=== PATIENT | female | born 1950 | race Caucasian/White ===

== ENCOUNTER 2020-03-06 07:26 | Day surgery (SDC) | payer MEDICARE, SELFPAY ==
[2020-02-29 19:52] VITALS: BMI 36.6
--- NOTE | 2020-03-05 10:35 | P.CONAN_ITS ---
HPI - Anesthesia Eval Consult details Narrative: 69yo F for Colonoscopy [facility] Past Medical History Medical History Arthritis Back pain Depression Diabetes mellitus type 2, diet-controlled Diverticulitis Elevated cholesterol History of benign schwannoma Hypertension Obesity Surgical History Surgical History History of bowel resection History of colonoscopy Social History Social History Smoking Status: Former smoker Meds Allergies Allergy/AdvReac Type Severity Reaction Status Date / Time latex AdvReac Mild Rash Verified 02/29/20 19:51 Codeine Sulfate Allergy Severe Hives Uncoded 02/29/20 19:50 Home Medications Medication Instructions Recorded Confirmed Type Ocuvite 03/06/20 03/06/20 History Vitamin D3 2,000 PO DAILY 03/06/20 History amlodipine 1 tab PO DAILY 03/06/20 03/06/20 History atenolol 1 tab PO DAILY 03/06/20 03/06/20 History citalopram tab PO 03/06/20 History flaxseed oil 03/06/20 History hydrochlorothiazide 1 tab PO DAILY 03/06/20 03/06/20 History rosuvastatin 1 tab PO BEDTIME 03/06/20 03/06/20 History Exam Exam Date and Time: March 05, 2020 1035 Height,Weight and Vital Signs: Height 5 ft 5 in Weight 99.79 kg
[2020-03-06 08:04] VITALS: BP 127/62; PULSE 55; RESP 16; TEMP 36.9; O2SAT 96
--- NOTE | 2020-03-06 08:12 | P.CONAN_ITS ---
[facility] Past Medical History Medical History Arthritis Back pain Depression Diabetes mellitus type 2, diet-controlled Diverticulitis Elevated cholesterol History of benign schwannoma Hypertension Obesity Surgical History Surgical History History of bowel resection History of colonoscopy Social History Social History Smoking Status: Former smoker Smoked in Last 30 Days: No Smoking Quit Date: 2004 Use of substances other than those prescribed or required for medical reasons: No Advance Directives: No Advance Directives Information Provided: No Advance Directives on File: No Recently lost weight without trying: No Meds Allergies Allergy/AdvReac Type Severity Reaction Status Date / Time latex AdvReac Mild Rash Verified 02/29/20 19:51 Codeine Sulfate Allergy Severe Hives Uncoded 02/29/20 19:50 Home Medications Medication Instructions Recorded Confirmed Type Ocuvite 03/06/20 03/06/20 History Vitamin D3 2,000 PO DAILY 03/06/20 History amlodipine 1 tab PO DAILY 03/06/20 03/06/20 History atenolol 1 tab PO DAILY 03/06/20 03/06/20 History citalopram tab PO 03/06/20 History flaxseed oil 03/06/20 History hydrochlorothiazide 1 tab PO DAILY 03/06/20 03/06/20 History rosuvastatin 1 tab PO BEDTIME 03/06/20 03/06/20 History Exam Exam Date and Time: March 06, 2020 0812 Height,Weight and Vital Signs: Height 5 ft 5 in Weight 99.79 kg Last Vital Signs Temp 98.4 F 03/06/20 08:04 Pulse 55 03/06/20 08:04 Resp 16 03/06/20 08:04 BP 127/62 03/06/20 08:04 Pulse Ox 96 03/06/20 08:04 Airway Mallampati Class: II TM Dist: >3cm Neck ROM: Full Loose/Missing/Broken Teeth: No Heart: RRR Lungs: CTA Assessment and Plan Assessment Anesthesia Assessment: Anesthesia Plan Discussed and Chart Reviewed Final Anesthetic Review NPO: Yes ASA Class: II Final Preanesthetic Review: No Changes in Pt Med Stat, Meds/Allgs Chart Reviewed, Consent Obtained/Reviewed and Anes Risks/Benef Reviewed Patient Risk: Intermediate Procedure Risk: Low Anesthetic Plan Anesthetic Plan: MAC: Disposition: Standard PACU
[2020-03-06] MEDS: Lactated Ringers 1,000 ML 100 ML IVCONT (08:15)
--- NOTE | 2020-03-06 08:40 | MHC.SHP ---
Pre-Procedural Eval Section B Chief Complaint: SCREENING Relevant Family History (Specify if Yes): No Relevant Social History: None Present Medications: see Short Stay Collaborative assessment Medical History: Significant History (HTN) History of Previous Operations: Relevant previous surgery/procedure and date(s) (colon resection,perf tic) Allergies: Allergies Allergy/AdvReac Type Severity Reaction Status Date / Time latex AdvReac Mild Rash Verified 02/29/20 19:51 Codeine Sulfate Allergy Severe Hives Uncoded 02/29/20 19:50 Review of Systems Sugical H&P ROS: Negative: Constitution, Cardiovascular, Respiratory, Neurological, Psychiatric, Hem-Onc, Allergic/Immunologic, Gastrointestinal, Genitourinary, Musculoskeletal, Integumentary, Endocrine and Eyes/Ears/Nose/Throat Exam Surgical H&P Exam: Normal: HEENT, Normal: Heart, Normal: Lungs, Normal: Extremities, Normal: Abdomen, Normal: Skin and Normal: Neurological Plan Diagnosis/Plan: Unchanged Patient has been examined and remains a candidate for the planned procedure
--- NOTE | 2020-03-06 08:41 | PM.OP ---
Brief Operative Note Date of Service: 03/06/20 Pre-op diagnosis: colon screen Post-op diagnosis: same Procedure: Operative Information Procedure Description: Colonoscopy COLONOSCOPY Instrument: Olympus variable stiffness pediatric scope 190L Colonoscopy Monitoring: Vital signs and clinical assessment, continuous EKG monitoring, Pulse oximetry, Carbon Dioxide monitoring and blood pressure monitoring were done throughout the procedure. Colon withdrawal time was 16 minutes. Procedure: The patient was placed in the left lateral decubitis position and pre-procedure medications were administered. After a digital rectal examination of the ano-rectum, the video colonoscope was inserted into the rectum and advanced through the colon to the cecum/TI. The colonoscope was slowly withdrawn in a retrograde panoramic fashion and the colon mucosa was carefully examined including a retroflexed view of the rectum. Findings and interventions are described below. Procedure Difficulty: Findings: Terminal Ileum-normal Cecum:normal Ascending Colon: x 2 sessile polyps removed with cold snare, measured about 8-10 mm each, one site was oozing -x 2 clips applied with cessation Transverse Colon -normal Descending Colon:diverticulosis noted Sigmoid Colon: end to end anastomosis noted from prior surgery Rectum: Retroflexion with small internal hemorrhoids, grade I, sessile polyp 8-9 mm removed with cold snare Anorectum - normal Colon preparation: Fenton Bowel Preparation Scale Right colon; 3 Transverse colon: 2 Left colon; 2 (0 = Unprepared colon segment with mucosa not seen due to solid stool that cannot be cleared. 1 = Portion of mucosa of the colon segment seen, but other areas of the colon segment not well seen due to staining, residual stool and/or opaque liquid. 2 = Minor amount of residual staining, small fragments of stool and/or opaque liquid, but mucosa of colon segment seen well. 3 = Entire mucosa of colon segment seen well with no residual staining, small fragments of stool or opaque liquid) Impression and Post Procedure Diagnosis: internal hemorrhoids polyps diverticulosis Plan: High fiber diet leaflet Avoid straining at stool, epsom salts and sitz bath, anusol supps or cream prn Repeat Colonoscopy in 3-5 years pending path or earlier if clinically indicated Above findings were reviewed with the patient and relevant handouts were provided if indicated. Surgeon: Vivian Mcwilliams MD Anesthesia: MAC Estimated blood loss (mL): 0 Condition: stable Disposition: PACU
[2020-03-06 09:20] VITALS: BP 104/49; PULSE 52; RESP 18; TEMP 36.1; O2SAT 98
[2020-03-06 09:35] VITALS: BP 123/60; PULSE 55; RESP 18; O2SAT 99
[2020-03-06 09:49] VITALS: BP 132/65; PULSE 50; RESP 18; TEMP 36.1; O2SAT 98
--- NOTE | 2020-03-06 10:02 | HO.POSTANES ---
Post Anesthesia Evaluation Post Anesthesia Evaluation Vital Signs: Vital Signs Temp Pulse Resp BP Pulse Ox 03/06/20 09:49 97 F 50 18 132/65 98 03/06/20 09:35 55 18 123/60 99 03/06/20 09:20 97.0 F 52 18 104/49 L 98 03/06/20 08:04 98.4 F 55 16 127/62 96 Anesthesia: Monitored Mental Status: Awake Pain Control: Satisfactory Nausea/Vomiting: None Hydration: Adequate Anesthesia-Related Issues: No Anes. Related Issues
== END 2020-03-06 10:28 | disposition home or self-care (01) ==
PROVIDERS: PCP Hospitalist; Visit Provider Internal Medicine Gastroenterology
PROC: 0DJD8ZZ Inspection of Lower Intestinal Tract, Via Natural or Artificial Opening Endoscopic (ICD-10-PCS; CPT 45378; principal; 2020-03-06 08:30)
DX: Z12.11 Encounter for screening for malignant neoplasm of colon (principal); D12.2 Benign neoplasm of ascending colon; K62.1 Rectal polyp; K57.30 Diverticulosis of large intestine without perforation or abscess without bleeding; K64.0 First degree hemorrhoids; Z98.0 Intestinal bypass and anastomosis status
CPT/HCPCS: 45385; 45380; 88305

== ENCOUNTER → 2020-03-13 08:49 | Outpatient (BNVA) | payer MEDICARE, SELFPAY | PROVIDERS: Visit Provider Physician Assistant | DX: Z13.89 Encounter for screening for other disorder (principal) | CPT/HCPCS: Q3014 ==

== ENCOUNTER 2021-05-18 08:55 | Outpatient (REF) | payer MEDICARE, SELFPAY ==
[2021-05-18 11:20] LABS: Hematocrit 42.7 % (37.0-47.0); Hemoglobin 13.7 g/dl (12.0-16.0); Mean Corpuscular HGB Conc 32.1 g/dl (31.0-35.0); Mean Corpuscular Hemoglobin 28.7 pg (27.0-33.0); Mean Corpuscular Volume 89.3 fL (80.0-98.0); Mean Platelet Volume 10.3 fL (9.4-12.3); Platelet Count 314 X10*3/uL (160-400); Red Blood Count 4.78 X10*6/uL (4.20-5.50); Red Cell Distribution Width 12.6 % (11.0-16.0); White Blood Count 5.9 X10*3/uL (4.8-10.8)
[2021-05-18 11:45] LABS: Alanine Aminotransferase 27 U/L (0-31); Albumin Level 4.5 g/dL (3.5-5.0); Alkaline Phosphatase 54 U/L (39-117); Anion Gap 14 (12-20); Aspartate Amino Transferase 36 U/L (5-31); Bilirubin Total 0.6 mg/dL (0.0-1.0); Blood Urea Nitrogen 18 mg/dL (9-16); Calcium 9.8 mg/dL (8.4-10.2); Carbon Dioxide 28 mmol/L (22-29); Chloride 101 mmol/L (96-108); Cholesterol 151 mg/dL; Estimated Glomerular Filt Rate > 60; Glucose Fasting 114 mg/dL (60-99); HDL Cholesterol 43 mg/dL; LDL Cholesterol Calculated 83 mg/dl; Sodium 139 mmol/L (135-145); Total Protein 7.1 g/dL (6.5-8.0); Triglycerides 126 mg/dL
== END 2021-05-18 08:56 | disposition home or self-care (01) ==
LOC: HO.WFDLDS 08:55
PROVIDERS: Visit Provider Hospitalist
DX: Z00.00 Encounter for general adult medical examination without abnormal findings (principal)
CPT/HCPCS: 36415; 80053; 80061; 84443; 85027

== ENCOUNTER 2022-02-02 09:55 | Outpatient (REF) | payer MEDICARE, SELFPAY ==
--- NOTE | ~2022-02-02 | MM_ITS ---
EXAMINATION: MM SCREENING DIGITAL BREAST TOMOSYNTHESIS, BILATERAL CLINICAL INFORMATION: Screening. Asymptomatic. Prior [id number] mammography currently unavailable. No known family history breast cancer. COMPARISON: None. TECHNIQUE: Digital breast tomosynthesis is performed in both the craniocaudal and mediolateral oblique views along with computer-aided detection (CAD). Synthesized 2D images are generated from the tomosynthesis. Additional bilateral exaggerated CC views are provided. FINDINGS: There are scattered areas of fibroglandular density (ACR BI-RADS breast composition Category b). There are no significant masses, abnormal calcifications, or other abnormalities. No architectural abnormality. The axilla and skin contours are unremarkable. Radiology department staff will attempt to retrieve prior [id number] mammography to allow for comparison in an addendum report. MM/MM tomosynthesis screening BI IMPRESSION: No mammographic evidence of malignancy. ASSESSMENT: BI-RADS 1: Negative RECOMMENDATION: -Routine annual mammography screening. -Radiology department staff will attempt to retrieve prior [id number] mammography to allow for comparison in an addendum report. This patient's information was entered into a reminder system with a target due date for their next mammogram.
== END 2022-02-02 09:56 | disposition home or self-care (01) ==
LOC: HO.MAMMO 09:55
PROVIDERS: Visit Provider Hospitalist
DX: Z12.31 Encounter for screening mammogram for malignant neoplasm of breast (principal)
CPT/HCPCS: 77063; 77067

== ENCOUNTER 2022-07-09 07:47 | Outpatient (REF) | payer MEDICARE, SELFPAY ==
[2022-07-09 08:09] LABS: Hematocrit 42.3 % (37.0-47.0); Mean Corpuscular HGB Conc 33.1 g/dl (31.0-35.0); Mean Corpuscular Hemoglobin 29.3 pg (27.0-33.0); Mean Corpuscular Volume 88.5 fL (80.0-98.0); Mean Platelet Volume 9.7 fL (9.4-12.3); Platelet Count 297 X10*3/uL (160-400); Red Blood Count 4.78 X10*6/uL (4.20-5.50); Red Cell Distribution Width 13.3 % (11.0-16.0); White Blood Count 7.4 X10*3/uL (4.8-10.8)
[2022-07-09 08:36] LABS: Alanine Aminotransferase 19 U/L (0-31); Albumin Level 4.3 g/dL (3.5-5.0); Alkaline Phosphatase 63 U/L (39-117); Anion Gap 11 (12-20); Aspartate Amino Transferase 21 U/L (5-31); Bilirubin Total 0.6 mg/dL (0.0-1.0); Blood Urea Nitrogen 11 mg/dL (9-16); Calcium 9.5 mg/dL (8.4-10.2); Carbon Dioxide 30 mmol/L (22-29); Chloride 105 mmol/L (96-108); Cholesterol 163 mg/dL; Estimated Glomerular Filt Rate > 60; Glucose Fasting 121 mg/dL (60-99); HDL Cholesterol 46 mg/dL; LDL Cholesterol Calculated 92 mg/dl; Potassium 4.5 mmol/L (3.3-5.1); Sodium 141 mmol/L (135-145); Total Protein 6.6 g/dL (6.5-8.0); Triglycerides 127 mg/dL
[2022-07-09 08:51] LABS: TSH reflex Free T4 1.19 uIU/mL (0.32-4.0)
== END 2022-07-09 07:48 | disposition home or self-care (01) ==
LOC: HO.LAB 07:47
PROVIDERS: PCP Hospitalist; Visit Provider Hospitalist
DX: Z00.00 Encounter for general adult medical examination without abnormal findings (principal); R53.83 Other fatigue; E11.9 Type 2 diabetes mellitus without complications; I10 Essential (primary) hypertension
CPT/HCPCS: 36415; 80053; 80061; 84443; 85027

== ENCOUNTER 2022-07-31 07:32 | Outpatient (REF) | payer MEDICARE, SELFPAY ==
[2022-07-31 08:34] LABS: Estimated Average Glucose 120 mg/dL; Hemoglobin A1C 148.4108 umol/L; Hemoglobin A1c % 5.8 %
== END 2022-07-31 07:33 | disposition home or self-care (01) ==
LOC: HO.LAB 07:32
PROVIDERS: Visit Provider Hospitalist
DX: R73.9 Hyperglycemia, unspecified (principal)
CPT/HCPCS: 36415; 83036

== ENCOUNTER 2023-03-29 11:21 | Outpatient (AMB) | payer MEDICARE, SELFPAY ==
--- NOTE | 2023-03-29 11:22 | A.OFFPC_ITS ---
Vital Signs 03/29/23 11:23 Height 5 ft 4.25 in Weight 223 lb 6 oz BMI 38.0 BP 136/82 Blood Pressure Location Rt brachial Position Sitting Respiration 13 Pulse 99 Pulse Source Pulse Oximeter Temp 97.5 F Temp Source Temporal Artery Scan Pulse Oximetry (%) 99 Oxygen Delivery Method Room Air Intake Visit Reasons: Citalopram and atenolol refills Intake Note: Patient would like to also see if her rosuvastatin is suppose to be at current dosing. Briquette Operator Required: No Accompanied by: Self / Same As Patient Allergies codeine Allergy (Severe, Verified 03/29/23 11:37) Codeine Sulfate- HIVES latex Adverse Reaction (Mild, Verified 03/29/23 11:37) Rash Medication List - Last Reconciled 03/29/23 by Francisco Schrader CNP amlodipine 5 mg PO DAILY atenolol 50 mg PO DAILY cetirizine (Zyrtec) 10 mg PO DAILY citalopram 40 mg PO DAILY 3 months [flaxseed oil ] fluticasone propionate 50 mcg/actuation (Allergy Relief (fluticasone)) 2 sprays intranasal DAILY PRN hydrochlorothiazide 25 mg PO DAILY [Ocuvite ] rosuvastatin 20 mg PO BEDTIME [Vitamin D3 2,000 PO DAILY] Tobacco use date assessed: 03/29/23 Fall risk assessment: 2 + Falls in past year Last assessed Fall Risk: 03/29/23 Dental Screening Dental Screen Date: 03/29/23 Did you have a dental visit in the last 12 months?: No Did you have a dental problem in the last 6 months where you did not have access to dental care?: No Was dental information given to patient?: Patient has dentist HPI HPI Comments History of Present Illness Details 72-year-old female presents for medicati on refills Her former PCP is LUIS FERNANDO who is no longer with the practice. Her last office visit and blood work was in June 2022 She has history of hypertension, HTN, obesity, pre-diabetes, anxiety, and depression She offers no complaints and denies acute symtoms at this time She requests refills of her Citalopram and Atenolol. She notes that she ran out of Atenolol 3 weeks ago and has not been taking the medication [facility] Medical History (Updated 03/29/23 @ 12:21 by Francisco Schrader CNP) Obesity History of benign schwannoma Arthritis Back pain Diverticulitis Diabetes mellitus type 2, diet-controlled Depression Elevated cholesterol Hypertension Surgical History History of surgery History of colonoscopy History of bowel resection Family History Family/Other Chronic mental illness Son In good health Son In good health Daughter In good health Mother Alzheimer disease Social History Housing: House Patient Tobacco Use Status: Former Tobacco user e-Cigarette/Vaping Use: Never Used Second Hand Smoke Exposure: No service: No Current occupational status: retired Current occupational exposures/hazards: No Cognitive needs: No Hearing needs: Yes Vision needs: Yes Questionnaire AASHISH-7 AMB Questionnaire AASHISH-7 Date AASHISH - 7 assessed: 07/08/22 Source: Developed by Drs. William Haji, Kristy Baker, Jeffrey Duran and colleagues, with an educational aranza from [employer]. Review of Systems Const Details: Const Denies chills, Denies fatigue, Denies fever(s), Denies headache(s) and Denies weakness ENT Denies dizziness and Denies headache(s) Card Denies chest pain, Denies lightheadedness, Denies dyspnea and Denies other (Palpitations) Resp Denies cough, Denies dyspnea, Denies wheezing and Denies other ( shortness of breath) GI Denies abdominal pain, Denies melena, Denies hematochezia, Denies change in bowel habits, Denies dyspepsia and Denies nausea Denies hematuria and Denies dysuria Musc Denies abnormal gait, Denies myalgias, Denies arthralgias, Denies numbness and Denies tingling Skin/Breast Denies rash, Denies unusual bruising and Denies wounds Neuro Denies abnormal gait, Denies dizziness, Denies headache(s), Denies memory loss, Denies numbness, Denies Sensory deficit (Neuro), Denies tingling and Denies weakness Psych Denies anxiety, Denies depression, Denies memory loss Endo Denies cold intolerance, Denies fatigue, Denies heat intolerance, Denies polydipsia and Denies polyuria Aller/Immun Denies wheezing Physical exam (Primary Care) Vital Signs: Last Vital Signs Temp 97.5 F 03/29/23 11:23 Pulse 99 03/29/23 11:23 Resp 13 03/29/23 11:23 BP 136/82 03/29/23 11:23 Pulse Ox 99 03/29/23 11:23 Oxygen Delivery Method Room Air 03/29/23 11:23 BMI result Body Mass Index 38.0 Tobacco/Smoking Status: Tobacco use Status Tobacco use date assessed 03/29/23 03/29/23 11:36 Patient Tobacco Use Status Former Tobacco user 03/29/23 11:36 e-Cigarette/Vaping Use Never Used 03/29/23 11:36 Const Other: General: no acute distress and well developed Nutritional Appearance: well nourished Orientation/consciousness: patient oriented x3 HENMT Head: Yes normocephalic and Yes atraumatic Eyes General: appearance normal, both eyes and all related structures Pupils: Equal, round and reactive pupils present EOM: EOMs intact bilaterally Resp Effort & Inspection: normal respiratory effort Auscultation: clear to auscultation bilaterally Cardio Rate: regular rate Rhythm: regular rhythm Heart sounds: S1 normal heart sound present, S2 normal heart sound present, no gallops, no murmurs and no rubs GI Palpation (GI): No Abdominal aortic bruit present, Soft to palpation, nontender, No hepatosplenomegaly present and No Rebound tenderness present Auscultation: normal bowel sounds General: Yes no CVA tenderness Back/Spine/Pelvis Back: no CVA tenderness Cervical Spine: cervical ROM normal and No Cervical spine tenderness Thoracic/Lumbar Spine: thoraco-lumbar ROM normal, No pain with thoraco-lumbar ROM, No thoracic spinal tenderness and No lumbar spinal tenderness Extrem General: Yes normal to inspection, No edema and No calf tenderness Skin General: warm and dry. Normal skin color. Normal skin turgor Lesions: no lesions Rashes: no rashes Trauma: no lacerations or abrasions Wounds: no wounds Nails: normal Neuro General: patient oriented x3, gait normal and no focal neuro deficit Cranial nerves: Yes Equal, round and reactive pupils present Cognition (Neuro): normal cognition Gait exam (Neuro): Normal gait present Sensory Exam: No Sensory deficit (Neuro) Psych Appearance: grossly normal Affect: normal affect Attitude: cooperative Thought process: Normal thought process present Assessment and Plan Assessment & Plan (1) Hypertension: Code(s): I10 - Essential (primary) hypertension Plan: BP is 136/82, withing goal of less than 149/90 Atenolol ordered Continue current treatment regimen Follow-up as planned for transfer of care Return with symptoms or concerns Verbalized understanding and agreed with treatment plan (2) Elevated cholesterol: Code(s): E78.00 - Pure hypercholesterolemia, unspecified Plan: Lipid panel ordered. Will make changes as needed Continue current treatment regimen Follow-up as planned Verbalized understanding and agreed with treatment plan (3) Anxiety and depression: Code(s): F41.9 - Anxiety disorder, unspecified; F32.A - Depression, unspecified Plan: Citalopram refilled. Advised to take as prescribed Follow-up as planned for transfer of care Verbalized understanding and agreed with plan Orders: Orders Lipid Panel Today E78.00 - Pure hypercholesterolemia, unspecified Medications: Changed From fluticasone propionate 50 mcg/actuation (Allergy Relief (fluticasone)) administer into each nostril 2 sprays intranasal DAILY 1 month 16 grams 6RF J30.2 - Other seasonal allergic rhinitis To fluticasone propionate 50 mcg/actuation (Allergy Relief (fluticasone)) administer into each nostril 2 sprays intranasal DAILY PRN J30.2 - Other seasonal allergic rhinitis From citalopram 40 mg PO DAILY 3 months 90 tabs 1RF F32.9 - Major depressive disorder, single episode, unspecified To citalopram 40 mg PO DAILY 90 days 90 tabs 1RF F32.9 - Major depressive disorder, single episode, unspecified Refilled atenolol 50 mg PO DAILY 90 tabs 1RF Coding Level of Care Code Est Pt Level 3 (33988) Diagnoses Hypertension I10 Elevated cholesterol E78.00 Anxiety and depression F41.9; F32.A
[2023-03-29 11:23] VITALS: BP 136/82; PULSE 99; RESP 13; TEMP 36.4; O2SAT 99; BMI 38.0
== END 2023-03-29 12:01 | disposition home or self-care (01) ==
PROVIDERS: PCP Hospitalist; Visit Provider Nurse Practitioner Family
DX: I10 Essential (primary) hypertension (principal); E78.00 Pure hypercholesterolemia, unspecified; F41.9 Anxiety disorder, unspecified; F32.A Depression, unspecified
CPT/HCPCS: 99213

== ENCOUNTER 2023-04-02 07:11 | Outpatient (REF) | payer MEDICARE, SELFPAY | END 2023-04-02 07:12 | disposition home or self-care (01) | LOC: HO.LAB 07:11 | PROVIDERS: PCP Nurse Practitioner Family; Visit Provider Nurse Practitioner Family | DX: E78.00 Pure hypercholesterolemia, unspecified (principal) | CPT/HCPCS: 36415; 80061 ==

== ENCOUNTER 2023-04-26 11:03 | Outpatient (AMB) | payer MEDICARE, SELFPAY ==
--- NOTE | 2023-04-26 11:05 | MHC.PC.OV ---
Vital Signs 04/26/23 11:06 Height 5 ft 4.25 in Weight 225 lb BMI 38.3 BP 132/68 Blood Pressure Location Rt brachial Position Sitting Respiration 14 Pulse 92 Pulse Source Pulse Oximeter Temp 97.4 F Temp Source Temporal Artery Scan Pulse Oximetry (%) 98 Oxygen Delivery Method Room Air Intake Visit Reasons: Transfer of care - see comment Microchip Specialist Required: No Accompanied by: Self / Same As Patient Allergies codeine Allergy (Severe, Verified 04/26/23 11:21) Codeine Sulfate- HIVES latex Adverse Reaction (Mild, Verified 04/26/23 11:21) Rash Medication List - Last Reconciled 04/26/23 by Francisco Schrader CNP amlodipine 5 mg PO DAILY atenolol 50 mg PO DAILY cetirizine (Zyrtec) 10 mg PO DAILY citalopram 40 mg PO DAILY 90 days [flaxseed oil ] fluticasone propionate 50 mcg/actuation (Allergy Relief (fluticasone)) 2 sprays intranasal DAILY PRN hydrochlorothiazide 25 mg PO DAILY [Ocuvite ] rosuvastatin 20 mg PO BEDTIME [Vitamin D3 2,000 PO DAILY] Tobacco use date assessed: 04/26/23 Fall risk assessment: 2 + Falls in past year Last assessed Fall Risk: 04/26/23 Dental Screening Dental Screen Date: 04/26/23 Did you have a dental visit in the last 12 months?: No Did you have a dental problem in the last 6 months where you did not have access to dental care?: No Was dental information given to patient?: Patient has dentist HPI HPI Comments History of Present Illness Details 72-year-old female presents for transfer of care Her former PCP is LUIS FERNANDO who is no longer with the practice. Her last physical was in 05/2021. Her last office visit and blood work was in June 2022 She has history of hypertension, HTN, obesity, pre-diabetes, anxiety, depression, and tubular adenoma of colon She admits to taking her medications as prescribed without adverse reactions She notes that she is tired and sad. She also reports lack of energy and pleasure in doing things she enjoys. She states that the world and news is toxic. She attributes most of her symptoms related missing her children who live in [facility] and her best friend who form brain infection a few months ago. She lives with her whom she has been to for 26 years. Her is very supportive. Celexa is no longer effective in managing her symptoms. She has not been doing physical exercise. Last colonoscopy almost 2 years ago: tubular adenoma. She is required to have colonoscopy every 2 years She no longer performs pap smears tests Last bone density scan about 10 years ago: osteopenia PNA/Shingrix/Flu vaccines: up-to-date [facility] Medical History (Updated 04/26/23 @ 12:13 by Francisco Schrader CNP) Obesity History of benign schwannoma Arthritis Back pain Diverticulitis Diabetes mellitus type 2, diet-controlled Depression Elevated cholesterol Hypertension Surgical History History of surgery History of colonoscopy History of bowel resection Family History (Updated 04/26/23 @ 11:20 by Loretta Clarke MA) Family/Other Chronic mental illness Son In good health Son In good health Daughter In good health Lupus Mother Alzheimer disease Other Mental health disorder Social History Housing: House Patient Tobacco Use Status: Former Tobacco user e-Cigarette/Vaping Use: Never Used Second Hand Smoke Exposure: No service: No Current occupational status: retired Current occupational exposures/hazards: No Cognitive needs: No Hearing needs: Yes Vision needs: Yes Questionnaire PHQ-9 Over the last 2 weeks, how often have you been bothered by any of the following problems? 1. Little interest or pleasure in doing things: nearly every day 2. Feeling down, depressed, or hopeless: more than half the days 3. Trouble falling or staying asleep, or sleeping too much: nearly every day 4. Feeling tired or having little energy: nearly every day 5. Poor appetite or overeating: nearly every day 6. Feeling bad about yourself - or that you are a failure or have let yourself or your family down: more than half the days 7. Trouble concentrating on things, such as reading the newspaper or watching television: nearly every day 8. Moving or speaking so slowly that other people could have noticed. Or the opposite - being so fidgety or restless that you have been moving around a lot more than usual: several days 9. Thoughts that you would be better off or of hurting yourself in some way: not at all Total score: 20 Depression Screening Interpretation: Positive Depression Screening Follow-up: Existing condition, In treatment, New Medication prescribed and Community Mental Health Worker F/U Depression Screening Done: Yes 66350 - PHQ-9 Billing: Yes Source: Developed by Drs. William Haji, Kristy Baker, Jeffrey Duran and colleagues, with an educational aranza from [employer]. Thrive Questionnaire Date Thrive assessed: 04/26/23 I am a: Patient What is your living situation today?: I have a steady place to live Within the past 12 months, did the food you bought not last and you didn't have the money to get more?: Never true Within the past 12 months, did you worry whether your food would run out before you got money to buy more?: Never true Do you have trouble paying for medicines?: No Do you have trouble getting transportation to medical appointments?: No Do you have trouble paying your heating and electricity bill?: No Do you have trouble taking care of your child, family member or friend?: No Do you have trouble with day-to-day activities such as bathing, preparing meals, shopping, managing finances, etc.?: No Are you currently unemployed and looking for a job?: No Are you interested in more education?: No Please select the resources that you would like help with: None Currently or been in a relationship where the following occur: no concerns reported THRIVE Score: 0 AUDIT C Alcohol Use Questionnaire (AUDIT-C) 1. How often do you have a drink containing alcohol?: Never 3. How often do you have six or more drinks on one occasion?: Never Total Score: 0 AASHISH-7 AMB Questionnaire AASHISH-7 Date AASHISH - 7 assessed: 04/26/23 Feeling nervous, anxious, or on edge: 1 = Several days Not being able to stop or control worryin = Several days Worrying too much about different things: 0 = Not at all Trouble relaxin = Not at all Being so restless that it is hard to sit still: 0 = Not at all Becoming easily annoyed or irritable: 1 = Several days Feeling afraid as if something awful might happen: 0 = Not at all Total AASHISH-7 score (0-4 normal; 5-9 mild; 10-14 moderate; 15-21 severe): 3 Source: Developed by Drs. William Haji, Kristy Baker, Jeffrey Duran and colleagues, with an educational aranza from [employer]. AASHISH-7 Assessment Billing AASHISH-7 Assessment Tool: AASHISH-7 Assessment 36726 Review of Systems Const Details: Const Denies chills, Denies fatigue, Denies fever(s), Denies headache(s) and Denies weakness ENT Denies dizziness and Denies headache(s) Card Denies chest pain, Denies lightheadedness, Denies dyspnea and Denies other (Palpitations) Resp Denies cough, Denies dyspnea, Denies wheezing and Denies other ( shortness of breath) GI Denies abdominal pain, Denies melena, Denies hematochezia, Denies change in bowel habits, Denies dyspepsia and Denies nausea Denies hematuria and Denies dysuria Musc Denies abnormal gait, Denies myalgias, Denies arthralgias, Denies numbness and Denies tingling Skin/Breast Denies rash, Denies unusual bruising and Denies wounds Neuro Denies abnormal gait, Denies dizziness, Denies headache(s), Denies memory loss, Denies numbness, Denies Sensory deficit (Neuro), Denies tingling and Denies weakness Psych Denies anxiety, Reports depression, Denies memory loss Endo Denies cold intolerance, Denies fatigue, Denies heat intolerance, Denies polydipsia and Denies polyuria Aller/Immun Denies wheezing Physical exam (Primary Care) Tobacco/Smoking Status: Tobacco use Status Tobacco use date assessed 03/29/23 03/29/23 11:36 Patient Tobacco Use Status Former Tobacco user 03/29/23 11:36 e-Cigarette/Vaping Use Never Used 03/29/23 11:36 Depression Screening Interpretation: Positive Depression Screening Follow-up: Existing condition, In treatment, New Medication prescribed and Community Mental Health Worker F/U Currently or been in a relationship where the following occur: no concerns reported Const Other: General: no acute distress and well developed Nutritional Appearance: well nourished Orientation/consciousness: patient oriented x3 HENMT Head: Yes normocephalic and Yes atraumatic Eyes General: appearance normal, both eyes and all related structures Pupils: Equal, round and reactive pupils present EOM: EOMs intact bilaterally Resp Effort & Inspection: normal respiratory effort Auscultation: clear to auscultation bilaterally Cardio Rate: regular rate Rhythm: regular rhythm Heart sounds: S1 normal heart sound present, S2 normal heart sound present, no gallops, no murmurs and no rubs GI Palpation (GI): No Abdominal aortic bruit present, Soft to palpation, nontender, No hepatosplenomegaly present and No Rebound tenderness present Auscultation: normal bowel sounds General: Yes no CVA tenderness Back/Spine/Pelvis Back: no CVA tenderness Cervical Spine: cervical ROM normal and No Cervical spine tenderness Thoracic/Lumbar Spine: thoraco-lumbar ROM normal, No pain with thoraco-lumbar ROM, No thoracic spinal tenderness and No lumbar spinal tenderness Extrem General: Yes normal to inspection, No edema and No calf tenderness Skin General: warm and dry. Normal skin color. Normal skin turgor Neuro General: patient oriented x3, gait normal and no focal neuro deficit Cranial nerves: Yes Equal, round and reactive pupils present Cognition (Neuro): normal cognition Gait exam (Neuro): Normal gait present Sensory Exam: No Sensory deficit (Neuro) Psych Appearance: grossly normal Affect: normal affect Attitude: cooperative Thought process: Normal thought process present Assessment and Plan Assessment & Plan (1) Major depressive disorder: Code(s): F32.9 - Major depressive disorder, single episode, unspecified Plan: Reports significant depression symptoms not relieved with citalopram PHQ-9 score revealed severe anxiety. AASHISH-7 score is normal Citalopram discontinued Venlafaxine ordered. Take as prescribed Routine exercise encouraged She met with the community navigator who will refer her to a therapist Follow-up in 2 weeks or return sooner with worsening or new symptoms Verbalized understanding and agreed with treatment plan (2) HTN, goal below 140/80: Code(s): I10 - Essential (primary) hypertension Plan: Blood pressure is 132/68, within goal of less than 140/80 Continue current treatment regimen Low-sodium diet encouraged Will continue to monitor Verbalized understanding and agreed with the plan (3) Elevated cholesterol: Code(s): E78.00 - Pure hypercholesterolemia, unspecified Plan: Recent lab results reviewed with the patient Unremarkable findings except for slightly elevated triglycerides, 159 Continue current treatment regimen Advised to limit foods high in saturated fat and avoid foods high in trans fat Routine exercise encouraged Will continue to monitor Verbalized understanding and agreed with treatment plan Medications: New venlafaxine ER (Effexor XR) 75 mg PO QAM 30 days 30 caps 3RF Discontinued citalopram Discontinued Reason: Doctor's Order 40 mg PO DAILY 90 days 90 tabs 1RF F32.9 - Major depressive disorder, single episode, unspecified Coding Level of Care Code Est Pt Level 4 (57053) Diagnoses Major depressive disorder F32.9 HTN, goal below 140/80 I10 Elevated cholesterol E78.00 Additional Codes AASHISH-7 Assessment Billing - AASHISH-7 Assessment Tool: AASHISH-7 Assessment 84395 ([id number])
[2023-04-26 11:06] VITALS: BP 132/68; PULSE 92; RESP 14; TEMP 36.3; O2SAT 98; BMI 38.3
== END 2023-04-26 12:16 | disposition home or self-care (01) ==
PROVIDERS: PCP Hospitalist; Visit Provider Nurse Practitioner Family
DX: I10 Essential (primary) hypertension (principal); F32.9 Major depressive disorder, single episode, unspecified; E78.00 Pure hypercholesterolemia, unspecified
CPT/HCPCS: 96127; 99214

== ENCOUNTER 2023-05-10 15:32 | Outpatient (AMB) | payer MEDICARE, SELFPAY ==
[2023-05-10 15:41] VITALS: BP 134/70; PULSE 70; RESP 13; TEMP 36.4; O2SAT 99; BMI 38.2
--- NOTE | 2023-05-10 15:41 | A.OFFPC_ITS ---
Vital Signs 05/10/23 15:41 Height 5 ft 4.25 in Weight 224 lb 6 oz BMI 38.2 BP 134/70 Blood Pressure Location Rt brachial Position Sitting Respiration 13 Pulse 70 Pulse Source Pulse Oximeter Temp 97.6 F Temp Source Temporal Artery Scan Pulse Oximetry (%) 99 Oxygen Delivery Method Room Air Intake Visit Reasons: 2 wks depression Project Inspector Required: No Accompanied by: Self / Same As Patient Allergies codeine Allergy (Severe, Verified 05/10/23 16:10) Codeine Sulfate- HIVES latex Adverse Reaction (Mild, Verified 05/10/23 16:10) Rash Medication List - Last Reconciled 05/10/23 by Francisco Schrader CNP amlodipine 5 mg PO DAILY atenolol 50 mg PO DAILY cetirizine (Zyrtec) 10 mg PO DAILY [flaxseed oil ] fluticasone propionate 50 mcg/actuation (Allergy Relief (fluticasone)) 2 sprays intranasal DAILY PRN hydrochlorothiazide 25 mg PO DAILY [Ocuvite ] rosuvastatin 20 mg PO BEDTIME venlafaxine ER (Effexor XR) 75 mg PO QAM 30 days [Vitamin D3 2,000 PO DAILY] Tobacco use date assessed: 04/26/23 Fall risk assessment: 2 + Falls in past year Last assessed Fall Risk: 05/10/23 Dental Screening Dental Screen Date: 05/10/23 Did you have a dental visit in the last 12 months?: Yes Did you have a dental problem in the last 6 months where you did not have access to dental care?: No Was dental information given to patient?: Patient has dentist HPI HPI Comments History of Present Illness Details 72-year-old female presents for anxiety and depression follow-up She was started on Effexor 2 weeks ago. She admits to taking the medications as prescribed without adverse reactions She notes that I have a little more energy. She notes that her night sleep is still poor. She wakes up frequently. She currently sleeps an average of 5 hours. She reports improved anxiety and depression symptoms. She has been walking the dog more. No current structured physical exercise. [facility] Medical History Obesity History of benign schwannoma Arthritis Back pain Diverticulitis Diabetes mellitus type 2, diet-controlled Depression Elevated cholesterol Hypertension Surgical History History of surgery History of colonoscopy History of bowel resection Family History Family/Other Chronic mental illness Son In good health Son In good health Daughter In good health Lupus Mother Alzheimer disease Other Mental health disorder Social History Housing: House Patient Tobacco Use Status: Former Tobacco user e-Cigarette/Vaping Use: Never Used Second Hand Smoke Exposure: No service: No Current occupational status: retired Current occupational exposures/hazards: No Cognitive needs: No Hearing needs: Yes Vision needs: Yes Questionnaire PHQ-9 Over the last 2 weeks, how often have you been bothered by any of the following problems? 1. Little interest or pleasure in doing things: more than half the days 2. Feeling down, depressed, or hopeless: several days 3. Trouble falling or staying asleep, or sleeping too much: nearly every day 4. Feeling tired or having little energy: nearly every day 5. Poor appetite or overeating: nearly every day 6. Feeling bad about yourself - or that you are a failure or have let yourself or your family down: several days 7. Trouble concentrating on things, such as reading the newspaper or watching television: several days 8. Moving or speaking so slowly that other people could have noticed. Or the opposite - being so fidgety or restless that you have been moving around a lot more than usual: not at all 9. Thoughts that you would be better off or of hurting yourself in some way: not at all Total score: 14 Depression Screening Interpretation: Positive Depression Screening Follow-up: Existing condition and In treatment Depression Screening Done: Yes 62457 - PHQ-9 Billing: Yes Source: Developed by Drs. William Haji, Kristy Baker, Jeffrey Duran and colleagues, with an educational aranza from [employer]. Thrive Questionnaire Date Thrive assessed: 04/26/23 AASHISH-7 AMB Questionnaire AASHISH-7 Date AASHISH - 7 assessed: 05/10/23 Feeling nervous, anxious, or on edge: 1 = Several days Not being able to stop or control worryin = Several days Worrying too much about different things: 2 = More than half the days Trouble relaxin = Several days Being so restless that it is hard to sit still: 0 = Not at all Becoming easily annoyed or irritable: 2 = More than half the days Feeling afraid as if something awful might happen: 0 = Not at all Total AASHISH-7 score (0-4 normal; 5-9 mild; 10-14 moderate; 15-21 severe): 7 Source: Developed by Drs. William Haji, Kristy Baker, Jeffrey Duran and colleagues, with an educational aranza from [employer]. AASHISH-7 Assessment Billing AASHISH-7 Assessment Tool: AASHISH-7 Assessment 81311 Review of Systems Const Details: Const Denies chills, Denies fatigue, Denies fever(s), Denies headache(s) and Denies weakness ENT Denies dizziness and Denies headache(s) Card Denies chest pain, Denies lightheadedness, Denies dyspnea and Denies other (Palpitations) Resp Denies cough, Denies dyspnea, Denies wheezing and Denies other ( shortness of breath) GI Denies abdominal pain, Denies melena, Denies hematochezia, Denies change in katelynn wel habits, Denies dyspepsia and Denies nausea Denies hematuria and Denies dysuria Musc Denies abnormal gait, Denies myalgias, Denies arthralgias, Denies numbness and Denies tingling Skin/Breast Denies rash, Denies unusual bruising and Denies wounds Neuro Denies abnormal gait, Denies dizziness, Denies headache(s), Denies memory loss, Denies numbness, Denies Sensory deficit (Neuro), Denies tingling and Denies weakness Psych Denies anxiety, Denies depression, Denies memory loss Endo Denies cold intolerance, Denies fatigue, Denies heat intolerance, Denies polydipsia and Denies polyuria Aller/Immun Denies wheezing Physical exam (Primary Care) Vital Signs: Last Vital Signs Temp 97.6 F 05/10/23 15:41 Pulse 70 05/10/23 15:41 Resp 13 05/10/23 15:41 BP 134/70 05/10/23 15:41 Pulse Ox 99 05/10/23 15:41 Oxygen Delivery Method Room Air 05/10/23 15:41 BMI result Body Mass Index 38.2 Tobacco/Smoking Status: Tobacco use Status Tobacco use date assessed 04/26/23 05/10/23 16:00 Patient Tobacco Use Status Former Tobacco user 05/10/23 16:00 e-Cigarette/Vaping Use Never Used 05/10/23 16:00 PHQ-9: PHQ-9 Score PHQ-9: Total score 14 05/10/23 16:00 Depression Screening Interpretation: Positive Depression Screening Follow-up: Existing condition and In treatment Thrive Assessment: Date of Thrive Assessment Date Thrive assessed 04/26/23 05/10/23 16:00 Const Other: General: no acute distress and well developed Nutritional Appearance: well nourished Orientation/consciousness: patient oriented x3 HENMT Head: Yes normocephalic and Yes atraumatic Eyes General: appearance normal, both eyes and all related structures Pupils: Equal, round and reactive pupils present EOM: EOMs intact bilaterally Resp Effort & Inspection: normal respiratory effort Auscultation: clear to auscultation bilaterally Cardio Rate: regular rate Rhythm: regular rhythm Heart sounds: S1 normal heart sound present, S2 normal heart sound present, no gallops, no murmurs and no rubs GI Palpation (GI): No Abdominal aortic bruit present, Soft to palpation, nontender, No hepatosplenomegaly present and No Rebound tenderness present Auscultation: normal bowel sounds General: Yes no CVA tenderness Back/Spine/Pelvis Back: no CVA tenderness Cervical Spine: cervical ROM normal and No Cervical spine tenderness Thoracic/Lumbar Spine: thoraco-lumbar ROM normal, No pain with thoraco-lumbar ROM, No thoracic spinal tenderness and No lumbar spinal tenderness Extrem General: Yes normal to inspection, No edema and No calf tenderness Skin General: warm and dry. Normal skin color. Normal skin turgor Neuro General: patient oriented x3, gait normal and no focal neuro deficit Cranial nerves: Yes Equal, round and reactive pupils present Cognition (Neuro): normal cognition Gait exam (Neuro): Normal gait present Sensory Exam: No Sensory deficit (Neuro) Psych Appearance: grossly normal Affect: normal affect Attitude: cooperative Thought process: Normal thought process present Assessment and Plan Assessment & Plan (1) Anxiety and depression: Code(s): F41.9 - Anxiety disorder, unspecified; F32.A - Depression, unspecified Plan: Reports increased energy and controlled anxiety and depression symptoms PHQ-9 and AASHISH-7 scores revealed moderate depression and mild anxiety respectively Continue to take Effexor as prescribed Routine exercise encouraged Follow-up in 4 weeks or return sooner with worsening or new symptoms Verbalized understanding and agreed with treatment plan (2) Poor sleep: Code(s): Z72.820 - Sleep deprivation Plan: Reports poor night sleep and frequent awakenings Trazodone ordered. Take as prescribed Follow-up in 1 month or return sooner with worsening or new symptoms Verbalized understanding and agreed with treatment plan Medications: New trazodone 50 mg PO BEDTIME 30 days PRN 30 tabs 1RF sleep Coding Level of Care Code Est Pt Level 3 (23723) Diagnoses Anxiety and depression F41.9; F32.A Poor sleep Z72.820 Additional Codes AASHISH-7 Assessment Billing - AASHISH-7 Assessment Tool: AASHISH-7 Assessment 87501 ([id number])
== END 2023-05-10 16:24 | disposition home or self-care (01) ==
PROVIDERS: PCP Nurse Practitioner Family; Visit Provider Nurse Practitioner Family
DX: F41.9 Anxiety disorder, unspecified (principal); F32.A Depression, unspecified; Z72.820 Sleep deprivation
CPT/HCPCS: 99213

== ENCOUNTER 2023-06-07 13:07 | Outpatient (AMB) | payer MEDICARE, SELFPAY ==
--- NOTE | 2023-06-07 13:12 | A.OFFPC_ITS ---
Vital Signs 06/07/23 13:13 Height 5 ft 4.25 in Weight 224 lb 6 oz BMI 38.2 BP 144/76 H Blood Pressure Location Rt brachial Position Sitting Respiration 13 Pulse 114 H Pulse Source Pulse Oximeter Temp 97.6 F Temp Source Temporal Artery Scan Pulse Oximetry (%) 99 Oxygen Delivery Method Room Air Intake Visit Reasons: anxiety, depression [employer] Administrator Required: No Accompanied by: Self / Same As Patient Allergies codeine Allergy (Severe, Verified 06/07/23 13:31) Codeine Sulfate- HIVES latex Adverse Reaction (Mild, Verified 06/07/23 13:31) Rash Medication List - Last Reconciled 06/07/23 by Francisco Schrader CNP amlodipine 5 mg PO DAILY atenolol 50 mg PO DAILY cetirizine (Zyrtec) 10 mg PO DAILY [flaxseed oil ] fluticasone propionate 50 mcg/actuation (Allergy Relief (fluticasone)) 2 sprays intranasal DAILY PRN hydrochlorothiazide 25 mg PO DAILY [Ocuvite ] rosuvastatin 20 mg PO BEDTIME trazodone 50 mg PO BEDTIME PRN 30 days venlafaxine ER (Effexor XR) 75 mg PO QAM 30 days [Vitamin D3 2,000 PO DAILY] Tobacco use date assessed: 04/26/23 Fall risk assessment: 2 + Falls in past year Last assessed Fall Risk: 06/07/23 Dental Screening Dental Screen Date: 06/07/23 Did you have a dental visit in the last 12 months?: No Did you have a dental problem in the last 6 months where you did not have access to dental care?: No Was dental information given to patient?: Patient has dentist HPI HPI Comments History of Present Illness Details 72-year-old female presents for anxiety, depression, and poor sleep follow-up She admits to taking her medications as prescribed without significant adverse reactions. She sometimes wakes up drowsy since starting trazodone She notes that I feel much better and have a lot more energy. She started reading and enjoys it like before. She states that her sleep is improving, less interrupted No acute symptoms at this time [facility] Medical History Obesity History of benign schwannoma Arthritis Back pain Diverticulitis Diabetes mellitus type 2, diet-controlled Depression Elevated cholesterol Hypertension Surgical History History of surgery History of colonoscopy History of bowel resection Family History Family/Other Chronic mental illness Son In good health Son In good health Daughter In good health Lupus Mother Alzheimer disease Other Mental health disorder Social History Housing: House Patient Tobacco Use Status: Former Tobacco user e-Cigarette/Vaping Use: Never Used Second Hand Smoke Exposure: No service: No Current occupational status: retired Current occupational exposures/hazards: No Cognitive needs: No Hearing needs: Yes Vision needs: Yes Questionnaire PHQ-9 Over the last 2 weeks, how often have you been bothered by any of the following problems? 1. Little interest or pleasure in doing things: not at all 2. Feeling down, depressed, or hopeless: not at all 3. Trouble falling or staying asleep, or sleeping too much: several days 4. Feeling tired or having little energy: several days 5. Poor appetite or overeating: several days 6. Feeling bad about yourself - or that you are a failure or have let yourself or your family down: not at all 7. Trouble concentrating on things, such as reading the newspaper or watching television: not at all 8. Moving or speaking so slowly that other people could have noticed. Or the opposite - being so fidgety or restless that you have been moving around a lot more than usual: not at all 9. Thoughts that you would be better off or of hurting yourself in some way: not at all Total score: 3 Depression Screening Interpretation: Negative Depression Screening Done: Yes 06818 - PHQ-9 Billing: Yes Source: Developed by Drs. William Haji, Kristy Baker, Jeffrey Duran and colleagues, with an educational aranza from [employer]. Thrive Questionnaire Date Thrive assessed: 04/26/23 AASHISH-7 AMB Questionnaire AASHISH-7 Date AASHISH - 7 assessed: 06/07/23 Feeling nervous, anxious, or on edge: 1 = Several days Not being able to stop or control worryin = Several days Worrying too much about different things: 1 = Several days Trouble relaxin = Not at all Being so restless that it is hard to sit still: 0 = Not at all Becoming easily annoyed or irritable: 1 = Several days Feeling afraid as if something awful might happen: 0 = Not at all Total AASHISH-7 score (0-4 normal; 5-9 mild; 10-14 moderate; 15-21 severe): 4 Source: Developed by Drs. William Haji, Kristy Baker, Jeffrey Duran and colleagues, with an educational aranza from [employer]. AASHISH-7 Assessment Billing AASHISH-7 Assessment Tool: AASHISH-7 Assessment 96862 Review of Systems Const Details: Const Denies chills, Denies fatigue, Denies fever(s), Denies headache(s) and Denies weakness ENT Denies dizziness and Denies headache(s) Card Denies chest pain, Denies lightheadedness, Denies dyspnea and Denies other (Palpitations) Resp Denies cough, Denies dyspnea, Denies wheezing and Denies other ( shortness of breath) GI Denies abdominal pain, Denies melena, Denies hematochezia, Denies change in bowel habits, Denies dyspepsia and Denies nausea Denies hematuria and Denies dysuria Musc Denies abnormal gait, Denies myalgias, Denies arthralgias, Denies numbness and Denies tingling Skin/Breast Denies rash, Denies unusual bruising and Denies wounds Neuro Denies abnormal gait, Denies dizziness, Denies headache(s), Denies memory loss, Denies numbness, Denies Sensory deficit (Neuro), Denies tingling and Denies weakness Psych Denies anxiety, Denies depression, Denies memory loss Endo Denies cold intolerance, Denies fatigue, Denies heat intolerance, Denies polydipsia and Denies polyuria Aller/Immun Denies wheezing Physical exam (Primary Care) Vital Signs: Last Vital Signs Temp 97.6 F 06/07/23 13:13 Pulse 114 H 06/07/23 13:13 Resp 13 06/07/23 13:13 BP 144/76 H 06/07/23 13:13 Pulse Ox 99 06/07/23 13:13 Oxygen Delivery Method Room Air 06/07/23 13:13 BMI result Body Mass Index 38.2 Tobacco/Smoking Status: Tobacco use Status Tobacco use date assessed 04/26/23 06/07/23 13:23 Patient Tobacco Use Status Former Tobacco user 06/07/23 13:23 e-Cigarette/Vaping Use Never Used 06/07/23 13:23 PHQ-9: PHQ-9 Score PHQ-9: Total score 3 06/07/23 13:23 Depression Screening Interpretation: Negative Thrive Assessment: Date of Thrive Assessment Date Thrive assessed 04/26/23 06/07/23 13:23 Const Other: General: no acute distress and well developed Nutritional Appearance: well nourished Orientation/consciousness: patient oriented x3 HENMT Head: Yes normocephalic and Yes atraumatic Eyes General: appearance normal, both eyes and all related structures Pupils: Equal, round and reactive pupils present EOM: EOMs intact bilaterally Resp Effort & Inspection: normal respiratory effort Auscultation: clear to auscultation bilaterally Cardio Rate: regular rate Rhythm: regular rhythm Heart sounds: S1 normal heart sound present, S2 normal heart sound present, no gallops, no murmurs and no rubs GI Palpation (GI): No Abdominal aortic bruit present, Soft to palpation, nontender, No hepatosplenomegaly present and No Rebound tenderness present Auscultation: normal bowel sounds General: Yes no CVA tenderness Back/Spine/Pelvis Back: no CVA tenderness Cervical Spine: cervical ROM normal and No Cervical spine tenderness Thoracic/Lumbar Spine: thoraco-lumbar ROM normal, No pain with thoraco-lumbar ROM, No thoracic spinal tenderness and No lumbar spinal tenderness Extrem General: Yes normal to inspection, No edema and No calf tenderness Skin General: warm and dry. Normal skin color. Normal skin turgor Neuro General: patient oriented x3, gait normal and no focal neuro deficit Cranial nerves: Yes Equal, round and reactive pupils present Cognition (Neuro): normal cognition Gait exam (Neuro): Normal gait present Sensory Exam: No Sensory deficit (Neuro) Psych Appearance: grossly normal Affect: normal affect Attitude: cooperative Thought process: Normal thought process present Assessment and Plan Assessment & Plan (1) Anxiety and depression: Code(s): F41.9 - Anxiety disorder, unspecified; F32.A - Depression, unspecified Plan: Reports significant improvement of anxiety and depression symptoms and sleep PHQ-9 and AASHISH-7 scores are normal Continue to take venlafaxine and trazodone as prescribed. May break trazodone in half intake with increased sedation Routine exercise encouraged Follow-up in 1 month for an extended physical exam or return sooner with worsening or new symptoms Verbalized understanding and agreed with treatment plan (2) Poor sleep: Code(s): Z72.820 - Sleep deprivation Plan: As above Orders: Orders Complete Blood Count Auto Diff Today Z00.00 - Encounter for general adult medical examination without abnormal findings Lipid Panel Today Z00.00 - Encounter for general adult medical examination without abnormal findings Comprehensive [place]. Panel Fast Today Z00.00 - Encounter for general adult medical examination without abnormal findings TSH reflex Free T4 Today Z00.00 - Encounter for general adult medical examination without abnormal findings UA CC w/rflx Micro + Cult Today Z00.00 - Encounter for general adult medical examination without abnormal findings Coding Level of Care Code Est Pt Level 3 (62261) Diagnoses Anxiety and depression F41.9; F32.A Poor sleep Z72.820 Additional Codes AASHISH-7 Assessment Billing - AASHISH-7 Assessment Tool: AASHISH-7 Assessment 41809 ([id number])
[2023-06-07 13:13] VITALS: BP 144/76; PULSE 114; RESP 13; TEMP 36.4; O2SAT 99; BMI 38.2
== END 2023-06-07 13:43 | disposition home or self-care (01) ==
PROVIDERS: PCP Nurse Practitioner Family; Visit Provider Nurse Practitioner Family
DX: F41.9 Anxiety disorder, unspecified (principal); F32.A Depression, unspecified; Z72.820 Sleep deprivation
CPT/HCPCS: 99213

== ENCOUNTER 2023-07-09 07:32 | Outpatient (REF) | payer MEDICARE, SELFPAY ==
[2023-07-09 07:41] LABS: MANUAL DIFF FLAG NO
[2023-07-09 08:04] LABS: Basophils Percent Auto 0.6 % (0-2); Eosinophils Absolute Auto 0.3 X10*3/uL (0.0-0.4); Hematocrit 43.2 % (37.0-47.0); Hemoglobin 14.3 g/dl (12.0-16.0); Imm Gran Abs Auto 0.02 X10*3/uL (0.00-0.03); Imm Gran Pct Auto 0.3 % (0.0-0.4); Lymphocytes Absolute Auto 2.8 X10*3/uL (1.2-4.9); Lymphocytes Percent Auto 45.1 % (20-40); Mean Corpuscular HGB Conc 33.1 g/dl (31.0-35.0); Mean Corpuscular Hemoglobin 29.2 pg (27.0-33.0); Mean Corpuscular Volume 88.2 fL (80.0-98.0); Mean Platelet Volume 9.8 fL (9.4-12.3); Monocytes Absolute Auto 0.5 X10*3/uL (0.1-1.2); Monocytes Percent Auto 7.5 % (2-11); Neutrophils Absolute Auto 2.6 x10*3/uL (2.0-8.3); Neutrophils Percent Auto 42.5 % (45-73); Platelet Count 290 X10*3/uL (160-400); Red Cell Distribution Width 13.1 % (11.0-16.0); White Blood Count 6.2 X10*3/uL (4.8-10.8)
[2023-07-09 08:05] LABS: Appearance Urine Clear; Color Urine Dark Yellow; Glucose Urine UA Negative (Negative); Leukocyte Esterase Urine Trace (Negative); Nitrite Urine Negative (Negative); PH 5.5 (5.0-9.0); UMIC TRIGGER UACC YES; Urine Blood Negative (Negative); Urine Ketones Negative (Negative); Urine Protein Negative (Neg-Trace)
[2023-07-09 08:07] LABS: Bacteria Urine None Seen (None Seen); RBC Urine 0-2 /HPF (0-2); WBC Urine 0-5 /HPF (0-5)
[2023-07-09 08:47] LABS: Alanine Aminotransferase 34 U/L (0-31); Albumin Level 4.3 g/dL (3.5-5.0); Alkaline Phosphatase 59 U/L (39-117); Anion Gap 13 (12-20); Aspartate Amino Transferase 47 U/L (5-31); Bilirubin Total 0.5 mg/dL (0.0-1.0); Blood Urea Nitrogen 10 mg/dL (9-16); Calcium 9.9 mg/dL (8.4-10.2); Carbon Dioxide 28 mmol/L (22-29); Chloride 103 mmol/L (96-108); Cholesterol 127 mg/dL (<200); Estimated Glomerular Filt Rate > 60; Glucose Fasting 132 mg/dL (60-99); HDL Cholesterol 31 mg/dL (>40); LDL Cholesterol Calculated 66 mg/dL (<100); Potassium 3.7 mmol/L (3.3-5.1); Sodium 140 mmol/L (135-145); Total Protein 7.3 g/dL (6.5-8.0); Triglycerides 154 mg/dL (<150)
[2023-07-09 09:03] LABS: TSH reflex Free T4 1.25 uIU/mL (0.32-4.0)
== END 2023-07-09 07:33 | disposition home or self-care (01) ==
LOC: HO.LAB 07:32
PROVIDERS: PCP Nurse Practitioner Family; Visit Provider Nurse Practitioner Family
DX: Z00.00 Encounter for general adult medical examination without abnormal findings (principal); Z13.220 Encounter for screening for lipoid disorders; Z13.29 Encounter for screening for other suspected endocrine disorder
CPT/HCPCS: 36415; 80053; 80061; 81001; 81003; 84443; 85025

== ENCOUNTER 2023-07-26 10:27 | Outpatient (AMB) | payer MEDICARE, SELFPAY ==
[2023-07-26 10:33] VITALS: BP 126/70; PULSE 62; RESP 14; TEMP 36.4; O2SAT 99; BMI 37.4
--- NOTE | 2023-07-26 10:33 | MHC.PC.OV ---
Vital Signs 07/26/23 10:33 Height 5 ft 4.5 in Weight 221 lb 6 oz BMI 37.4 BP 126/70 Blood Pressure Location Rt brachial Position Sitting Respiration 14 Pulse 62 Pulse Source Pulse Oximeter Temp 97.5 F Temp Source Temporal Artery Scan Pulse Oximetry (%) 99 Oxygen Delivery Method Room Air Intake Visit Reasons: CPE - see comments Oven Worker Required: No Accompanied by: Self / Same As Patient Allergies codeine Allergy (Severe, Verified 07/26/23 10:58) Codeine Sulfate- HIVES Seasonal Allergies Allergy (Intermediate, Verified 07/26/23 10:58) Runny Nose latex Adverse Reaction (Mild, Verified 07/26/23 10:58) Rash Medication List - Last Reconciled 07/26/23 by Francisco Schrader CNP amlodipine 5 mg PO DAILY atenolol 50 mg PO DAILY cetirizine (Zyrtec) 10 mg PO DAILY [flaxseed oil ] fluticasone propionate 50 mcg/actuation (Allergy Relief (fluticasone)) 2 sprays intranasal DAILY PRN hydrochlorothiazide 25 mg PO DAILY [Ocuvite ] rosuvastatin 20 mg PO BEDTIME trazodone 50 mg PO BEDTIME PRN 30 days venlafaxine ER (Effexor XR) 75 mg PO QAM 30 days [Vitamin D3 2,000 PO DAILY] Tobacco use date assessed: 07/26/23 Fall risk assessment: No Falls in past year Last assessed Fall Risk: 07/26/23 Dental Screening Dental Screen Date: 07/26/23 Did you have a dental visit in the last 12 months?: No Did you have a dental problem in the last 6 months where you did not have access to dental care?: No Was dental information given to patient?: Patient has dentist HPI HPI Comments History of Present Illness Details 72-year-old female presents for an extended physical exam She has history of hypertension, hyperlipidemia, type 2 diabetes (diet controlled), obesity, anxiety, and depression She admits to taking her medications as prescribed without adverse reactions She reports controlled anxiety and depression symptoms She notes that she generally makes healthy dietary choices. She does not exercise She offers no complaints and denies acute symptoms at this time Nonsmoker, nondrinker, no recreational drug use Last mammogram was with [facility] in 02/02/22: normal Last colonoscopy was with [facility] in 03/06/2020: polyps She notes that her last DEXA scan: Several years ago: osteopenia She notes that her last Pap smear test was 5 years ago: normal. She was told she no longer require pap smear test. She does not want to be tested at this time She has not seen a dentist in over a year She is up-to-date on flu vaccine She is up-to-date on pneumonia and shingles vaccines [facility] Medical History Obesity History of benign schwannoma Arthritis Back pain Diverticulitis Diabetes mellitus type 2, diet-controlled Depression Elevated cholesterol Hypertension Surgical History History of surgery History of colonoscopy History of bowel resection Family History Family/Other Chronic mental illness Son In good health Son In good health Daughter In good health Lupus Mother Alzheimer disease Sister Colon cancer Other Mental health disorder Social History Household Members: Family Both parents involved: No Caregiver staying overnight: No Housing: House Are you a primary career development director to a significant other at home: No Do you presently have visiting nurse or other home services: No 75 years or older and lives alone: No Patient Tobacco Use Status: Former Tobacco user e-Cigarette/Vaping Use: Never Used Second Hand Smoke Exposure: No service: No Current occupational status: retired Current occupational exposures/hazards: No Cognitive needs: No Hearing needs: Yes Vision needs: Yes Questionnaire PHQ-9 Over the last 2 weeks, how often have you been bothered by any of the following problems? 1. Little interest or pleasure in doing things: not at all 2. Feeling down, depressed, or hopeless: not at all 3. Trouble falling or staying asleep, or sleeping too much: nearly every day (STAYING ASLEEP) 4. Feeling tired or having little energy: not at all 5. Poor appetite or overeating: not at all 6. Feeling bad about yourself - or that you are a failure or have let yourself or your family down: not at all 7. Trouble concentrating on things, such as reading the newspaper or watching television: not at all 8. Moving or speaking so slowly that other people could have noticed. Or the opposite - being so fidgety or restless that you have been moving around a lot more than usual: not at all 9. Thoughts that you would be better off or of hurting yourself in some way: not at all Total score: 3 Depression Screening Interpretation: Negative Depression Screening Done: Yes 62336 - PHQ-9 Billing: Yes Source: Developed by Drs. William Haji, Kristy Baker, Jeffrey Duran and colleagues, with an educational aranza from [employer]. Thrive Questionnaire Date Thrive assessed: 07/26/23 I am a: Patient What is your living situation today?: I have a steady place to live Within the past 12 months, did the food you bought not last and you didn't have the money to get more?: Never true Within the past 12 months, did you worry whether your food would run out before you got money to buy more?: Never true Do you have trouble paying for medicines?: No Do you have trouble getting transportation to medical appointments?: No Do you have trouble paying your heating and electricity bill?: No Do you have trouble taking care of your child, family member or friend?: No Do you have trouble with day-to-day activities such as bathing, preparing meals, shopping, managing finances, etc.?: No Are you currently unemployed and looking for a job?: No Are you interested in more education?: No Please select the resources that you would like help with: None Currently or been in a relationship where the following occur: no concerns reported THRIVE Score: 0 AUDIT C Alcohol Use Questionnaire (AUDIT-C) 1. How often do you have a drink containing alcohol?: Never 3. How often do you have six or more drinks on one occasion?: Never Total Score: 0 AASHISH-7 AMB Questionnaire AASHISH-7 Date AASHISH - 7 assessed: 06/07/23 Feeling nervous, anxious, or on edge: 1 = Several days Not being able to stop or control worryin = Not at all Worrying too much about different things: 1 = Several days Trouble relaxin = Several days Being so restless that it is hard to sit still: 0 = Not at all Becoming easily annoyed or irritable: 0 = Not at all Feeling afraid as if something awful might happen: 0 = Not at all Total AASHISH-7 score (0-4 normal; 5-9 mild; 10-14 moderate; 15-21 severe): 3 Source: Developed by Drs. William Haji, Kristy Baker, Jeffrey Duran and colleagues, with an educational aranza from [employer]. AASHISH-7 Assessment Billing AASHISH-7 Assessment Tool: AASHISH-7 Assessment 13086 Review of Systems Const Details: Denies chills, Denies fatigue, Denies fever(s), Denies headache(s) and Denies weakness HEENT Denies change in vision, Denies dizziness, Denies headache(s), Denies hearing loss, Denies nasal congestion, Denies sinus pain, Denies sinus pressure and Denies sore throat Card Denies chest pain, Denies lightheadedness, Denies dyspnea and Denies other (palpitations) Resp Denies cough, Denies dyspnea and Denies wheezing GI Denies abdominal pain, Denies melena, Denies hematochezia, Denies change in bowel habits, Denies dyspepsia and Denies nausea Denies hematuria and Denies dysuria Musc Denies abnormal gait, Denies myalgias, Denies arthralgias, Denies numbness and Denies tingling Skin/Breast Denies rash, Denies unusual bruising and Denies wounds Neuro Denies abnormal gait, Denies dizziness, Denies headache(s), Denies memory loss, Denies numbness, Denies Sensory deficit (Neuro), Denies tingling and Denies weakness Psych Denies anxiety, Denies depression and Denies memory loss Endo Denies cold intolerance, Denies fatigue, Denies heat intolerance, Denies polydipsia and Denies polyuria Thomas/Lymph Denies easy bleeding and Denies easy bruising Aller/Immun Denies wheezing Physical exam (Primary Care) Vital Signs: Last Vital Signs Temp 97.5 F 07/26/23 10:33 Pulse 62 07/26/23 10:33 Resp 14 07/26/23 10:33 BP 126/70 07/26/23 10:33 Pulse Ox 99 07/26/23 10:33 Oxygen Delivery Method Room Air 07/26/23 10:33 BMI result Body Mass Index 37.4 Tobacco/Smoking Status: Tobacco use Status Tobacco use date assessed 07/26/23 07/26/23 10:44 Patient Tobacco Use Status Former Tobacco user 07/26/23 10:44 e-Cigarette/Vaping Use Never Used 07/26/23 10:44 PHQ-9: PHQ-9 Score PHQ-9: Total score 3 07/26/23 10:59 Depression Screening Interpretation: Negative Thrive Assessment: Date of Thrive Assessment Date Thrive assessed 07/26/23 07/26/23 10:47 Currently or been in a relationship where the following occur: no concerns reported Const Other: General: no acute distress, well developed, alert and awake Nutritional Appearance: well nourished Orientation/consciousness: patient oriented x3 HENMT Head: Yes normocephalic and Yes atraumatic Ears: hearing grossly normal bilaterally and TM's normal bilaterally General nose exam: Normal external nose present and Normal nares present Mouth: Normal oral and palatal mucosa present and moist mucous membranes Teeth and gingiva: dentition normal Throat: Yes oropharynx normal Eyes Pupils: Equal, round and reactive pupils present and Pupil accommodation reflex normal EOM: EOMs intact bilaterally Neck Neck: Yes normal visual inspection, Yes no lymphadenopathy and Yes trachea midline Thyroid: Thyroid normal Carotids: no bruits Lymphatic: no lymphadenopathy noted Chest Chest palpation & inspection: normal inspection of the chest Resp Effort & Inspection: normal respiratory effort Auscultation: clear to auscultation bilaterally Cardio Rate: regular rate Rhythm: regular rhythm Heart sounds: S1 normal heart sound present, S2 normal heart sound present, no gallops, no murmurs and no rubs Bruits: no abdominal aortic bruits and no carotid bruits GI Palpation (GI): No Abdominal aortic bruit present, Soft to palpation, nontender, No hepatosplenomegaly present and No Rebound tenderness present Auscultation: normal bowel sounds General: Yes no CVA tenderness Back/Spine/Pelvis Back: no CVA tenderness Cervical Spine: cervical ROM normal and No Cervical spine tenderness Thoracic/Lumbar Spine: thoraco-lumbar ROM normal, No pain with thoraco-lumbar ROM, No thoracic spinal tenderness and No lumbar spinal tenderness Skin General: warm and dry. Normal skin color. Normal skin turgor Lesions: no lesions Rashes: no rashes Trauma: no lacerations or abrasions Wounds: no wounds Nails: normal Neuro General: patient oriented x3, gait normal and CN's II-XI intact bilaterally Cranial nerves: Yes Equal, round and reactive pupils present Cognition (Neuro): normal cognition Gait exam (Neuro): Normal gait present Motor exam (neuro): 5/5 motor strength present throughout Sensory Exam: No Sensory deficit (Neuro) Deep tendon reflexes (DTR's): Right patellar reflex intensity grade: 2+ and Left patellar reflex intensity grade: 2+ Extrem General: Yes normal to inspection, No edema and No calf tenderness Psych Appearance: grossly normal Affect: normal affect Attitude: cooperative Thought process: Normal thought process present Results AMB Hemoglobin A1c AMB Hemoglobin A1c 7.9 % Last Edit by JESUS ALBERTO Poe on 07/26/23 10:59 Results Reviewed Results Reviewed: Laboratory Last Values Hgb A1c (Clinic) 7.9 % (4.0-6.0) H 07/26/23 10:52 Assessment and Plan Assessment & Plan (1) Normal physical exam: Code(s): Z00.00 - Encounter for general adult medical examination without abnormal findings Plan: No significant physical restrictions limitations noted Continue current treatment regimen Healthy diet and routine exercise encouraged Encouraged to establish with a dentist for routine dental care Advised to get fasting lipid panel and lipid panel blood work done before hes next visit Follow-up in 3 months for hypertension, hyperlipidemia, diabetes, anxiety, and depression Return sooner with symptoms or concerns Verbalized understanding and agreed with treatment plan (2) Hypertension: Code(s): I10 - Essential (primary) hypertension Plan: Blood pressure is 126/70, within goal of less than 130/80 Continue current treatment regimen Low-sodium diet encouraged Follow-up in 3 months Verbalized understanding and agreed with treatment plan (3) Type 2 diabetes mellitus: Code(s): E11.9 - Type 2 diabetes mellitus without complications Plan: She has history of diabetes but has not been on medication for awhile Recent A1c is 7.9%, above goal of less than 7.0%. Previous A1c almost a year ago was 5.8% Metformin 500 mg twice daily ordered. Advised to take as prescribed. Instructed on the risks, benefits, and potential adverse reactions of the medication ADA diet and routine exercise encouraged Follow-up in 3 months Verbalized understanding and agreed with treatment plan (4) Anxiety and depression: Code(s): F41.9 - Anxiety disorder, unspecified; F32.A - Depression, unspecified Plan: Controlled anxiety and depression symptoms PHQ-9 and AASHISH-7 scores are normal Continue current treatment regimen Routine exercise encouraged Follow-up in 3 months or return sooner with symptoms or concerns Verbalized understanding and agreed with treatment plan (5) BMI 37.0-37.9, adult: Code(s): Z68.37 - Body mass index [BMI] 37.0-37.9, adult Plan: She weighs 221 lb, BMI is 37.4 Declines referral to dietitian or weight management and notes that she would start making healthy dietary changes Healthy diet and routine exercise encouraged She may inform her PCP if she changes her mind on referral to dietitian or with management Follow-up with symptoms or concerns Verbalized understanding and agreed with treatment plan (6) Transaminitis: Code(s): R74.01 - Elevation of levels of liver transaminase levels Plan: Recent AST and ALT levels elevated, 47 and 34 respectively No abdominal symptoms Likely hepatic steatosis Healthy diet and routine exercise encouraged Advised to get liver panel blood work done before her next visit Verbalized understanding and agreed with treatment plan (7) Elevated cholesterol: Code(s): E78.00 - Pure hypercholesterolemia, unspecified Plan: Recent triglycerides level is slightly elevated, 154, HDL is low, 31 Continue to take rosuvastatin as prescribed She notes that she consumes significant amount of cheese. Advised to limit foods high in saturated fat and avoid foods high in trans fat Routine exercise encouraged Advised to get lipid panel blood work done before next visit Follow-up in 3 months Verbalized understanding and agreed with treatment (8) History of osteopenia: Code(s): Z87.39 - Personal history of other diseases of the musculoskeletal system and connective tissue Plan: Last DEXA scan: Several years ago: osteopenia DEXA scan ordered Continue to take vitamin D3 2000 units daily (9) Colon cancer screening: Code(s): Z12.11 - Encounter for screening for malignant neoplasm of colon Plan: Last colonoscopy was with [facility] in 03/06/2020: polyps Referred to [facility] Gastroenterology for a colonoscopy (10) Breast cancer screening by mammogram: Code(s): Z12.31 - Encounter for screening mammogram for malignant neoplasm of breast Plan: Last mammogram was with [facility] in 02/02/22: normal Mammogram ordered Orders: Orders AMB Hemoglobin A1c Today E11.9 - Type 2 diabetes mellitus without complications XR DEXA axial skeleton Today Z87.39 - Personal history of other diseases of the musculoskeletal system and connective tissue Lipid Panel 3 Months E78.00 - Pure hypercholesterolemia, unspecified MM screening mammo BI Today Z12.31 - Encounter for screening mammogram for malignant neoplasm of breast Liver Panel 3 Months R74.01 - Elevation of levels of liver transaminase levels Microalbumin, Random (w Creat) Today E11.9 - Type 2 diabetes mellitus without complications Referrals Gastroenterology Referral Z12.11 - Encounter for screening for malignant neoplasm of colon Medications: New metformin 500 mg PO BIDWMEAL 60 tabs 3RF 30 days Coding Level of Care Code Est Pt Level 4 (52166) Est Pt Prev Care >65y(75752) Diagnoses Normal physical exam Z00.00 Hypertension I10 Type 2 diabetes mellitus E11.9 Anxiety and depression F41.9; F32.A BMI 37.0-37.9, adult Z68.37 Transaminitis R74.01 Elevated cholesterol E78.00 History of osteopenia Z87.39 Colon cancer screening Z12.11 Breast cancer screening by mammogram Z12.31 Additional Codes AASHISH-7 Assessment Billing - AASHISH-7 Assessment Tool: AASHISH-7 Assessment [id number] ([id number])
== END 2023-07-26 11:26 | disposition home or self-care (01) ==
PROVIDERS: PCP Nurse Practitioner Family; Visit Provider Nurse Practitioner Family
DX: Z00.00 Encounter for general adult medical examination without abnormal findings (principal); I10 Essential (primary) hypertension; E11.9 Type 2 diabetes mellitus without complications; F41.9 Anxiety disorder, unspecified; F32.A Depression, unspecified; Z68.37 Body mass index [BMI] 37.0-37.9, adult; R74.01 Elevation of levels of liver transaminase levels; E78.00 Pure hypercholesterolemia, unspecified; Z87.39 Personal history of other diseases of the musculoskeletal system and connective tissue; Z12.11 Encounter for screening for malignant neoplasm of colon; Z12.31 Encounter for screening mammogram for malignant neoplasm of breast
CPT/HCPCS: 83036; 99214; 99397

== ENCOUNTER 2023-08-30 10:28 | Outpatient (REF) | payer MEDICARE, SELFPAY ==
--- NOTE | ~2023-08-30 | MM_ITS ---
EXAMINATION: BONE DENSITOMETRY CLINICAL INDICATION: Personal history of other diseases of the musculoskeletal system. COMPARISON: This is the patient's baseline examination. TECHNIQUE: Using a [employer] DXA System (software version: 13.1) manufactured by [employer], dual-energy x-ray absorptiometry was performed of the lumbar spine and left hip. The images are of good technical quality. Summary results are attached. FINDINGS: LEFT FEMUR, NECK: BMD 0.885 g/cm2, Z-score 0.0, T-score -1.1, osteopenia. LEFT FEMUR, TOTAL: BMD 0.972 g/cm2, Z-score 0.5, T-score -0.3, normal. AP SPINE L1-L2 (excluding L3 and L4): The data of L1-L4 has been changed to exclude the L3 and L4 vertebral bodies, because degenerative sclerosis at these levels may cause overestimation of lumbar spine density. BMD 0.778 g/cm2, Z-score -2.5, T-score -3.2, osteoporosis. IDENTIFIED RISK FACTORS: Low calcium intake, alcohol use, menopause, thiazide, secondary osteoporosis (intestinal or bowel disease, not IBS). HISTORY OF FRACTURE: None listed. MEDICATIONS: Vitamin D. MM/XR DEXA axial skeleton IMPRESSION: 1. DIAGNOSIS: Osteoporosis based on the lowest T-score value of -3.2 in the lumbar spine applying World Health Organization criteria. 2. 10-YEAR FRACTURE RISK PREDICTION, FRAX: According to the guidelines, FRAX calculation should only be performed on patients in the osteopenia bone density category. Therefore, FRAX was not performed on this patient. 3. Treatment Recommendations: NOF guidelines recommend consideration for treatment in postmenopausal women and men age 50 and older presenting with the following: -A hip or vertebral (clinical or morphometric) fracture. -T-score less than or equal to -2.5 at the femoral neck or spine after appropriate evaluation to exclude secondary causes. -Low bone mass at the hip or spine and a 10-year fracture probability by FRAX of greater than or equal to 3% for hip fracture or greater than or equal to 20% for major osteoporotic fracture based on the [place] adapted WHO algorithm. 4. Other Recommendations: All treatment decisions require clinical judgment and consideration of individual patient factors, including patient preferences, comorbidities, previous drug use, risk factors not captured in the FRAX model (e.g. frailty, falls, vitamin D deficiency, increased bone turnover, interval significant decline in bone density) and possible under or overestimation of fracture risk by FRAX. Additional medical evaluation for secondary cause of low bone mineral density may be appropriate. FUTURE SCAN RECOMMENDATION: People with diagnosed cases of osteoporosis or at high risk for fracture should have regular bone mineral density tests. For patients eligible for Medicare, routine testing is allowed once every 2 years. The testing frequency can be increased to one year for patients who have rapidly progressing disease, those who are receiving or discontinuing medical therapy to restore bone mass, or have additional risk factors.
== END 2023-08-30 10:29 | disposition home or self-care (01) ==
LOC: HO.MAMMO 10:28
PROVIDERS: PCP Nurse Practitioner Family
DX: Z12.31 Encounter for screening mammogram for malignant neoplasm of breast (principal); Z13.820 Encounter for screening for osteoporosis; Z78.0 Asymptomatic menopausal state; Z87.39 Personal history of other diseases of the musculoskeletal system and connective tissue
CPT/HCPCS: 77063; 77067; 77080

== ENCOUNTER → 2023-08-30 11:00 | Outpatient (BNV) | payer MEDICARE, SELFPAY | PROVIDERS: PCP Nurse Practitioner Family; Visit Provider Radiology Diagnostic Radiology | DX: Z12.31 Encounter for screening mammogram for malignant neoplasm of breast (principal) | CPT/HCPCS: 77063; 77067 ==

== ENCOUNTER 2023-09-24 07:03 | Outpatient (REF) | payer MEDICARE, SELFPAY ==
[2023-09-24 09:14] LABS: Appearance Urine Clear; Color Urine Yellow; Glucose Urine UA Negative (Negative); Leukocyte Esterase Urine Negative (Negative); Nitrite Urine Negative (Negative); Urine Blood Negative (Negative); Urine Ketones Negative (Negative); Urine Protein Negative (Neg-Trace)
[2023-09-24 09:55] LABS: Alanine Aminotransferase 18 U/L (0-31); Albumin Level 4.4 g/dL (3.5-5.0); Alkaline Phosphatase 59 U/L (39-117); Aspartate Amino Transferase 26 U/L (5-31); Bilirubin Direct 0.1 mg/dL (0.0-0.5); Bilirubin Total 0.3 mg/dL (0.0-1.0); Cholesterol 120 mg/dL (<200); HDL Cholesterol 31 mg/dL (>40); LDL Cholesterol Calculated 64 mg/dL (<100); Total Protein 7.3 g/dL (6.5-8.0); Triglycerides 125 mg/dL (<150)
[2023-09-24 09:56] LABS: Creatinine Urine 146.93 mg/dL; Microalbum/Creatinine Ratio Ur 5.4 ug/mg cr (<30)
== END 2023-09-24 07:04 | disposition home or self-care (01) ==
LOC: HO.LAB 07:03
PROVIDERS: PCP Nurse Practitioner Family; Visit Provider Nurse Practitioner Family
DX: Z00.00 Encounter for general adult medical examination without abnormal findings (principal); R74.01 Elevation of levels of liver transaminase levels; E11.9 Type 2 diabetes mellitus without complications; E78.00 Pure hypercholesterolemia, unspecified
CPT/HCPCS: 36415; 80061; 80076; 81003; 82043; 82570

== ENCOUNTER 2023-10-03 08:47 | Outpatient (AMB) | payer MEDICARE, SELFPAY ==
--- NOTE | 2023-10-03 08:49 | MHC.PC.OV ---
Vital Signs 10/03/23 08:52 10/03/23 09:21 Height 5 ft 4 in Weight 199 lb 4 oz BMI 34.2 BP 128/58 L 120/70 Blood Pressure Location Lt brachial Lt brachial Position Sitting Sitting Respiration 12 Pulse 77 Pulse Source Pulse Oximeter Temp 97.1 F Temp Source Temporal Artery Scan Pulse Oximetry (%) 98 Oxygen Delivery Method Room Air Intake Visit Reasons: 3 mos HTN, HLD, DM - see comments Intake Note: patient here for follow up and blood work results. Is last menstrual period known: No Post menopausal: No Patient : No Allergies codeine Allergy (Severe, Verified 10/03/23 09:15) Codeine Sulfate- HIVES Seasonal Allergies Allergy (Intermediate, Verified 10/03/23 09:15) Runny Nose latex Adverse Reaction (Mild, Verified 10/03/23 09:15) Rash Medication List - Last Reconciled 10/03/23 by Francisco Schrader CNP amlodipine 5 mg PO DAILY atenolol 50 mg PO DAILY cetirizine (Zyrtec) 10 mg PO DAILY [flaxseed oil ] fluticasone propionate 50 mcg/actuation (Allergy Relief (fluticasone)) 2 sprays intranasal DAILY PRN hydrochlorothiazide 25 mg PO DAILY metformin 500 mg PO BIDWMEAL 30 days [Ocuvite ] rosuvastatin 20 mg PO BEDTIME trazodone 50 mg PO BEDTIME PRN 30 days venlafaxine ER (Effexor XR) 75 mg PO QAM 30 days [Vitamin D3 2,000 PO DAILY] Tobacco use date assessed: 07/26/23 Fall risk assessment: No Falls in past year Last assessed Fall Risk: 10/03/23 Dental Screening Dental Screen Date: 07/26/23 HPI HPI Comments History of Present Illness Details 72-year-old female presents for hypertension, hyperlipidemia, anxiety, and depression follow-up She admits to taking her medications as prescribed without adverse reactions She reports controlled anxiety and depressive symptoms she states that she has been making healthy dietary changes, exercising, and generally sleeps well. She lost about 20 lb since her last visit She offers no complaints and denies acute symptoms at this time [facility] Medical History (Reviewed 07/26/23 @ 10:42 by Loretta Clarke [facility] Obesity History of benign schwannoma Arthritis Back pain Diverticulitis Diabetes mellitus type 2, diet-controlled Depression Elevated cholesterol Hypertension Surgical History History of surgery History of colonoscopy History of bowel resection Family History Family/Other Chronic mental illness Son In good health Son In good health Daughter In good health Lupus Mother Alzheimer disease Sister Colon cancer Other Mental health disorder Social History Household Members: Family Both parents involved: No Caregiver staying overnight: No Housing: House Are you a primary behavioral health care manager to a significant other at home: No Do you presently have visiting nurse or other home services: No 75 years or older and lives alone: No Patient Tobacco Use Status: Former Tobacco user e-Cigarette/Vaping Use: Never Used Second Hand Smoke Exposure: No service: No Current occupational status: retired Current occupational exposures/hazards: No Cognitive needs: No Hearing needs: Yes Vision needs: Yes Questionnaire PHQ-9 Over the last 2 weeks, how often have you been bothered by any of the following problems? 1. Little interest or pleasure in doing things: several days 2. Feeling down, depressed, or hopeless: not at all 3. Trouble falling or staying asleep, or sleeping too much: several days 4. Feeling tired or having little energy: several days 5. Poor appetite or overeating: not at all 6. Feeling bad about yourself - or that you are a failure or have let yourself or your family down: not at all 7. Trouble concentrating on things, such as reading the newspaper or watching television: several days 8. Moving or speaking so slowly that other people could have noticed. Or the opposite - being so fidgety or restless that you have been moving around a lot more than usual: not at all 9. Thoughts that you would be better off or of hurting yourself in some way: not at all Total score: 4 Depression Screening Interpretation: Negative Depression Screening Done: Yes 82289 - PHQ-9 Billing: Yes Source: Developed by Drs. William Haji, Kristy Baker, Jeffrey Duran and colleagues, with an educational aranza from [employer]. Thrive Questionnaire Date Thrive assessed: 07/26/23 AASHISH-7 AMB Questionnaire AASHISH-7 Date AASHISH - 7 assessed: 10/03/23 Feeling nervous, anxious, or on edge: 0 = Not at all Not being able to stop or control worryin = Not at all Worrying too much about different things: 0 = Not at all Trouble relaxin = Not at all Being so restless that it is hard to sit still: 0 = Not at all Becoming easily annoyed or irritable: 0 = Not at all Feeling afraid as if something awful might happen: 0 = Not at all Total AASHISH-7 score (0-4 normal; 5-9 mild; 10-14 moderate; 15-21 severe): 0 Source: Developed by Drs. William Haji, Kristy Baker, Jeffrey Duran and colleagues, with an educational aranza from [employer]. AASHISH-7 Assessment Billing AASHISH-7 Assessment Tool: AASHISH-7 Assessment 70198 Review of Systems Const Details: Const Denies chills, Denies fatigue, Denies fever(s), Denies headache(s) and Denies weakness ENT Denies dizziness and Denies headache(s) Card Denies chest pain, Denies lightheadedness, Denies dyspnea and Denies other (Palpitations) Resp Denies cough, Denies dyspnea, Denies wheezing and Denies other ( shortness of breath) GI Denies abdominal pain, Denies melena, Denies hematochezia, Denies change in bowel habits, Denies dyspepsia and Denies nausea Denies hematuria and Denies dysuria Musc Denies abnormal gait, Denies myalgias, Denies arthralgias, Denies numbness and Denies tingling Skin/Breast Denies rash, Denies unusual bruising and Denies wounds Neuro Denies abnormal gait, Denies dizziness, Denies headache(s), Denies memory loss, Denies numbness, Denies Sensory deficit (Neuro), Denies tingling and Denies weakness Psych Denies anxiety, Denies depression, Denies memory loss Endo Denies cold intolerance, Denies fatigue, Denies heat intolerance, Denies polydipsia and Denies polyuria Aller/Immun Denies wheezing Physical exam (Primary Care) Vital Signs: Last Vital Signs Temp 97.1 F 10/03/23 08:52 Pulse 77 10/03/23 08:52 Resp 12 10/03/23 08:52 BP 128/58 L 10/03/23 08:52 Pulse Ox 98 10/03/23 08:52 Oxygen Delivery Method Room Air 10/03/23 08:52 Tobacco/Smoking Status: Tobacco use Status Tobacco use date assessed 07/26/23 10/03/23 08:51 Patient Tobacco Use Status Former Tobacco user 10/03/23 08:51 e-Cigarette/Vaping Use Never Used 10/03/23 08:51 Depression Screening Interpretation: Negative Thrive Assessment: Date of Thrive Assessment Date Thrive assessed 07/26/23 10/03/23 08:51 Const Other: General: no acute distress and well developed Nutritional Appearance: well nourished Orientation/consciousness: patient oriented x3 HENMT Head: Yes normocephalic and Yes atraumatic Eyes General: appearance normal, both eyes and all related structures Pupils: Equal, round and reactive pupils present EOM: EOMs intact bilaterally Resp Effort & Inspection: normal respiratory effort Auscultation: clear to auscultation bilaterally Cardio Rate: regular rate Rhythm: regular rhythm Heart sounds: S1 normal heart sound present, S2 normal heart sound present, no gallops, no murmurs and no rubs GI Palpation (GI): No Abdominal aortic bruit present, Soft to palpation, nontender, No hepatosplenomegaly present and No Rebound tenderness present Auscultation: normal bowel sounds General: Yes no CVA tenderness Back/Spine/Pelvis Back: no CVA tenderness Cervical Spine: cervical ROM normal and No Cervical spine tenderness Thoracic/Lumbar Spine: thoraco-lumbar ROM normal, No pain with thoraco-lumbar ROM, No thoracic spinal tenderness and No lumbar spinal tenderness Extrem General: Yes normal to inspection, No edema and No calf tenderness Skin General: warm and dry. Normal skin color. Normal skin turgor Neuro General: patient oriented x3, gait normal and no focal neuro deficit Cranial nerves: Yes Equal, round and reactive pupils present Cognition (Neuro): normal cognition Gait exam (Neuro): Normal gait present Sensory Exam: No Sensory deficit (Neuro) Psych Appearance: grossly normal Affect: normal affect Attitude: cooperative Thought process: Normal thought process present Assessment and Plan Assessment & Plan (1) Hypertension: Code(s): I10 - Essential (primary) hypertension Qualifiers: Hypertension type: primary hypertension Qualified Code(s): I10 - Essential (primary) hypertension Plan: Resting blood pressure is 120/70, within goal of less than 130/80 Continue current treatment regimen Low-sodium diet encouraged Will continue to monitor Follow-up in 1 month for diabetes or sooner with symptoms or concerns Verbalized understanding and agreed with treatment plan (2) Elevated cholesterol: Code(s): E78.00 - Pure hypercholesterolemia, unspecified Plan: Recent labs reviewed with the patient Lipid panel is normal except for low HDL, 31 Continue current treatment regimen Encouraged to limit foods high in saturated fat and avoid foods high in trans fat Routine exercise encouraged Will continue to monitor Verbalized understanding and agreed with the plan (3) Anxiety and depression: Code(s): F41.9 - Anxiety disorder, unspecified; F32.A - Depression, unspecified Plan: Reports controlled anxiety and depressive symptoms PHQ-9 and AASHISH-7 scores are normal Continue current treatment regimen Routine exercise encouraged Follow-up with symptoms or concerns Verbalized understanding and agreed with the plan (4) Transaminitis: Code(s): R74.01 - Elevation of levels of liver transaminase levels Plan: Recent liver panel is normal (5) Osteoporosis: Code(s): M81.0 - Age-related osteoporosis without current pathological fracture Plan: Recent imaging reviewed with the patient DEXA scan revealed Osteoporosis based on the lowest T-score value of -3.2 in the lumbar spine Continue to take vitamin D3 2000 units daily Referred to endocrinology Verbalized understanding and agreed with the plan Orders: Referrals Endocrinology Referral M81.0 - Age-related osteoporosis without current pathological fracture Coding Level of Care Code Est Pt Level 4 (77119) Complex EM visit Add On G2211 Diagnoses Primary hypertension I10 Hypertension type: primary hypertension Elevated cholesterol E78.00 Anxiety and depression F41.9; F32.A Transaminitis R74.01 Osteoporosis M81.0 Additional Codes AASHISH-7 Assessment Billing - AASHISH-7 Assessment Tool: AASHISH-7 Assessment [id number] ([id number])
[2023-10-03 08:52] VITALS: BP 128/58; PULSE 77; RESP 12; TEMP 36.2; O2SAT 98; BMI 34.2
[2023-10-03 09:21] VITALS: BP 120/70
== END 2023-10-03 09:33 | disposition home or self-care (01) ==
PROVIDERS: PCP Nurse Practitioner Family; Visit Provider Nurse Practitioner Family
DX: I10 Essential (primary) hypertension (principal); E78.00 Pure hypercholesterolemia, unspecified; F41.9 Anxiety disorder, unspecified; F32.A Depression, unspecified; R74.01 Elevation of levels of liver transaminase levels; M81.0 Age-related osteoporosis without current pathological fracture
CPT/HCPCS: 99214; G2211

== ENCOUNTER 2023-10-06 09:47 | Outpatient (AMB) | payer MEDICARE, SELFPAY ==
--- NOTE | 2023-10-06 09:55 | MHC.OFFVIS ---
Vital Signs 10/06/23 09:56 Height 5 ft 4 in Weight 199 lb 4.766 oz BMI 34.2 BP 126/76 Blood Pressure Location Lt brachial Position Sitting Pulse 63 Pulse Source Pulse Oximeter Intake Visit Reasons: Osteoporosis-confirmed Intake Note: Patient present today for Osteoporosis follow up visit. Reinforcement Maker Required: No Accompanied by: Self / Same As Patient Allergies codeine Allergy (Severe, Verified 10/06/23 09:59) Codeine Sulfate- HIVES Seasonal Allergies Allergy (Intermediate, Verified 10/06/23 09:59) Runny Nose latex Adverse Reaction (Mild, Verified 10/06/23 09:59) Rash Medication List - Last Reconciled 10/06/23 by William La MD amlodipine 5 mg PO DAILY atenolol 50 mg PO DAILY cetirizine (Zyrtec) 10 mg PO DAILY [flaxseed oil ] fluticasone propionate 50 mcg/actuation (Allergy Relief (fluticasone)) 2 sprays intranasal DAILY PRN hydrochlorothiazide 25 mg PO DAILY metformin 500 mg PO BIDWMEAL 30 days [Ocuvite ] rosuvastatin 20 mg PO BEDTIME trazodone 50 mg PO BEDTIME PRN 30 days venlafaxine ER (Effexor XR) 75 mg PO QAM 30 days [Vitamin D3 2,000 PO DAILY] HPI Comments Details: 72 YO Female is seen in consultation at the request of PCP for Osteoporosis. First diagnosed in recently . Not Received treatment in the past No history of pathologic fracture or ONJ. Has several servings of dietary calcium per day in the form of cottage cheese, salmon , yogurt . Not Takes Calcium supplement . Takes 1000 IU of Vitamin D daily. Denies ever using PPI, anticoagulant, antiepileptic or glucocorticoid medication. 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 Not UTD on dental cleanings and sees dentist every 6 months. No planned upcoming dental work or extractions. DXA dated 08/30/2023 : FINDINGS: LEFT FEMUR, NECK: BMD 0.885 g/cm2, Z-score 0.0, T-score -1.1, osteopenia. LEFT FEMUR, TOTAL: BMD 0.972 g/cm2, Z-score 0.5, T-score -0.3, normal. AP SPINE L1-L2 (excluding L3 and L4): The data of L1-L4 has been changed to exclude the L3 and L4 vertebral bodies, because degenerative sclerosis at these levels may cause overestimation of lumbar spine density. BMD 0.778 g/cm2, Z-score -2.5, T-score -3.2, osteoporosis. IDENTIFIED RISK FACTORS: Low calcium intake, alcohol use, menopause, thiazide, secondary osteoporosis (intestinal or bowel disease, not IBS). HISTORY OF FRACTURE: None listed. MEDICATIONS: Vitamin D. MM/XR DEXA axial skeleton IMPRESSION: 1. DIAGNOSIS: Osteoporosis based on the lowest T-score value of -3.2 in Labs: [facility] Medical History Obesity History of benign schwannoma Arthritis Back pain Diverticulitis Diabetes mellitus type 2, diet-controlled Depression Elevated cholesterol Hypertension Surgical History History of surgery History of colonoscopy History of bowel resection Family History Family/Other Chronic mental illness Son In good health Son In good health Daughter In good health Lupus Mother Alzheimer disease Sister Colon cancer Other Mental health disorder Social History Household Members: Family Both parents involved: No Caregiver staying overnight: No Housing: House Are you a primary managed care specialist to a significant other at home: No Do you presently have visiting nurse or other home services: No 75 years or older and lives alone: No Patient Tobacco Use Status: Former Tobacco user e-Cigarette/Vaping Use: Never Used Second Hand Smoke Exposure: No service: No Current occupational status: retired Current occupational exposures/hazards: No Cognitive needs: No Hearing needs: Yes Vision needs: Yes Physical Exam Vital Signs: Last Vital Signs Pulse 63 10/06/23 09:56 BP 126/76 10/06/23 09:56 BMI result Body Mass Index 34.2 There are no Cushingoid features. Absence of blue sclera. Absence of kyphosis. Thyroid gland is of nl size and weighs 15 gms. There are no thyroid nodules palpated. Lungs CTA. Heart S1 S2 Reg R/R Abdominal exam benign. Muscle strength 5/5 . Examination of spine reveals absence of tenderness on palpation Assessment & Plan Assessment & Plan (1) Osteoporosis: Code(s): M81.0 - Age-related osteoporosis without current pathological fracture Category: Medical Plan: This is a 72-year-old white female with a history of osteoporosis with partial secondary workup negative. Complete secondary workup Will check 24 hour urine for calcium and creatinine, SPEP, urine immunofixation, phosphorus and 25 hydroxy vitamin-D. Will ensure adequate calcium intake and vitamin-D supplementation. Assuming workup is negative could consider therapy initially, with anabolic therapy proceeded by anti resorptive considering very low bone density and high risk for fracture . Orders: Orders Phosphorus Today M81.0 - Age-related osteoporosis without current pathological fracture Immunofixation, Random Urine Today M81.0 - Age-related osteoporosis without current pathological fracture Vitamin D 25-OH Total Today M81.0 - Age-related osteoporosis without current pathological fracture Calcium, 24 Hr Ur Today M81.0 - Age-related osteoporosis without current pathological fracture Creatinine, 24 Hr Group Today M81.0 - Age-related osteoporosis without current pathological fracture Protein Electrophoresis, Serum Today M81.0 - Age-related osteoporosis without current pathological fracture Coding Level of Care Code New Pt Level 4 (33331) Diagnoses Osteoporosis M81.0
[2023-10-06 09:56] VITALS: BP 126/76; PULSE 63; BMI 34.2
== END 2023-10-06 11:02 | disposition home or self-care (01) ==
PROVIDERS: PCP Nurse Practitioner Family; Visit Provider Internal Medicine Endocrinology, Diabetes & Metabolism
DX: M81.0 Age-related osteoporosis without current pathological fracture (principal)
CPT/HCPCS: 99204

== ENCOUNTER → 2023-10-06 09:47 | Outpatient (BNVA) | payer MEDICARE, SELFPAY | PROVIDERS: PCP Nurse Practitioner Family; Visit Provider Internal Medicine Endocrinology, Diabetes & Metabolism | DX: M81.0 Age-related osteoporosis without current pathological fracture (principal) | CPT/HCPCS: 99202 ==

== ENCOUNTER 2023-11-07 11:20 | Outpatient (AMB) | payer MEDICARE, SELFPAY ==
--- NOTE | 2023-11-07 11:27 | A.OFFPC_ITS ---
Vital Signs 11/07/23 11:36 Height 5 ft 4 in Weight 193 lb 4 oz BMI 33.2 BP 122/70 Blood Pressure Location Lt brachial Position Sitting Respiration 16 Pulse 62 Pulse Source Pulse Oximeter Temp 97.9 F Temp Source Oral Pulse Oximetry (%) 96 Oxygen Delivery Method Room Air Intake Visit Reasons: 1 mos DM Intake Note: patient here for 1 month follow up on DM. 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 Is last menstrual period known: No Post menopausal: No Patient : No Allergies codeine Allergy (Severe, Verified 11/07/23 12:00) Codeine Sulfate- HIVES Seasonal Allergies Allergy (Intermediate, Verified 11/07/23 12:00) Runny Nose latex Adverse Reaction (Mild, Verified 11/07/23 12:00) Rash Medication List - Last Reconciled 11/07/23 by Francisco Schrader CNP amlodipine 5 mg PO DAILY atenolol 50 mg PO DAILY cetirizine (Zyrtec) 10 mg PO DAILY [flaxseed oil ] fluticasone propionate 50 mcg/actuation (Allergy Relief (fluticasone)) 2 sprays intranasal DAILY PRN hydrochlorothiazide 25 mg PO DAILY metformin 500 mg PO BIDWMEAL 30 days [Ocuvite ] rosuvastatin 20 mg PO BEDTIME trazodone 50 mg PO BEDTIME PRN 30 days venlafaxine ER (Effexor XR) 75 mg PO QAM 30 days [Vitamin D3 2,000 PO DAILY] Tobacco use date assessed: 11/07/23 Fall risk assessment: 1 Fall in past year Last assessed Fall Risk: 11/07/23 Dental Screening Dental Screen Date: 11/07/23 Did you have a dental visit in the last 12 months?: No Did you have a dental problem in the last 6 months where you did not have access to dental care?: No Was dental information given to patient?: Patient declined HPI HPI Comments History of Present Illness Details 72-year-old female presents for diabetes follow-up She admits to taking her medications as prescribed without adverse reactions She notes sleep disturbances which she attributes to right knee pain which started 15 years ago. She describes the pain as dull ache. The pain is only at rest now when standing or walking. No gait abnormality. Ibuprofen and Tylenol sometimes help. She does not want opiate due to history of substance abuse. She saw ortho at the onset of her right knee pain, xray was negative. She denies h/o traumatic injury to the knee She reports controlled anxiety and depressive symptoms. However, she notes that she has been going through a lot. She states that her has significant health issues. She received bad news today that her son's best friend has esophageal cancer. He sister has colon cancer. Also, her best friend recently fell off a ladder and broke her leg. She describes these life events as normal grieving [facility] Medical History Obesity History of benign schwannoma Arthritis Back pain Diverticulitis Diabetes mellitus type 2, diet-controlled Depression Elevated cholesterol Hypertension Surgical History History of surgery History of colonoscopy History of bowel resection Family History Family/Other Chronic mental illness Son In good health Son In good health Daughter In good health Lupus Mother Alzheimer disease Sister Colon cancer Other Mental health disorder Social History Household Members: Family Both parents involved: No Caregiver staying overnight: No Housing: House Are you a primary care manager to a significant other at home: No Do you presently have visiting nurse or other home services: No 75 years or older and lives alone: No Patient Tobacco Use Status: Former Tobacco user e-Cigarette/Vaping Use: Never Used Second Hand Smoke Exposure: No service: No Current occupational status: retired Current occupational exposures/hazards: No Cognitive needs: No Hearing needs: Yes Vision needs: Yes Questionnaire PHQ-9 Over the last 2 weeks, how often have you been bothered by any of the following problems? 1. Little interest or pleasure in doing things: several days 2. Feeling down, depressed, or hopeless: not at all 3. Trouble falling or staying asleep, or sleeping too much: nearly every day 4. Feeling tired or having little energy: several days 5. Poor appetite or overeating: not at all 6. Feeling bad about yourself - or that you are a failure or have let yourself or your family down: not at all 7. Trouble concentrating on things, such as reading the newspaper or watching television: several days 8. Moving or speaking so slowly that other people could have noticed. Or the opposite - being so fidgety or restless that you have been moving around a lot more than usual: not at all 9. Thoughts that you would be better off or of hurting yourself in some way: not at all Total score: 6 Depression Screening Interpretation: Negative Depression Screening Done: Yes 17028 - PHQ-9 Billing: Yes Source: Developed by Drs. William Haji, Kristy Baker, Jeffrey Duran and colleagues, with an educational aranza from [employer]. Thrive Questionnaire Date Thrive assessed: 07/26/23 AASHISH-7 AMB Questionnaire AASHISH-7 Date AASHISH - 7 assessed: 11/07/23 Feeling nervous, anxious, or on edge: 1 = Several days Not being able to stop or control worryin = Several days Worrying too much about different things: 1 = Several days Trouble relaxin = Several days Being so restless that it is hard to sit still: 0 = Not at all Becoming easily annoyed or irritable: 1 = Several days Feeling afraid as if something awful might happen: 0 = Not at all Total AASHISH-7 score (0-4 normal; 5-9 mild; 10-14 moderate; 15-21 severe): 5 Source: Developed by Drs. William Haji, Kristy Baker, Jeffrey Duran and colleagues, with an educational aranza from [employer]. AASHISH-7 Assessment Billing AASHISH-7 Assessment Tool: AASHISH-7 Assessment 89102 Review of Systems Const Details: Const Denies chills, Denies fatigue, Denies fever(s), Denies headache(s) and Denies weakness ENT Denies dizziness and Denies headache(s) Card Denies chest pain, Denies lightheadedness, Denies dyspnea and Denies other (Palpitations) Resp Denies cough, Denies dyspnea, Denies wheezing and Denies other ( shortness of breath) GI Denies abdominal pain, Denies melena, Denies hematochezia, Denies change in bowel habits, Denies dyspepsia and Denies nausea Denies hematuria and Denies dysuria Musc Denies abnormal gait, Denies numbness and Denies tingling Skin/Breast Denies rash, Denies unusual bruising and Denies wounds Neuro Denies abnormal gait, Denies dizziness, Denies headache(s), Denies memory loss, Denies numbness, Denies Sensory deficit (Neuro), Denies tingling and Denies weakness Psych Denies anxiety, Denies depression, Denies memory loss Endo Denies cold intolerance, Denies fatigue, Denies heat intolerance, Denies polydipsia and Denies polyuria Aller/Immun Denies wheezing Physical exam (Primary Care) Vital Signs: Last Vital Signs Temp 97.9 F 11/07/23 11:36 Pulse 62 11/07/23 11:36 Resp 16 11/07/23 11:36 BP 122/70 11/07/23 11:36 Pulse Ox 96 11/07/23 11:36 Oxygen Delivery Method Room Air 11/07/23 11:36 BMI result Body Mass Index 33.2 Tobacco/Smoking Status: Tobacco use Status Tobacco use date assessed 11/07/23 11/07/23 11:35 Patient Tobacco Use Status Former Tobacco user 11/07/23 11:28 e-Cigarette/Vaping Use Never Used 11/07/23 11:28 Depression Screening Interpretation: Negative Thrive Assessment: Date of Thrive Assessment Date Thrive assessed 07/26/23 11/07/23 11:28 Const Other: General: no acute distress and well developed Nutritional Appearance: well nourished Orientation/consciousness: patient oriented x3 HENMT Head: Yes normocephalic and Yes atraumatic Eyes General: appearance normal, both eyes and all related structures Pupils: Equal, round and reactive pupils present EOM: EOMs intact bilaterally Resp Effort & Inspection: normal respiratory effort Auscultation: clear to auscultation bilaterally Cardio Rate: regular rate Rhythm: regular rhythm Heart sounds: S1 normal heart sound present, S2 normal heart sound present, no gallops, no murmurs and no rubs GI Palpation (GI): No Abdominal aortic bruit present, Soft to palpation, nontender, No hepatosplenomegaly present and No Rebound tenderness present Auscultation: normal bowel sounds General: Yes no CVA tenderness Back/Spine/Pelvis Back: no CVA tenderness Cervical Spine: cervical ROM normal and No Cervical spine tenderness Thoracic/Lumbar Spine: thoraco-lumbar ROM normal, No pain with thoraco-lumbar ROM, No thoracic spinal tenderness and No lumbar spinal tenderness Extrem General: Yes normal to inspection, No edema and No calf tenderness No overt injury or trauma noted to the right knee. ROM of the right knees normal with some discomfort Skin General: warm and dry. Normal skin color. Normal skin turgor Neuro General: patient oriented x3, gait normal and no focal neuro deficit Cranial nerves: Yes Equal, round and reactive pupils present Cognition (Neuro): normal cognition Gait exam (Neuro): Normal gait present Sensory Exam: No Sensory deficit (Neuro) Psych Appearance: grossly normal Affect: normal affect Attitude: cooperative Thought process: Normal thought process present Results AMB Hemoglobin A1c AMB Hemoglobin A1c 5.6 % Last Edit by Nkechi Odell on 11/07/23 12:03 Results Reviewed Results Reviewed: Laboratory Last Values Hgb A1c (Clinic) 5.6 % (4.0-6.0) 11/07/23 11:58 Assessment and Plan Assessment & Plan (1) Type 2 diabetes mellitus: Code(s): E11.9 - Type 2 diabetes mellitus without complications Plan: A1c today is 5.6%, within goal of less than 7.0%. Previous A1c was 7.9% Continue current treatment regimen ADA diet and routine exercise encouraged Follow-up in 3 months or sooner with symptoms or concerns Verbalized understanding and agreed with the treatment plan (2) Hypertension: Code(s): I10 - Essential (primary) hypertension Qualifiers: Hypertension type: primary hypertension Qualified Code(s): I10 - Essential (primary) hypertension Plan: Blood pressure is 122/70, within goal of less than 130/80 Continue current treatment regimen Low-sodium diet encouraged Follow-up in 3 months Verbalized understanding and agreed with the treatment plan (3) Sleep disturbance: Code(s): G47.9 - Sleep disorder, unspecified Plan: She attributes sleep disturbances to chronic right knee pain No overt injury or trauma noted to the right knee. ROM of the right knees normal with some discomfort X-ray ordered Referred to physical therapy Continue to take Tylenol ibuprofen as needed Warm/cool compresses and light stretching as tolerable encouraged Follow-up with worsening or new symptoms Verbalized understanding and agreed with the treatment plan (4) Chronic pain of right knee: Code(s): M25.561 - Pain in right knee; G89.29 - Other chronic pain Plan: As above (5) Anxiety and depression: Code(s): F41.9 - Anxiety disorder, unspecified; F32.A - Depression, unspecified Plan: Reports controlled anxiety and depressive symptoms. However, she is going through significant life events which she describes as normal grieving. Her friends and family members have significant medical issues PHQ-9 and AASHISH-7 scores revealed mild depression and anxiety Advised to continue current treatment regimen Routine exercise encouraged She met with the [facility] who will refer her to a therapist Follow-up in 3 months or sooner with worsening or new symptoms Verbalized understanding and agreed with the treatment plan Orders: Orders AMB Hemoglobin A1c Today Z13.9 - Encounter for screening, unspecified XR knee RT 2V Today G89.29 - Other chronic pain, M25.561 - Pain in right knee PT Evaluation and Treatment Today G89.29 - Other chronic pain, M25.561 - Pain in right knee Coding Level of Care Code Est Pt Level 4 (30743) Complex EM visit Add On G2211 Diagnoses Type 2 diabetes mellitus E11.9 Primary hypertension I10 Hypertension type: primary hypertension Sleep disturbance G47.9 Chronic pain of right knee M25.561; G89.29 Anxiety and depression F41.9; F32.A Additional Codes AASHISH-7 Assessment Billing - AASHISH-7 Assessment Tool: AASHISH-7 Assessment 13154 ([id number])
[2023-11-07 11:36] VITALS: BP 122/70; PULSE 62; RESP 16; TEMP 36.6; O2SAT 96; BMI 33.2
== END 2023-11-07 12:36 | disposition home or self-care (01) ==
PROVIDERS: PCP Nurse Practitioner Family; Visit Provider Nurse Practitioner Family
DX: E11.9 Type 2 diabetes mellitus without complications (principal); I10 Essential (primary) hypertension; G47.9 Sleep disorder, unspecified; M25.561 Pain in right knee; G89.29 Other chronic pain; F41.9 Anxiety disorder, unspecified; F32.A Depression, unspecified
CPT/HCPCS: 83036; 99214; G2211

== ENCOUNTER 2023-11-08 08:14 | Outpatient (REF) | payer MEDICARE, SELFPAY ==
--- NOTE | ~2023-11-08 | XR_ITS ---
EXAMINATION: XR knee RT 2V CLINICAL INFORMATION: M25.561 - Pain in right knee COMPARISON: None. TECHNIQUE: AP, lateral, and oblique views of the right knee FINDINGS: * No acute fracture or dislocation. * Moderate to severe degenerative changes with tricompartmental joint space narrowing and large osteophytosis. No large effusion. * No soft tissue abnormality. XR/XR knee RT 2V IMPRESSION: Moderate to severe degenerative changes of the right knee. Electronically signed by: Felicitas Moreno MD 12/06/2023 06:28 PM EDT
== END 2023-11-08 08:15 | disposition home or self-care (01) ==
LOC: HO.XRAY 08:14
PROVIDERS: PCP Nurse Practitioner Family
DX: M25.561 Pain in right knee (principal); G89.29 Other chronic pain
CPT/HCPCS: 73560

== ENCOUNTER 2024-01-11 08:28 | Outpatient (REF) | payer MEDICARE, SELFPAY ==
[2024-01-11 11:12] LABS: Phosphorus 3.3 mg/dL (2.7-4.5)
[2024-01-11 11:30] LABS: Creatinine, 24Hr Urine 1.1 G/Day (1.0-2.0); Creatinine, mg/dL 49.37; Total Volume 24 Hour Urine 2200 mL
[2024-01-11 11:40] LABS: Vitamin D 25-OH Total 58.9 ng/mL (>30)
[2024-01-13 12:53] LABS: Prot Elec - Albumin 4.5 g/dL (3.8-4.8); Prot Elec - Alpha1 0.3 g/dL (0.2-0.3); Prot Elec - Alpha2 0.7 g/dL (0.5-0.9); Prot Elec - Beta 1 0.5 g/dL (0.4-0.6); Prot Elec - Beta 2 0.4 g/dL (0.2-0.5); Prot Elec - Gamma 0.8 g/dL (0.8-1.7); Prot Elec - Total Protein 7.2 g/dL (6.1-8.1)
[2024-01-13 17:24] LABS: Calcium, 24 Hr Urine 286 mg/24 h; Calcium/Creatinine Ratio 255 mg/g creat (30-275); Creatinine 24Hr Urine 1.12 g/24 h (0.50-2.15)
== END 2024-01-11 08:29 | disposition home or self-care (01) ==
LOC: HO.10HDL 08:28
PROVIDERS: Visit Provider Internal Medicine Endocrinology, Diabetes & Metabolism
DX: M81.0 Age-related osteoporosis without current pathological fracture (principal)
CPT/HCPCS: 82306; 82340; 82570; 84100; 84165; 86335

== ENCOUNTER 2024-02-13 09:14 | Outpatient (AMB) | payer MEDICARE, SELFPAY ==
--- NOTE | 2024-02-13 09:19 | A.OFFVIS_ITS ---
Vital Signs 02/13/24 09:22 Height 5 ft 4 in Weight 176 lb 5.917 oz BMI 30.3 BP 120/76 Blood Pressure Location Rt brachial Position Sitting Pulse 72 Pulse Source Pulse Oximeter Intake Visit Reasons: Osteoporosis-lvm Intake Note: Patient present today for Osteoporosis follow up visit. 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 Accompanied by: Self / Same As Patient Allergies codeine Allergy (Severe, Verified 11/07/23 12:00) Codeine Sulfate- HIVES Seasonal Allergies Allergy (Intermediate, Verified 11/07/23 12:00) Runny Nose latex Adverse Reaction (Mild, Verified 11/07/23 12:00) Rash Medication List - Last Reconciled 02/13/24 by William La MD amlodipine 5 mg PO DAILY atenolol 50 mg PO DAILY cetirizine (Zyrtec) 10 mg PO DAILY [flaxseed oil ] fluticasone propionate 50 mcg/actuation (Allergy Relief (fluticasone)) 2 sprays intranasal DAILY PRN hydrochlorothiazide 25 mg PO DAILY metformin 500 mg PO BIDWMEAL 30 days [Ocuvite ] rosuvastatin 20 mg PO BEDTIME trazodone 50 mg PO BEDTIME PRN 30 days venlafaxine ER (Effexor XR) 75 mg PO QAM 30 days [Vitamin D3 2,000 PO DAILY] HPI Comments Details: 73 YO Female is seen in consultation at the request of PCP for Osteoporosis. First diagnosed in recently . Not Received treatment in the past No history of pathologic fracture or ONJ. Has several servings of dietary calcium per day in the form of cottage cheese, salmon , yogurt . Not Takes Calcium supplement . Takes 1000 IU of Vitamin D daily. Denies ever using PPI, anticoagulant, antiepileptic or glucocorticoid medication. 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 Not UTD on dental cleanings and sees dentist every 6 months. No planned upcoming dental work or extractions. DXA dated 08/30/2023 : FINDINGS: LEFT FEMUR, NECK: BMD 0.885 g/cm2, Z-score 0.0, T-score -1.1, osteopenia. LEFT FEMUR, TOTAL: BMD 0.972 g/cm2, Z-score 0.5, T-score -0.3, normal. AP SPINE L1-L2 (excluding L3 and L4): The data of L1-L4 has been changed to exclude the L3 and L4 vertebral bodies, because degenerative sclerosis at these levels may cause overestimation of lumbar spine density. BMD 0.778 g/cm2, Z-score -2.5, T-score -3.2, osteoporosis. IDENTIFIED RISK FACTORS: Low calcium intake, alcohol use, menopause, thiazide, secondary osteoporosis (intestinal or bowel disease, not IBS). HISTORY OF FRACTURE: None listed. MEDICATIONS: Vitamin D. MM/XR DEXA axial skeleton IMPRESSION: 1. DIAGNOSIS: Osteoporosis based on the lowest T-score value of -3.2 in Labs: Secondary workup was negative [facility] Medical History Obesity History of benign schwannoma Arthritis Back pain Diverticulitis Diabetes mellitus type 2, diet-controlled Depression Elevated cholesterol Hypertension Surgical History History of surgery History of colonoscopy History of bowel resection Family History Family/Other Chronic mental illness Son In good health Son In good health Daughter In good health Lupus Mother Alzheimer disease Sister Colon cancer Other Mental health disorder Social History Household Members: Family Both parents involved: No Caregiver staying overnight: No Housing: House Are you a primary senior care manager to a significant other at home: No Do you presently have visiting nurse or other home services: No 75 years or older and lives alone: No Patient Tobacco Use Status: Former Tobacco user e-Cigarette/Vaping Use: Never Used Second Hand Smoke Exposure: No service: No Current occupational status: retired Current occupational exposures/hazards: No Cognitive needs: No Hearing needs: Yes Vision needs: Yes Assessment & Plan Assessment & Plan (1) Osteoporosis: Code(s): M81.0 - Age-related osteoporosis without current pathological fracture Category: Medical Plan: This is a 72-year-old white female with a history of osteoporosis with negative secondary workup negative. Will consider therapy initially, with anabolic therapy proceeded by anti resorptive considering very low bone density and high risk for fracture . We also discussed repeating the DEXA bone density with TBS at [facility] because the vertebral bone density was very discordant with the hip I am concerned that measurement was done wrong. If the repeat bone density is consistent with the previous 1, would then start anabolic therapy at that point Orders: Orders XR DEXA axial skeleton Today M81.0 - Age-related osteoporosis without current pathological fracture Coding Level of Care Code Est Pt Level 3 (96187) Diagnoses Osteoporosis M81.0
[2024-02-13 09:22] VITALS: BP 120/76; PULSE 72; BMI 30.3
== END 2024-02-13 10:00 | disposition home or self-care (01) ==
PROVIDERS: PCP Nurse Practitioner Family; Visit Provider Internal Medicine Endocrinology, Diabetes & Metabolism
DX: M81.0 Age-related osteoporosis without current pathological fracture (principal)
CPT/HCPCS: 99213

== ENCOUNTER → 2024-02-13 09:14 | Outpatient (BNVA) | payer MEDICARE, SELFPAY | PROVIDERS: PCP Nurse Practitioner Family; Visit Provider Internal Medicine Endocrinology, Diabetes & Metabolism | DX: M81.0 Age-related osteoporosis without current pathological fracture (principal) | CPT/HCPCS: 99212 ==

== ENCOUNTER 2024-02-17 08:44 | Outpatient (AMB) | payer MEDICARE, SELFPAY ==
--- NOTE | 2024-02-17 08:49 | MHC.PC.OV ---
Vital Signs 02/17/24 09:02 Height 5 ft 4 in Weight 176 lb 6 oz BMI 30.3 BP 136/68 Blood Pressure Location Lt brachial Position Sitting Respiration 16 Pulse 77 Pulse Source Pulse Oximeter Temp 98.0 F Temp Source Oral Pulse Oximetry (%) 99 Oxygen Delivery Method Room Air Intake Visit Reasons: 3 mos HTN, DM, anxiety, depression, Intake Note: patient hre to follow up on HTN, DM,anxiety and depression Back Shoe Cutter Required: No Is last menstrual period known: No Post menopausal: No Patient : No Allergies codeine Allergy (Severe, Verified 02/17/24 08:53) Codeine Sulfate- HIVES Seasonal Allergies Allergy (Intermediate, Verified 02/17/24 08:53) Runny Nose latex Adverse Reaction (Mild, Verified 02/17/24 08:53) Rash Tobacco use date assessed: 02/17/24 Fall risk assessment: 2 + Falls in past year Last assessed Fall Risk: 02/17/24 Dental Screening Dental Screen Date: 02/17/24 Did you have a dental visit in the last 12 months?: No Did you have a dental problem in the last 6 months where you did not have access to dental care?: No Was dental information given to patient?: Yes HPI HPI Comments History of Present Illness Details The patient is a 73-year-old female presenting with a request for follow-up regarding previously diagnosed conditions of hypertension, type 2 diabetes, anxiety, and depression. She reports significant weight loss, having decreased from 220 pounds to 176 pounds since starting lifestyle modifications involving the elimination of sugar and a reduction of red meat in her diet. Her last recorded weight was 193 pounds in October, indicating a loss of approximately 17 pounds since her most recent visit. Her diabetes is managed with metformin, which she takes inconsistently, often forgetting the second daily dose. The patient indicates that her anxiety and depression have improved significantly following a medication change from citalopram to venlafaxine, providing better symptom control than the previous therapy. Her blood pressure has been recorded as low during a recent consultation with Dr. La. She denies current symptoms of concern related to her anxiety, depression, or hypertension but remains vigilant about blood pressure management. Social History - Reports abstinence from alcohol for 41 years. - Avoids sugar and red meat in her diet. - Engages in walking for exercise, though travel has impacted its frequency. - Spent a significant period caring for her grandchildren, indicating an active lifestyle with family involvement. Results - Labs: Hemoglobin A1c at this visit is 5.5%. Previous A1c was 5.6%. [facility] Medical History Obesity History of benign schwannoma Arthritis Back pain Diverticulitis Diabetes mellitus type 2, diet-controlled Depression Elevated cholesterol Hypertension Surgical History History of surgery History of colonoscopy History of bowel resection Family History Family/Other Chronic mental illness Son In good health Son In good health Daughter In good health Lupus Mother Alzheimer disease Sister Colon cancer Other Mental health disorder Social History Household Members: Family Both parents involved: No Caregiver staying overnight: No Housing: House Are you a primary career development associate to a significant other at home: No Do you presently have visiting nurse or other home services: No 75 years or older and lives alone: No Patient Tobacco Use Status: Former Tobacco user e-Cigarette/Vaping Use: Never Used Second Hand Smoke Exposure: No service: No Current occupational status: retired Current occupational exposures/hazards: No Cognitive needs: No Hearing needs: Yes Vision needs: Yes Questionnaire PHQ-9 Over the last 2 weeks, how often have you been bothered by any of the following problems? 1. Little interest or pleasure in doing things: not at all 2. Feeling down, depressed, or hopeless: not at all 3. Trouble falling or staying asleep, or sleeping too much: several days 4. Feeling tired or having little energy: several days 5. Poor appetite or overeating: not at all 6. Feeling bad about yourself - or that you are a failure or have let yourself or your family down: not at all 7. Trouble concentrating on things, such as reading the newspaper or watching television: not at all 8. Moving or speaking so slowly that other people could have noticed. Or the opposite - being so fidgety or restless that you have been moving around a lot more than usual: not at all 9. Thoughts that you would be better off or of hurting yourself in some way: not at all Total score: 2 Depression Screening Interpretation: Negative Depression Screening Done: Yes 74820 - PHQ-9 Billing: Yes Source: Developed by Drs. William Haji, Jeffrey Barcenas and colleagues, with an educational aranza from [employer]. Thrive Questionnaire Date Thrive assessed: 02/17/24 I am a: Patient What is your living situation today?: I have a steady place to live Within the past 12 months, did the food you bought not last and you didn't have the money to get more?: Never true Within the past 12 months, did you worry whether your food would run out before you got money to buy more?: Never true Do you have trouble paying for medicines?: No Do you have trouble getting transportation to medical appointments?: No Do you have trouble paying your heating and electricity bill?: No Do you have trouble taking care of your child, family member or friend?: No Do you have trouble with day-to-day activities such as bathing, preparing meals, shopping, managing finances, etc.?: No Are you currently unemployed and looking for a job?: No Are you interested in more education?: No Please select the resources that you would like help with: None Currently or been in a relationship where the following occur: No concerns reported THRIVE Score: 0 AUDIT C Alcohol Use Questionnaire (AUDIT-C) 1. How often do you have a drink containing alcohol?: Never Total Score: 0 AASHISH-7 AMB Questionnaire AASHISH-7 Date AASHISH - 7 assessed: 02/17/24 Feeling nervous, anxious, or on edge: 0 = Not at all Not being able to stop or control worryin = Not at all Worrying too much about different things: 0 = Not at all Trouble relaxin = Not at all Being so restless that it is hard to sit still: 0 = Not at all Becoming easily annoyed or irritable: 0 = Not at all Feeling afraid as if something awful might happen: 0 = Not at all Total AASHISH-7 score (0-4 normal; 5-9 mild; 10-14 moderate; 15-21 severe): 0 Source: Developed by Kristy Chanel Kurt Kroenke and colleagues, with an educational aranza from [employer]. Review of Systems Const Details: Const Denies chills, Denies fatigue, Denies fever(s), Denies headache(s) and Denies weakness ENT Denies dizziness and Denies headache(s) Card Denies chest pain, Denies lightheadedness, Denies dyspnea and Denies other (Palpitations) Resp Denies cough, Denies dyspnea, Denies wheezing and Denies other ( shortness of breath) GI Denies abdominal pain, Denies melena, Denies hematochezia, Denies change in bowel habits, Denies dyspepsia and Denies nausea Denies hematuria and Denies dysuria Musc Denies abnormal gait, Denies myalgias, Denies arthralgias, Denies numbness and Denies tingling Skin/Breast Denies rash, Denies unusual bruising and Denies wounds Neuro Denies abnormal gait, Denies dizziness, Denies headache(s), Denies memory loss, Denies numbness, Denies Sensory deficit (Neuro), Denies tingling and Denies weakness Psych Denies anxiety, Denies depression, Denies memory loss Endo Denies cold intolerance, Denies fatigue, Denies heat intolerance, Denies polydipsia and Denies polyuria Aller/Immun Denies wheezing Physical exam (Primary Care) Vital Signs: Last Vital Signs Temp 98.0 F 02/17/24 09:02 Pulse 77 02/17/24 09:02 Resp 16 02/17/24 09:02 BP 136/68 02/17/24 09:02 Pulse Ox 99 02/17/24 09:02 Oxygen Delivery Method Room Air 02/17/24 09:02 BMI result Body Mass Index 30.3 Tobacco/Smoking Status: Tobacco use Status Tobacco use date assessed 02/17/24 02/17/24 09:05 Patient Tobacco Use Status Former Tobacco user 02/17/24 09:05 e-Cigarette/Vaping Use Never Used 02/17/24 09:05 PHQ-9: PHQ-9 Score PHQ-9: Total score 2 02/17/24 09:05 Depression Screening Interpretation: Negative Thrive Assessment: Date of Thrive Assessment Date Thrive assessed 02/17/24 02/17/24 09:05 Currently or been in a relationship where the following occur: No concerns reported Const Other: General: no acute distress and well developed Nutritional Appearance: well nourished Orientation/consciousness: patient oriented x3 [facility] Head: Yes normocephalic and Yes atraumatic Eyes General: appearance normal, both eyes and all related structures Pupils: Equal, round and reactive pupils present EOM: EOMs intact bilaterally Resp Effort & Inspection: normal respiratory effort Auscultation: clear to auscultation bilaterally Cardio Rate: regular rate Rhythm: regular rhythm Heart sounds: S1 normal heart sound present, S2 normal heart sound present, no gallops, no murmurs and no rubs GI Palpation (GI): No Abdominal aortic bruit present, Soft to palpation, nontender, No hepatosplenomegaly present and No Rebound tenderness present Auscultation: normal bowel sounds General: Yes no CVA tenderness Back/Spine/Pelvis Back: no CVA tenderness Extrem General: Yes normal to inspection, No edema and No calf tenderness Skin General: warm and dry. Normal skin color. Normal skin turgor Neuro General: patient oriented x3, gait normal and no focal neuro deficit Cranial nerves: Yes Equal, round and reactive pupils present Cognition (Neuro): normal cognition Gait exam (Neuro): Normal gait present Sensory Exam: No Sensory deficit (Neuro) Psych Appearance: grossly normal Affect: normal affect Attitude: cooperative Thought process: Normal thought process present Results AMB Hemoglobin A1c AMB Hemoglobin A1c 5.5 % Last Edit by Nkechi Odell on 02/17/24 09:15 Coding Level of Care Code Est Pt Level 4 (43587) Diagnoses Primary hypertension I10 Hypertension type: primary hypertension Type 2 diabetes mellitus E11.9 Anxiety and depression F41.9; F32.A Additional Codes PHQ-9 - 47915 - PHQ-9 Billing: Yes ([id number]) Assessment & Plan Assessment & Plan (1) Hypertension: Code(s): I10 - Essential (primary) hypertension Category: Medical Qualifiers: Hypertension type: primary hypertension Qualified Code(s): I10 - Essential (primary) hypertension Plan: Continue atenolol, amlodipine, and hydrochlorothiazide as prescribed. Maintain a low-sodium diet and regular blood pressure monitoring. (2) Type 2 diabetes mellitus: Code(s): E11.9 - Type 2 diabetes mellitus without complications Category: Medical Plan: Adjust metformin to a once-daily regimen to improve compliance. Emphasize the continuation of a healthy, low-carbohydrate diet and regular physical activity. (3) Anxiety and depression: Code(s): F41.9 - Anxiety disorder, unspecified; F32.A - Depression, unspecified Category: Medical Plan: Maintain venlafaxine therapy, as it has proven highly effective for symptom management. Observe for any potential side effects due to polypharmacy. Plan I discussed with the patient that her blood pressure and glucose levels are being well-managed with her current medication regimen. The lifestyle changes, particularly the substantial weight loss through diet modifications, have positively impacted her overall health and specifically her glycemic control. Venlafaxine has shown remarkable efficacy in managing her anxiety and depression compared to her previous medication. The importance of medication adherence, notably with metformin, was stressed, and a simplified regimen was recommended to improve compliance. I advised routine follow-ups to ensure ongoing success in managing her chronic conditions and to make any necessary adjustments to her care plan. Orders: Orders Lipid Panel 3 Months E11.9 - Type 2 diabetes mellitus without complications AMB Hemoglobin A1c Today Z13.9 - Encounter for screening, unspecified Medications: Changed From metformin 500 mg PO BIDWMEAL 30 days 60 tabs 3RF To metformin 500 mg PO .QDWMEAL 90 days 90 tabs 1RF Refilled atenolol 50 mg PO DAILY 90 tabs 1RF cetirizine (Zyrtec) 10 mg PO DAILY 30 tabs 6RF allergy symptoms J30.2 - Other seasonal allergic rhinitis Patient Instructions: - Continue atenolol and simvastatin as prescribed. - Maintain a low-sodium, healthy diet and regular exercise routine. - Administer metformin once daily in the morning for better adherence. - Continue venlafaxine for anxiety and depression. - Perform fasting lipid panel blood work before next visit. Fast for 10-12 hours, may drink water only. - Schedule follow-up appointment in three months for hypertension, diabetes, anxiety, and depression. - Contact the office for any concerns or if symptoms worsen. Patient was informed and verbally consented to the use of an ambient scribe for clinic note documentation during this visit.
[2024-02-17 09:02] VITALS: BP 136/68; PULSE 77; RESP 16; TEMP 36.7; O2SAT 99; BMI 30.3
== END 2024-02-17 09:23 | disposition home or self-care (01) ==
PROVIDERS: PCP Nurse Practitioner Family; Visit Provider Nurse Practitioner Family
DX: I10 Essential (primary) hypertension (principal); E11.9 Type 2 diabetes mellitus without complications; F41.9 Anxiety disorder, unspecified; F32.A Depression, unspecified; Z13.9 Encounter for screening, unspecified

== ENCOUNTER → 2024-02-17 08:44 | Outpatient (BNVA) | payer MEDICARE, SELFPAY | PROVIDERS: PCP Nurse Practitioner Family; Visit Provider Nurse Practitioner Family | DX: I10 Essential (primary) hypertension (principal); E11.9 Type 2 diabetes mellitus without complications; F41.9 Anxiety disorder, unspecified; F32.A Depression, unspecified | CPT/HCPCS: 83036; 96127; 99212 ==

== ENCOUNTER 2024-05-11 07:48 | Outpatient (REF) | payer MEDICARE, SELFPAY ==
[2024-05-11 09:02] LABS: Cholesterol 146 mg/dL (<200); HDL Cholesterol 50 mg/dL (>40); LDL Cholesterol Calculated 71 mg/dL (<100); Triglycerides 127 mg/dL (<150)
== END 2024-05-11 07:49 | disposition home or self-care (01) ==
LOC: HO.LAB 07:48
PROVIDERS: PCP Nurse Practitioner Family; Visit Provider Nurse Practitioner Family
DX: E11.9 Type 2 diabetes mellitus without complications (principal)
CPT/HCPCS: 36415; 80061

== ENCOUNTER 2024-05-21 09:01 | Outpatient (AMB) | payer MEDICARE, SELFPAY ==
[2024-05-21 09:05] VITALS: BP 118/62; PULSE 64; RESP 16; TEMP 36.8; O2SAT 100; BMI 30.6
--- NOTE | 2024-05-21 09:05 | A.OFFPC_ITS ---
Vital Signs 05/21/24 09:05 Height 5 ft 4 in Weight 178 lb BMI 30.6 BP 118/62 Blood Pressure Location Lt brachial Position Sitting Respiration 16 Pulse 64 Pulse Source Pulse Oximeter Temp 98.2 F Temp Source Oral Pulse Oximetry (%) 100 Intake Visit Reasons: HTN, DM, anxiety, depression Intake Note: patient here for follow up on HTN, DM, anxiety and depression. Chief Of Surgery Required: No Is last menstrual period known: No Post menopausal: No Patient : No Allergies codeine Allergy (Severe, Verified 05/21/24 09:31) Codeine Sulfate- HIVES Seasonal Allergies Allergy (Intermediate, Verified 05/21/24 09:31) Runny Nose latex Adverse Reaction (Mild, Verified 05/21/24 09:31) Rash Medication List - Last Reconciled 05/21/24 by Francisco Schrader CNP amlodipine 5 mg PO DAILY atenolol 50 mg PO DAILY calcium carb, citrate-vit D3 600 mg-12.5 mcg (500 unit) ER (Citracal-D3 Slow Release) tabs PO cetirizine (Zyrtec) 10 mg PO DAILY [flaxseed oil ] fluticasone propionate 50 mcg/actuation (Allergy Relief (fluticasone)) 2 sprays intranasal DAILY PRN hydrochlorothiazide 25 mg PO DAILY metformin 500 mg PO .QDWMEAL 90 days [Ocuvite ] rosuvastatin 20 mg PO BEDTIME trazodone 50 mg PO BEDTIME PRN 30 days venlafaxine ER (Effexor XR) 75 mg PO QAM 30 days [Vitamin D3 2,000 PO DAILY] Tobacco use date assessed: 05/21/24 Fall risk assessment: 1 Fall in past year Last assessed Fall Risk: 05/21/24 Dental Screening Dental Screen Date: 05/21/24 Did you have a dental visit in the last 12 months?: No Did you have a dental problem in the last 6 months where you did not have access to dental care?: No Was dental information given to patient?: Patient declined HPI HPI Comments History of Present Illness Details 73-year-old female presents for hyperten chay, diabetes, anxiety, and depression follow-up. She admits to taking her medications as prescribed without adverse reactions. She reports controlled anxiety and depressive symptoms. She generally sleeps well. She states that she has not had a colonoscopy since she was referred to [facility] in 06/2023; they canceled her appointments 5 times. She notes that her sister has history of colon cancer. She offers no complaints and denies acute symptoms at this time. [facility] Medical History Obesity History of benign schwannoma Arthritis Back pain Diverticulitis Diabetes mellitus type 2, diet-controlled Depression Elevated cholesterol Hypertension Surgical History History of surgery History of colonoscopy History of bowel resection Family History Family/Other Chronic mental illness Son In good health Son In good health Daughter In good health Lupus Mother Alzheimer disease Sister Colon cancer Other Mental health disorder Social History Household Members: Family Both parents involved: No Caregiver staying overnight: No Housing: House Are you a primary child care nurse to a significant other at home: No Do you presently have visiting nurse or other home services: No 75 years or older and lives alone: No Patient Tobacco Use Status: Former Tobacco user e-Cigarette/Vaping Use: Never Used Second Hand Smoke Exposure: No service: No Current occupational status: retired Current occupational exposures/hazards: No Cognitive needs: No Hearing needs: Yes Vision needs: Yes Questionnaire PHQ-9 Over the last 2 weeks, how often have you been bothered by any of the following problems? 1. Little interest or pleasure in doing things: not at all 2. Feeling down, depressed, or hopeless: not at all 3. Trouble falling or staying asleep, or sleeping too much: several days 4. Feeling tired or having little energy: not at all 5. Poor appetite or overeating: not at all 6. Feeling bad about yourself - or that you are a failure or have let yourself or your family down: not at all 7. Trouble concentrating on things, such as reading the newspaper or watching television: not at all 8. Moving or speaking so slowly that other people could have noticed. Or the opposite - being so fidgety or restless that you have been moving around a lot more than usual: not at all 9. Thoughts that you would be better off or of hurting yourself in some way: not at all Total score: 1 Depression Screening Interpretation: Negative Depression Screening Done: Yes 83667 - PHQ-9 Billing: Yes Source: Developed by Drs. William Haji, Kristy Baker, Jeffrey Duran and colleagues, with an educational aranza from [employer]. Thrive Questionnaire Date Thrive assessed: 05/21/24 I am a: Patient What is your living situation today?: I have a steady place to live Within the past 12 months, did the food you bought not last and you didn't have the money to get more?: Never true Within the past 12 months, did you worry whether your food would run out before you got money to buy more?: Never true Do you have trouble paying for medicines?: No Do you have trouble getting transportation to medical appointments?: No Do you have trouble paying your heating and electricity bill?: No Do you have trouble taking care of your child, family member or friend?: No Do you have trouble with day-to-day activities such as bathing, preparing meals, shopping, managing finances, etc.?: No Are you currently unemployed and looking for a job?: No Are you interested in more education?: No Please select the resources that you would like help with: None Currently or been in a relationship where the following occur: No concerns repor jose THRIVE Score: 0 AUDIT C Alcohol Use Questionnaire (AUDIT-C) 1. How often do you have a drink containing alcohol?: Never 3. How often do you have six or more drinks on one occasion?: Never Total Score: 0 AASHISH-7 AMB Questionnaire AASHISH-7 Date AASHISH - 7 assessed: 05/21/24 Feeling nervous, anxious, or on edge: 1 = Several days Not being able to stop or control worryin = Several days Worrying too much about different things: 0 = Not at all Trouble relaxin = Several days Being so restless that it is hard to sit still: 0 = Not at all Becoming easily annoyed or irritable: 0 = Not at all Feeling afraid as if something awful might happen: 1 = Several days Total AASHISH-7 score (0-4 normal; 5-9 mild; 10-14 moderate; 15-21 severe): 4 Source: Developed by Drs. William Haji, Kristy Baker, Jeffrey Duran and colleagues, with an educational aranza from [employer] AASHISH-7 Assessment Billing AASHISH-7 Assessment Tool: AASHISH-7 Assessment 85017 Review of Systems Const Details: Const Denies chills, Denies fatigue, Denies fever(s), Denies headache(s) and Denies weakness ENT Denies dizziness and Denies headache(s) Card Denies chest pain, Denies lightheadedness, Denies dyspnea and Denies other (Palpitations) Resp Denies cough, Denies dyspnea, Denies wheezing and Denies other ( shortness of breath) GI Denies abdominal pain, Denies melena, Denies hematochezia, Denies change in bowel habits, Denies dyspepsia and Denies nausea Denies hematuria and Denies dysuria Musc Denies abnormal gait, Denies myalgias, Denies arthralgias, Denies numbness and Denies tingling Skin/Breast Denies rash, Denies unusual bruising and Denies wounds Neuro Denies abnormal gait, Denies dizziness, Denies headache(s), Denies memory loss, Denies numbness, Denies Sensory deficit (Neuro), Denies tingling and Denies weakness Psych Denies anxiety, Denies depression, Denies memory loss Endo Denies cold intolerance, Denies fatigue, Denies heat intolerance, Denies polydipsia and Denies polyuria Aller/Immun Denies wheezing Physical exam (Primary Care) Vital Signs: Last Vital Signs Temp 98.2 F 05/21/24 09:05 Pulse 64 05/21/24 09:05 Resp 16 05/21/24 09:05 BP 118/62 05/21/24 09:05 Pulse Ox 100 05/21/24 09:05 BMI result Body Mass Index 30.6 Tobacco/Smoking Status: Tobacco use Status Tobacco use date assessed 05/21/24 05/21/24 09:15 Patient Tobacco Use Status Former Tobacco user 05/21/24 09:08 e-Cigarette/Vaping Use Never Used 05/21/24 09:08 PHQ-9: PHQ-9 Score PHQ-9: Total score 1 05/21/24 09:15 Depression Screening Interpretation: Negative Thrive Assessment: Date of Thrive Assessment Date Thrive assessed 05/21/24 05/21/24 09:15 Currently or been in a relationship where the following occur: No concerns reported Const Other: General: no acute distress and well developed Nutritional Appearance: well nourished Orientation/consciousness: patient oriented x3 [facility] Head: Yes normocephalic and Yes atraumatic Eyes General: appearance normal, both eyes and all related structures Pupils: Equal, round and reactive pupils present EOM: EOMs intact bilaterally Resp Effort & Inspection: normal respiratory effort Auscultation: clear to auscultation bilaterally Cardio Rate: regular rate Rhythm: regular rhythm Heart sounds: S1 normal heart sound present, S2 normal heart sound present, no gallops, no murmurs and no rubs GI Palpation (GI): No Abdominal aortic bruit present, Soft to palpation, nontender, No hepatosplenomegaly present and No Rebound tenderness present Auscultation: normal bowel sounds General: Yes no CVA tenderness Back/Spine/Pelvis Back: no CVA tenderness Cervical Spine: cervical ROM normal and No Cervical spine tenderness Thoracic/Lumbar Spine: thoraco-lumbar ROM normal, No pain with thoraco-lumbar ROM, No thoracic spinal tenderness and No lumbar spinal tenderness Extrem General: Yes normal to inspection, No edema and No calf tenderness Skin General: warm and dry. Normal skin color. Normal skin turgor Neuro General: patient oriented x3, gait normal and no focal neuro deficit Cranial nerves: Yes Equal, round and reactive pupils present Cognition (Neuro): normal cognition Gait exam (Neuro): Normal gait present Sensory Exam: No Sensory deficit (Neuro) Psych Appearance: grossly normal Affect: normal affect Attitude: cooperative Thought process: Normal thought process present Results AMB Hemoglobin A1c 2 AMB Hemoglobin A1c 5.4 % Last Edit by Nkechi Odell on 05/21/24 09:28 Results Reviewed Results Reviewed: Laboratory Last Values Hgb A1c (Clinic) 5.4 % (4.0-6.0) 05/21/24 09:20 Coding Level of Care Code Est Pt Level 3 (72968) Diagnoses Primary hypertension I10 Hypertension type: primary hypertension Type 2 diabetes mellitus E11.9 Major depressive disorder F32.9 Generalized anxiety disorder F41.1 Colon cancer screening Z12.11 Elevated cholesterol E78.00 Laboratory tests ordered as part of a complete physical exam (CPE) Z00.00 Additional Codes AASHISH-7 Assessment Billing - AASHISH-7 Assessment Tool: AASHISH-7 Assessment 02097 ([id number]) PHQ-9 - 13511 - PHQ-9 Billing: Yes ([id number]) Assessment & Plan Assessment & Plan (1) Hypertension: Code(s): I10 - Essential (primary) hypertension Category: Medical Qualifiers: Hypertension type: primary hypertension Qualified Code(s): I10 - Essential (primary) hypertension Plan: Blood pressure today is 118/62, within goal of less than 130/80. Continue current treatment regimen. Advised to perform lab work before next visit. Follow-up in 6 weeks for an extended physical exam. Return sooner with symptoms or concerns. Verbalized understanding and agreed with the plan. (2) Type 2 diabetes mellitus: Code(s): E11.9 - Type 2 diabetes mellitus without complications Category: Medical Plan: A1c today is 5.4%, within goal of less than 7.0%. Previous A1c is 5.5%. Continue current treatment regimen. Will recheck A1c in 3 months. Verbalized understanding and agreed with treatment plan. (3) Major depressive disorder: Code(s): F32.9 - Major depressive disorder, single episode, unspecified Category: Medical Plan: Controlled anxiety and depressive symptoms. She generally sleep well. Continue current treatment regimen. Routine exercise encouraged. Follow-up with symptoms or concerns. Verbalized understanding and agreed with the plan. (4) Generalized anxiety disorder: Code(s): F41.1 - Generalized anxiety disorder Category: Medical Plan: Plan as above. (5) Colon cancer screening: Code(s): Z12.11 - Encounter for screening for malignant neoplasm of colon Category: Medical Plan: She has not had a colonoscopy since she was referred to [facility] in 06/2023; they canceled her appointments 5 times. Her sister has history of colon cancer. (6) Elevated cholesterol: Code(s): E78.00 - Pure hypercholesterolemia, unspecified Category: Medical Plan: Recent lipid panel level is normal. LDL is 71, within goal of less than 100. Continue current treatment regimen. Will continue to monitor. Verbalized understanding and agreed with the plan. (7) Laboratory tests ordered as part of a complete physical exam (CPE): Code(s): Z00.00 - Encounter for general adult medical examination without abnormal findings Category: Medical Plan: Fasting labs ordered as part of a complete physical exam. Advised to fast for at least 10 hours before getting labs drawn. May drink water Verbalized understanding and agreed with treatment plan. Orders: Orders AMB Hemoglobin A1c 05/21/24 Z13.9 - Encounter for screening, unspecified TSH reflex Free T4 05/21/24 Z00.00 - Encounter for general adult medical examination without abnormal findings UA CC w/rflx Micro + Cult 05/21/24 Z00.00 - Encounter for general adult medical examination without abnormal findings Complete Blood Count Auto Diff 05/21/24 Z00.00 - Encounter for general adult medical examination without abnormal findings Comprehensive [place]. Panel Fast 05/21/24 Z00.00 - Encounter for general adult medical examination without abnormal findings Vitamin D 25-OH Total 05/21/24 Z00.00 - Encounter for general adult medical examination without abnormal findings
== END 2024-05-21 09:42 | disposition home or self-care (01) ==
PROVIDERS: PCP Nurse Practitioner Family; Visit Provider Nurse Practitioner Family
DX: Z13.9 Encounter for screening, unspecified (principal)

== ENCOUNTER → 2024-05-21 09:01 | Outpatient (BNVA) | payer MEDICARE, SELFPAY | PROVIDERS: PCP Nurse Practitioner Family; Visit Provider Nurse Practitioner Family | DX: I10 Essential (primary) hypertension (principal); E11.9 Type 2 diabetes mellitus without complications; F32.9 Major depressive disorder, single episode, unspecified; F41.1 Generalized anxiety disorder | CPT/HCPCS: 83036; 96127; 99212 ==

== ENCOUNTER 2024-06-27 13:33 | Outpatient (AMB) | payer MEDICARE, SELFPAY ==
--- NOTE | 2024-06-27 13:35 | MHC.OFFVIS ---
Vital Signs 06/27/24 13:48 Height 5 ft 4 in Weight 184 lb 4.903 oz BMI 31.6 BP 126/64 Blood Pressure Location Rt brachial Position Sitting Pulse 68 Pulse Source Pulse Oximeter Pulse Oximetry (%) 97 Oxygen Delivery Method Room Air Intake Visit Reasons: [place] Screening 3rd r/s from us please do not move Intake Note: NEW PATIENT for colo screening repeat. Screened once by [facility]. Last colo w/ 2019. Chief Complaint; C/O increased gas and bloating, generalized abd pain (however per baseline per pt). Pt has hx of diverticulitis w/ resection. Extensive FMHx of CRC. No additional concerns at this time. Qi Specialist Required: No Accompanied by: Self / Same As Patient Allergies codeine Allergy (Severe, Verified 06/27/24 13:38) Codeine Sulfate- HIVES Seasonal Allergies Allergy (Intermediate, Verified 06/27/24 13:38) Runny Nose latex Adverse Reaction (Mild, Verified 06/27/24 13:38) Rash HPI HPI [place] Screening 3rd r/s from us please do not move: Details: LAST VISIT: Findings: Terminal Ileum-normal Cecum:normal Ascending Colon: x 2 sessile polyps removed with cold snare, measured about 8-10 mm each, one site was oozing -x 2 clips applied with cessation Transverse Colon -normal Descending Colon:diverticulosis noted Sigmoid Colon: end to end anastomosis noted from prior surgery Rectum: Retroflexion with small internal hemorrhoids, grade I, sessile polyp 8-9 mm removed with cold snare Anorectum - normal Colon preparation: [place] Bowel Preparation Scale Right colon; 3 Transverse colon: 2 Left colon; 2 (0 = Unprepared colon segment with mucosa not seen due to solid stool that cannot be cleared. 1 = Portion of mucosa of the colon segment seen, but other areas of the colon segment not well seen due to staining, residual stool and/or opaque liquid. 2 = Minor amount of residual staining, small fragments of stool and/or opaque liquid, but mucosa of colon segment seen well. 3 = Entire mucosa of colon segment seen well with no residual staining, small fragments of stool or opaque liquid) Impression and Post Procedure Diagnosis: internal hemorrhoids polyps diverticulosis Plan: High fiber diet leaflet Avoid straining at stool, epsom salts and sitz bath, anusol supps or cream prn Repeat Colonoscopy in 3-5 years pending path or earlier if clinically indicated PATHOLOGY RESULTS Diagnosis A. Colon, ascending polypectomy: Fragments of tubular adenoma; no high grade dysplasia or carcinoma seen. B. Rectum, polypectomy: Hyperplastic mucosal polyp TODAY'S VISIT Patient is due to go for colonoscopy. Patient reports that her sister was diagnosed with colorectal cancer last year, undergone chemotherapy and radiation. Currently she has ileostomy and is going for reversal. Patient reports occasional her stools college GI complications interventional script again. History denies melena, hematochezia, unintentional weight loss or ribbon like stools. Denies any issues with anesthesia in the past. No history of sleep apnea. Not on any anticoagulation medication. Denies any cardiac or respiratory symptoms. Last colonoscopy in 2019 showed 1 hyperplastic polyp in 1 tubular adenoma without high-grade dysplasia or carcinoma. [facility] Medical History (Updated 06/27/24 @ 14:33 by Indira Corey, [facility]) Family history of colorectal cancer Obesity History of benign schwannoma Arthritis Back pain Diverticulitis Diabetes mellitus type 2, diet-controlled Depression Elevated cholesterol Hypertension Surgical History History of surgery History of colonoscopy History of bowel resection Family History Family/Other Chronic mental illness Son In good health Son In good health Daughter In good health Lupus Mother Alzheimer disease Sister Colon cancer Other Mental health disorder Social History Household Members: Family Both parents involved: No Caregiver staying overnight: No Housing: House Are you a primary career advisor to a significant other at home: No Do you presently have visiting nurse or other home services: No 75 years or older and lives alone: No Patient Tobacco Use Status: Former Tobacco user e-Cigarette/Vaping Use: Never Used Second Hand Smoke Exposure: No service: No Current occupational status: retired Current occupational exposures/hazards: No Cognitive needs: No Hearing needs: Yes Vision needs: Yes Review of Systems Const Denies weight gain and Denies weight loss ENT Reports no additional complaints, Denies dysphagia and Denies odynophagia Card Reports no additional complaints Resp Reports no additional complaints GI Reports abdominal pain, Denies belching, Denies melena, Denies bloating, Denies change in bowel habits, Reports constipation, Denies dysphagia, Denies excessive flatus, Denies dyspepsia, Denies heartburn, Denies diarrhea, Reports loose stools, Denies nausea, Denies odynophagia and Denies vomiting Reports no additional complaints Musc Reports no additional complaints Neuro Reports no additional complaints Psych Reports no additional complaints Endo Reports no additional complaints Physical Exam Vital Signs: Last Vital Signs Pulse 68 06/27/24 13:48 BP 126/64 06/27/24 13:48 Pulse Ox 97 06/27/24 13:48 Oxygen Delivery Method Room Air 06/27/24 13:48 BMI result Body Mass Index 31.6 Const General: healthy appearing and no acute distress Nutritional Appearance: obese Orientation/consciousness: patient oriented x3 Resp Effort & Inspection: normal respiratory effort, able to speak in complete sentences, no tracheal deviation and symmetric chest movement Auscultation: clear to auscultation bilaterally Cardio Rate: regular rate GI Inspection: Yes normal to inspection, No distended and Yes obesity Palpation (GI): Soft to palpation, not firm, nontender and No hepatosplenomegaly present Auscultation: normal bowel sounds General: Yes no CVA tenderness Back/Spine/Pelvis Back: no CVA tenderness Skin General skin exam: elasticity normal, turgor normal and dry skin Neuro General: patient oriented x3 Psych Appearance: grossly normal Mental Status: mental status grossly normal Assessment & Plan Assessment & Plan (1) Colon cancer screening: Code(s): Z12.11 - Encounter for screening for malignant neoplasm of colon Category: Medical (2) Tubular adenoma of colon: Code(s): D12.6 - Benign neoplasm of colon, unspecified Category: Medical (3) Family history of colorectal cancer: Code(s): Z80.0 - Family history of malignant neoplasm of digestive organs Category: Medical (4) Postprandial diarrhea: Code(s): K52.9 - Noninfective gastroenteritis and colitis, unspecified (5) Constipation: Code(s): K59.00 - Constipation, unspecified Qualifiers: Constipation type: slow transit constipation Qualified Code(s): K59.01 - Slow transit constipation Plan Patient denies any cardiac or respiratory symptoms.? Denies any issues with anesthesia in the past.? Denies any history of sleep apnea.? No history infectious diseases in the past or present.? Not on any anticoagulation therapy.? Patient's sister diagnosed with colorectal cancer last year. Patient reports occasional loose stools then constipation and then stools again depending on what she eats. Patient will start taking fiber to help her bulk stools and will take Dulcolax as needed. Patient denies melena, hematochezia, unintentional weight loss or ribbon like stools.? Discussed at length the pre-procedure,? prep, diet & medications as well as what to expect prior, during and after the procedure.?? Stressed the importance of good bowel prep.? Recommended the use of Vaseline or Calmoseptine OTC & baby wipes with bowel movements to promote comfort.? ?Patient verbalizes understanding and agrees to plan of care.? She was given the opportunity to ask questions and all questions answered.? We will see her after the procedure.? Medications: New polyethylene glycol 3350 (Miralax) As directed by gastroenterology department at [facility] 238 grams PO ONCE 238 grams 0RF Z12.11 - Encounter for screening for malignant neoplasm of colon bisacodyl (Dulcolax (bisacodyl)) 10 mg (2 x 5 mg) PO BEDTIME PRN 60 tabs 4RF constipation Coding Level of Care Code New Pt Level 4 (96210) Diagnoses Colon cancer screening Z12.11 Tubular adenoma of colon D12.6 Family history of colorectal cancer Z80.0 Postprandial diarrhea K52.9 Slow transit constipation K59.01 Constipation type: slow transit constipation Time Spent (min) 45 Comment 30 minutes spent with patient and additional 15 minute spent reviewing her record
[2024-06-27 13:48] VITALS: BP 126/64; PULSE 68; O2SAT 97; BMI 31.6
== END 2024-06-27 14:46 | disposition home or self-care (01) ==
LOC: HO.HGI 13:34
PROVIDERS: PCP Nurse Practitioner Family; Visit Provider Nurse Practitioner Family
DX: K52.9 Noninfective gastroenteritis and colitis, unspecified (principal); K59.01 Slow transit constipation; Z12.11 Encounter for screening for malignant neoplasm of colon; Z86.0101 Personal history of adenomatous and serrated colon polyps; Z80.0 Family history of malignant neoplasm of digestive organs
CPT/HCPCS: 99204

== ENCOUNTER → 2024-06-27 13:33 | Outpatient (BNVA) | payer MEDICARE, SELFPAY | PROVIDERS: PCP Nurse Practitioner Family; Visit Provider Nurse Practitioner Family | DX: Z12.11 Encounter for screening for malignant neoplasm of colon (principal); K52.9 Noninfective gastroenteritis and colitis, unspecified; K59.01 Slow transit constipation; D12.6 Benign neoplasm of colon, unspecified; Z80.0 Family history of malignant neoplasm of digestive organs | CPT/HCPCS: 99202 ==

== ENCOUNTER 2024-07-23 08:22 | Outpatient (REF) | payer MEDICARE, SELFPAY ==
[2024-07-23 08:42] LABS: MANUAL DIFF FLAG NO
[2024-07-23 09:10] LABS: Basophils Absolute Auto 0.1 X10*3/uL (0.0-0.2); Eosinophils Absolute Auto 0.3 X10*3/uL (0.0-0.4); Eosinophils Percent Auto 4.4 % (0-4); Hematocrit 41.5 % (37.0-47.0); Hemoglobin 13.5 g/dl (12.0-16.0); Imm Gran Abs Auto 0.01 X10*3/uL (0.00-0.03); Imm Gran Pct Auto 0.2 % (0.0-0.4); Lymphocytes Percent Auto 33.8 % (20-40); Mean Corpuscular HGB Conc 32.5 g/dl (31.0-35.0); Mean Corpuscular Volume 89.2 fL (80.0-98.0); Mean Platelet Volume 9.9 fL (9.4-12.3); Monocytes Absolute Auto 0.4 X10*3/uL (0.1-1.2); Neutrophils Absolute Auto 3.2 x10*3/uL (2.0-8.3); Neutrophils Percent Auto 53.6 % (45-73); Platelet Count 294 X10*3/uL (160-400); Red Blood Count 4.65 X10*6/uL (4.20-5.50); Red Cell Distribution Width 13.2 % (11.0-16.0); White Blood Count 5.9 X10*3/uL (4.8-10.8)
[2024-07-23 09:24] LABS: Appearance Urine Clear; Color Urine Yellow; Glucose Urine UA Negative (Negative); Leukocyte Esterase Urine Negative (Negative); Nitrite Urine Negative (Negative); Specific Gravity - Urine >= 1.030 (1.005-1.025); Urine Blood Negative (Negative); Urine Ketones Negative (Negative); Urine Protein Negative (Neg-Trace)
[2024-07-23 09:48] LABS: Alanine Aminotransferase 22 U/L (0-31); Albumin Level 4.3 g/dL (3.5-5.0); Alkaline Phosphatase 52 U/L (39-117); Anion Gap 13 (12-20); Aspartate Amino Transferase 22 U/L (5-31); Bilirubin Total 0.5 mg/dL (0.0-1.0); Blood Urea Nitrogen 13 mg/dL (9-16); Calcium 9.7 mg/dL (8.4-10.2); Carbon Dioxide 29 mmol/L (22-29); Chloride 106 mmol/L (96-108); Estimated Glomerular Filt Rate > 60; Glucose Fasting 117 mg/dL (60-99); Potassium 4.4 mmol/L (3.3-5.1); Sodium 144 mmol/L (135-145); Total Protein 6.8 g/dL (6.5-8.0)
[2024-07-23 10:12] LABS: TSH reflex Free T4 0.88 uIU/mL (0.32-4.0); Vitamin D 25-OH Total 42.2 ng/mL (>30)
== END 2024-07-23 08:23 | disposition home or self-care (01) ==
LOC: HO.LAB 08:22
PROVIDERS: PCP Nurse Practitioner Family; Visit Provider Nurse Practitioner Family
DX: Z00.00 Encounter for general adult medical examination without abnormal findings (principal)
CPT/HCPCS: 36415; 80053; 81003; 82306; 84443; 85025

== ENCOUNTER 2024-07-26 10:28 | Outpatient (AMB) | payer MEDICARE, SELFPAY ==
--- NOTE | 2024-07-26 10:37 | MHC.PC.OV ---
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 Scientist Required: No Allergies codeine Allergy (Severe, Verified 07/26/24 10:38) Codeine Sulfate- HIVES Seasonal Allergies Allergy (Intermediate, Verified 07/26/24 10:38) Runny Nose latex Adverse Reaction (Mild, Verified 07/26/24 10:38) Rash Medication List - Last Reconciled 07/26/24 by Diana Rivera PA-C amlodipine 5 mg PO DAILY atenolol 50 mg PO DAILY calcium carb, citrate-vit D3 600 mg-12.5 mcg (500 unit) ER (Citracal-D3 Slow Release) tabs PO cetirizine (Zyrtec) 10 mg PO DAILY [flaxseed oil ] fluticasone propionate 50 mcg/actuation (Allergy Relief (fluticasone)) 2 sprays intranasal DAILY PRN hydrochlorothiazide 25 mg PO DAILY metformin 500 mg PO DAILY [Ocuvite ] rosuvastatin 20 mg PO BEDTIME trazodone 50 mg PO BEDTIME PRN 30 days venlafaxine ER (Effexor XR) 75 mg PO QAM 30 days Tobacco use date assessed: 07/26/24 Fall risk assessment: 2 + Falls in past year (3-4) Last assessed Fall Risk: 07/26/24 Dental Screening Dental Screen Date: 05/21/24 HPI CPE - see comments HPI Details Patient is a 73-year-old female who presents today for a physical exam. She normally follows with Mr. Schrader. She has a significant past medical history of hyperlipidemia, hypertension, type 2 diabetes well-controlled , anxiety, depression and insomnia and osteoporosis. Psych: States well-controlled with the venlafaxine 75 mg daily and the trazodone 50 mg at bedtime. States that she is having a lot more stress recently with the political climate. She is very upset and is frustrated that there is not a lot she can do to change anything. CV: Blood pressure today in the office is 122/64. She is currently on amlodipine 5 mg daily, atenolol 50 mg daily and hydrochlorothiazide 25 mg daily. Cholesterol is managed with Crestor 20 mg. Last LDL was 71. Endo: Last A1c was 5.4. She is on metformin 500 mg daily. She follows with Dr. La for her osteoporosis. Colonoscopy: Up-to-date, completed this spring 2024 and is pending pathology but we will be due in 3-5 years. 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 [facility] Medical History (Updated 07/26/24 @ 10:45 by Diana Rivera PA-C) Family history of colorectal cancer Obesity History of benign schwannoma Arthritis Back pain Diverticulitis Diabetes mellitus type 2, diet-controlled Depression Elevated cholesterol Hypertension Surgical History History of surgery History of colonoscopy History of bowel resection Family History Family/Other Chronic mental illness Son In good health Son In good health Daughter In good health Lupus Mother Alzheimer disease Sister Colon cancer Other Mental health disorder Social History Household Members: Family Both parents involved: No Caregiver staying overnight: No Housing: House Are you a primary technical healthcare consultant to a significant other at home: No Do you presently have visiting nurse or other home services: No 75 years or older and lives alone: No Patient Tobacco Use Status: Former Tobacco user e-Cigarette/Vaping Use: Never Used Second Hand Smoke Exposure: No service: No Current occupational status: retired Current occupational exposures/hazards: No Cognitive needs: No Hearing needs: Yes Vision needs: Yes Questionnaire Thrive Questionnaire Date Thrive assessed: 05/18/24 I am a: Patient What is your living situation today?: I have a steady place to live Within the past 12 months, did the food you bought not last and you didn't have the money to get more?: Never true Within the past 12 months, did you worry whether your food would run out before you got money to buy more?: Never true Do you have trouble paying for medicines?: No Do you have trouble getting transportation to medical appointments?: No Do you have trouble paying your heating and electricity bill?: No Do you have trouble taking care of your child, family member or friend?: No Do you have trouble with day-to-day activities such as bathing, preparing meals, shopping, managing finances, etc.?: No Are you currently unemployed and looking for a job?: No Are you interested in more education?: No Please select the resources that you would like help with: None Currently or been in a relationship where the following occur: No concerns reported THRIVE Score: 0 AUDIT C Alcohol Use Questionnaire (AUDIT-C) 1. How often do you have a drink containing alcohol?: Never 3. How often do you have six or more drinks on one occasion?: Never Total Score: 0 AASHISH-7 AMB Questionnaire AASHISH-7 Date AASHISH - 7 assessed: 05/21/24 Source: Developed by Drs. William Haji, Kristy Baker, Jeffrey Duran and colleagues, with an educational aranza from [employer]. Physical exam (Primary Care) Tobacco/Smoking Status: Tobacco use Status Tobacco use date assessed 05/21/24 05/21/24 09:15 Patient Tobacco Use Status Former Tobacco user 05/21/24 09:08 e-Cigarette/Vaping Use Never Used 05/21/24 09:08 Thrive Assessment: Date of Thrive Assessment Date Thrive assessed 05/18/24 06/27/24 13:34 Currently or been in a relationship where the following occur: No concerns reported Const Orientation/consciousness: patient oriented x3 HENMT Ears: hearing grossly normal bilaterally and TM's normal bilaterally General nose exam: No nasal polyps present Face and sinus: Yes sinuses nontender Mouth: Normal oral and palatal mucosa present Eyes Pupils: Equal, round and reactive pupils present EOM: EOMs intact bilaterally Neck Neck: Yes full ROM and Yes no lymphadenopathy Thyroid: Thyroid normal Chest Chest palpation & inspection: normal inspection of the chest Resp Auscultation: clear to auscultation bilaterally Cardio Rate: regular rate Rhythm: regular rhythm Heart sounds: S1 normal heart sound present and S2 normal heart sound present Peripheral pulses: Peripheral pulses 2+ throughout GI Other: Soft, nontender Auscultation: normal bowel sounds Rectal Exam - Female: deferred General: Yes no CVA tenderness Back/Spine/Pelvis Other: Nontender Back: no CVA tenderness Skin General skin exam: no rashes or lesions noted Neuro General: patient oriented x3, gait normal, CN's II-XI intact bilaterally and deep tendon reflexes 2+ bilaterally Cranial nerves: Yes Equal, round and reactive pupils present Motor exam (neuro): 5/5 motor strength present throughout Sensory Exam: double simultaneous stimulation for sensation normal Coordination: [id number] test normal and Romberg test negative Extrem General: Yes normal to inspection and Yes full ROM Psych Affect: normal affect Attitude: cooperative Thought process: Normal thought process present Thought content: Normal thought content present Insight: Good insight present (Psych) Judgement: Good judgement present (Psych) Results Reviewed Results Reviewed: Plan: High fiber diet leaflet Avoid straining at stool, epsom salts and sitz bath, anusol supps or cream prn Repeat Colonoscopy in 3-5 years pending path or earlier if clinically indicated Bone Density: Osteoporosis Laboratory Tests 05/21/24 07/23/24 09:20 08:41 WBC 5.9 RBC 4.65 Hgb 13.5 Hct 41.5 Plt Count 294 Sodium 144 Potassium 4.4 Chloride 106 Carbon Dioxide 29 Anion Gap 13 BUN 13 Creatinine 0.67 Estimated GFR > 60 Fasting Glucose 117 H Hgb A1c (Clinic) 5.4 Calcium 9.7 Total Bilirubin 0.5 AST 22 ALT 22 Alkaline Phosphatase 52 Laboratory Tests 05/11/24 07:58 Triglycerides 127 Cholesterol 146 LDL Cholesterol, Calc 71 HDL Cholesterol 50 Coding Level of Care Code Est Pt Prev Care >65y(02141) Diagnoses Routine general medical examination at a health care facility Z00.00 Well controlled type 2 diabetes mellitus E11.9 Anxiety and depression F41.9; F32.A Primary hypertension I10 Hypertension type: primary hypertension HLD (hyperlipidemia) E78.5 Assessment & Plan Assessment & Plan (1) Routine general medical examination at a health care facility: Code(s): Z00.00 - Encounter for general adult medical examination without abnormal findings 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 Continue this (3) Anxiety and depression: Code(s): F41.9 - Anxiety disorder, unspecified; F32.A - Depression, unspecified Category: Medical Plan: Overall controlled. Continue current regimen (4) Hypertension: Code(s): I10 - Essential (primary) hypertension Category: Medical Qualifiers: Hypertension type: primary hypertension Qualified Code(s): I10 - Essential (primary) hypertension Plan: wnl continue current plan (5) HLD (hyperlipidemia): Code(s): E78.5 - Hyperlipidemia, unspecified Category: Medical Plan: LDL at goal. Continue current regimen Orders: Orders Microalbumin, Random (w Creat) Today E11.9 - Type 2 diabetes mellitus without complications, E78.5 - Hyperlipidemia, unspecified, I10 - Essential (primary) hypertension Comprehensive Anderson. Panel Fast Today E11.9 - Type 2 diabetes mellitus without complications, E78.5 - Hyperlipidemia, unspecified, I10 - Essential (primary) hypertension Hemoglobin A1c Today E11.9 - Type 2 diabetes mellitus without complications, E78.5 - Hyperlipidemia, unspecified, I10 - Essential (primary) hypertension, R73.01 - Impaired fasting glucose
[2024-07-26 10:42] VITALS: BP 122/64; PULSE 59; RESP 14; O2SAT 98; BMI 32.1
== END 2024-07-26 11:13 | disposition home or self-care (01) ==
LOC: HO.HMCFM 10:29
PROVIDERS: PCP Nurse Practitioner Family; Visit Provider Physician Assistant
DX: Z00.00 Encounter for general adult medical examination without abnormal findings (principal); E11.9 Type 2 diabetes mellitus without complications; F41.9 Anxiety disorder, unspecified; F32.A Depression, unspecified; I10 Essential (primary) hypertension; E78.5 Hyperlipidemia, unspecified

== ENCOUNTER → 2024-07-26 10:28 | Outpatient (BNVA) | payer MEDICARE, SELFPAY | PROVIDERS: PCP Nurse Practitioner Family; Visit Provider Physician Assistant | DX: Z00.00 Encounter for general adult medical examination without abnormal findings (principal); E11.9 Type 2 diabetes mellitus without complications; F41.9 Anxiety disorder, unspecified; F32.A Depression, unspecified; E78.5 Hyperlipidemia, unspecified; I10 Essential (primary) hypertension | CPT/HCPCS: 99397 ==

== ENCOUNTER 2024-08-02 08:44 | Day surgery (SDC) | payer MEDICARE, SELFPAY ==
[2024-07-31 13:33] VITALS: BMI 31.6
--- NOTE | 2024-08-01 09:43 | HO.ANESPROP2 ---
HPI - Anesthesia Eval Consult details Narrative: 73yo F for Colonoscopy PMF Active Problems Active Problems: All Active Problems HLD (hyperlipidemia) (Acute) Well controlled type 2 diabetes mellitus (Acute) Family history of colorectal cancer (Acute) Generalized anxiety disorder (Acute) Chronic pain of right knee (Acute) Sleep disturbance (Acute) Osteoporosis (Acute) Breast cancer screening by mammogram (Acute) Type 2 diabetes mellitus (Acute) Transaminitis (Acute) History of osteopenia (Acute) Colon cancer screening (Acute) Laboratory tests ordered as part of a complete physical exam (CPE) (Acute) Poor sleep (Acute) Major depressive disorder (Acute) Anxiety and depression (Acute) Hypertension (Acute) Elevated blood sugar (Acute) Seasonal allergies (Acute) BMI 35.0-35.9,adult (Acute) Fatigue (Acute) HTN, goal below 140/80 (Acute) Depression (Acute) BMI 37.0-37.9, adult (Acute) Normal physical exam (Acute) Well adult exam (Acute) Elevated cholesterol (Acute) Tubular adenoma of colon (Acute) Past Medical History Medical History (Updated 07/26/24 @ 10:45 by Diana Rivera PA-C) Family history of colorectal cancer Obesity History of benign schwannoma Arthritis Back pain Diverticulitis Diabetes mellitus type 2, diet-controlled Depression Elevated cholesterol Hypertension Family History Family History Family/Other Chronic mental illness Son In good health Son In good health Daughter In good health Lupus Mother Alzheimer disease Sister Colon cancer Other Mental health disorder Surgical History Surgical History History of surgery History of colonoscopy History of bowel resection Social History Social History Household Members: Family Both parents involved: No Caregiver staying overnight: No Housing: House Are you a primary regular senior care provider to a significant other at home: No Do you presently have visiting nurse or other home services: No 75 years or older and lives alone: No Patient Tobacco Use Status: Former Tobacco user e-Cigarette/Vaping Use: Never Used Second Hand Smoke Exposure: No service: No Current occupational status: retired Current occupational exposures/hazards: No Cognitive needs: No Hearing needs: Yes Vision needs: Yes Meds Allergies Allergy/AdvReac Type Severity Reaction Status Date / Time codeine Allergy Severe Codeine Verified 07/26/24 10:38 Sulfate- HIVES Seasonal Allergies Allergy Intermediate Runny Nose Verified 07/26/24 10:38 latex AdvReac Mild Rash Verified 07/26/24 10:38 Home Medications ?Medication ?Instructions ?Recorded ?Confirmed ?Last Taken ?Type Ocuvite 03/06/20 07/26/24 Unknown History flaxseed oil 03/06/20 07/26/24 Unknown History calcium ER 600 mg (as carb,cit)-D3 tab PO 02/17/24 07/26/24 Unknown History 12.5 mcg (500 unit) tablet, ext.rel (Citracal-D3 Slow Release) metformin 500 mg tablet 500 mg PO DAILY 06/27/24 07/26/24 Unknown History Exam Height,Weight and Vital Signs: Height 5 ft 4 in Weight 83.461 kg Assessment and Plan Assessment Anesthesia Assessment: Chart Reviewed
[2024-08-02 09:09] VITALS: BMI 32.1
[2024-08-02] MEDS: Lactated Ringers 1,000 ML 100 ML IVCONT (09:19)
[2024-08-02 09:28] VITALS: BP 107/62; PULSE 66; RESP 18; TEMP 36.7; O2SAT 99
[2024-08-02 09:30] LABS: Glucose, Whole Blood 115 mg/dL (60-115)
--- NOTE | 2024-08-02 10:11 | P.HPSUR_ITS ---
Pre-Procedural Eval Section A - 24 Hr Update-Section A only Date of Service: 08/02/24 Section B - Complete if H&P > 30 days Chief Complaint: Encounter for screening for malignant neoplasm of Relevant Family History (Specify if Yes): Yes Relevant Social History: None Present Medications: see Short Stay Collaborative assessment Medical History: Significant History (Family history of colorectal cancer Obe sity History of benign schwannoma Arthritis Back pain Diverticulitis Diabetes mellitus type 2, diet-controlled Depression Elevated cholesterol Hypertension) History of Previous Operations: Relevant previous surgery/procedure and date(s) (History of surgery History of colonoscopy History of bowel resection) Allergies: Allergies Allergy/AdvReac Type Severity Reaction Status Date / Time codeine Allergy Severe Codeine Verified 08/02/24 09:12 Sulfate- HIVES Seasonal Allergies Allergy Intermediate Runny Nose Verified 08/02/24 09:12 latex AdvReac Mild Rash Verified 07/26/24 10:38 Review of Systems Sugical H&P ROS: Negative: Constitution, Cardiovascular, Respiratory, Neurological, Psychiatric, Hem-Onc, Allergic/Immunologic, Gastrointestinal, Genitourinary, Musculoskeletal, Integumentary, Endocrine and Eyes/Ears/Nose/Throat Exam Surgical H&P Exam: Normal: HEENT, Normal: Heart, Normal: Lungs, Normal: Extremities, Normal: Abdomen, Normal: Skin and Normal: Neurological Plan Diagnosis/Plan: Unchanged I have reviewed the history and physical and performed a pertinent physical examination on my patient. No changes have occurred unless specified. Time Spent With Patient Time: Total time managing care of this patient today ____ minutes.
--- NOTE | 2024-08-02 11:11 | HO.ANESPROP2 ---
[facility] Active Problems Active Problems: All Active Problems HLD (hyperlipidemia) (Acute) Well controlled type 2 diabetes mellitus (Acute) Family history of colorectal cancer (Acute) Generalized anxiety disorder (Acute) Chronic pain of right knee (Acute) Sleep disturbance (Acute) Osteoporosis (Acute) Breast cancer screening by mammogram (Acute) Type 2 diabetes mellitus (Acute) Transaminitis (Acute) History of osteopenia (Acute) Colon cancer screening (Acute) Laboratory tests ordered as part of a complete physical exam (CPE) (Acute) Poor sleep (Acute) Major depressive disorder (Acute) Anxiety and depression (Acute) Hypertension (Acute) Elevated blood sugar (Acute) Seasonal allergies (Acute) BMI 35.0-35.9,adult (Acute) Fatigue (Acute) HTN, goal below 140/80 (Acute) Depression (Acute) BMI 37.0-37.9, adult (Acute) Normal physical exam (Acute) Well adult exam (Acute) Elevated cholesterol (Acute) Tubular adenoma of colon (Acute) Past Medical History Medical History Family history of colorectal cancer Obesity History of benign schwannoma Arthritis Back pain Diverticulitis Diabetes mellitus type 2, diet-controlled Depression Elevated cholesterol Hypertension Functional capacity: independent ambulation Patient : No Family History Family History Family/Other Chronic mental illness Son In good health Son In good health Daughter In good health Lupus Mother Alzheimer disease Sister Colon cancer Other Mental health disorder Family history of problems with anesthesia: No Surgical History Surgical History History of surgery History of colonoscopy History of bowel resection History of Problems with Anesthesia: No Social History Social History Household Members: Family Housing: House Are you a primary career discovery teacher to a significant other at home: No Do you presently have visiting nurse or other home services: No Patient Tobacco Use Status: Former Tobacco user e-Cigarette/Vaping Use: Never Used Second Hand Smoke Exposure: No Have you been hit, kicked, punched, or otherwise hurt by someone within the past year? If so, by whom?: No Are you DNR?: No Advance Directives: No Advance Directives Information Provided: Yes Poor oral hygiene: No service: No Current occupational status: retired Current occupational exposures/hazards: No Cognitive needs: No Hearing needs: Yes Vision needs: Yes Meds Allergies Allergy/AdvReac Type Severity Reaction Status Date / Time codeine Allergy Severe Codeine Verified 08/02/24 09:12 Sulfate- HIVES Seasonal Allergies Allergy Intermediate Runny Nose Verified 08/02/24 09:12 latex AdvReac Mild Rash Verified 07/26/24 10:38 Active Medications: Current Medications Lactated Ringer's (Lr) 1,000 mls @ 100 mls/hr IVCONT .Q10H CHRYSTAL Last Admin: 08/02/24 09:19 Dose: 100 mls/hr Home Medications ?Medication ?Instructions ?Recorded ?Confirmed ?Last Taken ?Type Ocuvite 03/06/20 07/26/24 Unknown History flaxseed oil 03/06/20 07/26/24 Unknown History calcium ER 600 mg (as carb,cit)-D3 tab PO 02/17/24 07/26/24 Unknown History 12.5 mcg (500 unit) tablet, ext.rel (Citracal-D3 Slow Release) metformin 500 mg tablet 500 mg PO DAILY 06/27/24 08/02/24 Unknown History Exam Height,Weight and Vital Signs: Height 5 ft 4 in Weight 84.822 kg Last Vital Signs Temp 98.1 F 08/02/24 09:28 Pulse 66 08/02/24 09:28 Resp 18 08/02/24 09:28 BP 107/62 08/02/24 09:28 Pulse Ox 99 08/02/24 09:28 O2 Del Method Room Air 08/02/24 09:28 Pertinent Lab Results Pertinent Lab Results: Laboratory Tests 08/02/24 09:17 POC Glucose 115 Airway Mallampati Class: II TM Dist: >3cm Neck ROM: Full Heart: RRR Lungs: CTA Assessment and Plan Assessment Anesthesia Assessment: Anesthesia Plan Discussed and Chart Reviewed Final Anesthetic Review Family History of Problems with Anesthesia: No History of Problems with Anesthesia: No NPO: Yes ASA Class: II Final Preanesthetic Review: Meds/Allgs Chart Reviewed, Consent Obtained/Reviewed and Anes Risks/Benef Reviewed Patient Risk: Low Procedure Risk: Low Anesthetic Plan Anesthetic Plan: MAC: Disposition: Standard PACU
--- NOTE | 2024-08-02 11:23 | P.OPN-COLO_ITS ---
Colonoscopy Operative Note Operative Note Date of Service: 08/02/24 Narrative: Operative Information Procedure Description: Colonoscopy Indication: FH of CRC Anesthesia: MAC COLONOSCOPY Instrument: Olympus variable stiffness pediatric scope 190L Colonoscopy Monitoring: Vital signs and clinical assessment, continuous EKG monitoring, Pulse oximetry, Carbon Dioxide monitoring and blood pressure monitoring were done throughout the procedure. Colon withdrawal time was 15 minutes. Procedure: The patient was placed in the left lateral decubitis position and pre-procedure medications were administered. After a digital rectal examination of the ano-rectum, the video colonoscope was inserted into the rectum and advanced through the colon to the cecum/TI. The colonoscope was slowly withdrawn in a retrograde panoramic fashion and the colon mucosa was carefully examined including a retroflexed view of the rectum. Findings and interventions are described below. Procedure Difficulty: easy Findings: Terminal Ileum-not intubated Cecum: x1 sessile polyp 3-4 mm over the appendiceal orifice, lifted with saline and removed with cold forceps, x 2 sessile polyps 6-8 mm lifted with eleview and removed with cold snare Ascending Colon: 4-6 mm sessile polyp removed with cold forceps Transverse Colon -normal Descending Colon:normal Sigmoid Colon: severe diverticulosis, anastomosis also noted Rectum: Retroflexion with small internal hemorrhoids seen, grade I Anorectum - normal Intervention: cold forceps and cold snare, eleview injection and lift for EMR Colon preparation: [place] Bowel Preparation Scale Right colon; 2 Transverse colon: 2 Left colon; 2 (0 = Unprepared colon segment with mucosa not seen due to solid stool that cannot be cleared. 1 = Portion of mucosa of the colon segment seen, but other areas of the colon segment not well seen due to staining, residual stool and/or opaque liquid. 2 = Minor amount of residual staining, small fragments of stool and/or opaque liquid, but mucosa of colon segment seen well. 3 = Entire mucosa of colon segment seen well with no residual staining, small fragments of stool or opaque liquid) Impression and Post Procedure Diagnosis: diverticulosis colon polyps x 4 internal hemorrhoids Plan: High fiber diet leaflet Avoid straining at stool, epsom salts and sitz bath, anusol supps or cream Repeat Colonoscopy in 3 years due to polyps and FH or earlier if clinically indicated Above findings were reviewed with the patient and relevant handouts were provided if indicated.
[2024-08-02 11:32] VITALS: BP 108/53; PULSE 67; RESP 16; TEMP 36.6; O2SAT 95
[2024-08-02 11:47] VITALS: BP 117/66; PULSE 60; RESP 18; TEMP 36.2; O2SAT 96
== END 2024-08-02 12:06 | disposition home or self-care (01) ==
PROVIDERS: PCP Nurse Practitioner Family; Visit Provider Internal Medicine Gastroenterology
PROC: 0DJD8ZZ Inspection of Lower Intestinal Tract, Via Natural or Artificial Opening Endoscopic (ICD-10-PCS; CPT 45378; principal; 2024-08-02 12:10)
DX: Z12.11 Encounter for screening for malignant neoplasm of colon (principal); D12.0 Benign neoplasm of cecum; D12.2 Benign neoplasm of ascending colon; K63.89 Other specified diseases of intestine; K57.30 Diverticulosis of large intestine without perforation or abscess without bleeding; K64.0 First degree hemorrhoids; Z86.0101 Personal history of adenomatous and serrated colon polyps; Z80.0 Family history of malignant neoplasm of digestive organs; E11.9 Type 2 diabetes mellitus without complications; I10 Essential (primary) hypertension; E78.5 Hyperlipidemia, unspecified; Z79.02 Long term (current) use of antithrombotics/antiplatelets; Z79.84 Long term (current) use of oral hypoglycemic drugs; Z79.899 Other long term (current) drug therapy
CPT/HCPCS: 45385; 45381; 45380; 82947; 88305; J2003; J2704

== ENCOUNTER → 2024-08-02 08:44 | Outpatient (BNV) | payer MEDICARE, SELFPAY | PROVIDERS: PCP Nurse Practitioner Family; Visit Provider Internal Medicine Gastroenterology | DX: Z12.11 Encounter for screening for malignant neoplasm of colon (principal); Z80.0 Family history of malignant neoplasm of digestive organs; D12.0 Benign neoplasm of cecum; D12.2 Benign neoplasm of ascending colon; K57.30 Diverticulosis of large intestine without perforation or abscess without bleeding; K64.0 First degree hemorrhoids | CPT/HCPCS: 45380; 45381; 45385 ==

== ENCOUNTER 2024-08-31 08:56 | Outpatient (REF) | payer MEDICARE, SELFPAY ==
--- NOTE | ~2024-08-31 | MM_ITS ---
EXAMINATION: MM SCREENING DIGITAL BREAST TOMOSYNTHESIS, BILATERAL CLINICAL INFORMATION: Screening. Asymptomatic. COMPARISON: Mammography: Comparison is made with available priors TECHNIQUE: Digital breast mammography with tomosynthesis is performed in both the craniocaudal and mediolateral oblique views along with computer-aided detection (CAD). FINDINGS: There are scattered areas of fibroglandular density (ACR BI-RADS breast composition Category b). There are no significant masses, abnormal calcifications, or other abnormalities. MM/MM tomosynthesis screening BI IMPRESSION: No mammographic evidence of malignancy. ASSESSMENT: BI-RADS BI-RADS 1 - Negative RECOMMENDATION: Routine annual mammography screening. 1 year F/U This examination should not preclude the clinical evaluation of a suspicious palpable abnormality. This patient's information was entered into a reminder system with a target due date for their next mammogram. Electronically signed by: Kristina Jin DO 09/04/2024 05:52 PM EDT
== END 2024-08-31 08:57 | disposition home or self-care (01) ==
LOC: HO.MAMMO 08:56
PROVIDERS: PCP Nurse Practitioner Family; Visit Provider Nurse Practitioner Family
DX: Z12.31 Encounter for screening mammogram for malignant neoplasm of breast (principal)
CPT/HCPCS: 77063; 77067

== ENCOUNTER → 2024-08-31 09:15 | Outpatient (BNV) | payer MEDICARE, SELFPAY | PROVIDERS: PCP Nurse Practitioner Family; Visit Provider Internal Medicine | DX: Z12.31 Encounter for screening mammogram for malignant neoplasm of breast (principal) | CPT/HCPCS: 77063; 77067 ==

== ENCOUNTER 2024-11-27 08:24 | Outpatient (AMB) | payer MEDICARE, SELFPAY ==
--- NOTE | 2024-11-27 08:28 | MHC.PC.OV ---
Vital Signs 11/27/24 08:36 11/27/24 08:51 Height 5 ft 4 in Weight 199 lb 6 oz BMI 34.2 BP 140/65 H 140/70 H Blood Pressure Location Rt brachial Rt brachial Position Sitting Sitting Respiration 16 Pulse 67 64 Pulse Source Pulse Oximeter Auscultation Temp 97.9 F Temp Source Oral Pulse Oximetry (%) 99 Oxygen Delivery Method Room Air Intake Visit Reasons: pcp for mangement of dm Intake Note: patent here for follow up on DM [place] Required: No Is last menstrual period known: No Post menopausal: No Patient : No Allergies codeine Allergy (Severe, Verified 11/27/24 08:46) Codeine Sulfate- HIVES Seasonal Allergies Allergy (Intermediate, Verified 11/27/24 08:46) Runny Nose latex Adverse Reaction (Mild, Verified 11/27/24 08:46) Rash Medication List - Last Reconciled 11/27/24 by Francisco Schrader CNP amlodipine 5 mg PO DAILY atenolol 50 mg PO DAILY calcium carb, citrate-vit D3 600 mg-12.5 mcg (500 unit) ER (Citracal-D3 Slow Release) tabs PO cetirizine (Zyrtec) 10 mg PO DAILY [flaxseed oil ] fluticasone propionate 50 mcg/actuation (Allergy Relief (fluticasone)) 2 sprays intranasal DAILY PRN hydrochlorothiazide 25 mg PO DAILY metformin 500 mg PO DAILY [Ocuvite ] rosuvastatin 20 mg PO BEDTIME trazodone 50 mg PO BEDTIME PRN 30 days venlafaxine ER (Effexor XR) 75 mg PO QAM 30 days Tobacco use date assessed: 11/27/24 Fall risk assessment: 2 + Falls in past year Last assessed Fall Risk: 11/27/24 Dental Screening Dental Screen Date: 11/27/24 Did you have a dental visit in the last 12 months?: No Did you have a dental problem in the last 6 months where you did not have access to dental care?: No Was dental information given to patient?: No HPI HPI Comments History of Present Illness Details 74-year-old female presents for hypertension, diabetes, anxiety, and depression follow-up. She admits to taking her medications as prescribed without adverse reactions. She notes that lately she has not been making healthy dietary choices. However, she has been maintaining a low-sodium diet. She reports situational depression due to current political status of the country. She takes her Wellbutrin as prescribed. She also reports chronic bilateral knee pain, worse at night. Tylenol provides relief. She notes that her last retinal eye exam was with [facility] [place] 6 months ago. [facility] Medical History Family history of colorectal cancer Obesity History of benign schwannoma Arthritis Back pain Diverticulitis Diabetes mellitus type 2, diet-controlled Depression Elevated cholesterol Hypertension Surgical History History of surgery History of colonoscopy History of bowel resection Family History Family/Other Chronic mental illness Son In good health Son In good health Daughter In good health Lupus Mother Alzheimer disease Sister Colon cancer Other Mental health disorder Social History Household Members: Family Both parents involved: No Caregiver staying overnight: No Housing: House Are you a primary career and transition teacher to a significant other at home: No Do you presently have visiting nurse or other home services: No 75 years or older and lives alone: No Patient Tobacco Use Status: Former Tobacco user e-Cigarette/Vaping Use: Never Used Second Hand Smoke Exposure: No service: No Current occupational status: retired Current occupational exposures/hazards: No Cognitive needs: No Hearing needs: Yes Vision needs: Yes Questionnaire PHQ-9 Over the last 2 weeks, how often have you been bothered by any of the following problems? 1. Little interest or pleasure in doing things: several days 2. Feeling down, depressed, or hopeless: several days 3. Trouble falling or staying asleep, or sleeping too much: several days 4. Feeling tired or having little energy: several days 5. Poor appetite or overeating: several days 6. Feeling bad about yourself - or that you are a failure or have let yourself or your family down: not at all 7. Trouble concentrating on things, such as reading the newspaper or watching television: not at all 8. Moving or speaking so slowly that other people could have noticed. Or the opposite - being so fidgety or restless that you have been moving around a lot more than usual: several days 9. Thoughts that you would be better off or of hurting yourself in some way: not at all Total score: 6 Depression Screening Interpretation: Positive Depression Screening Follow-up: Existing condition and In treatment Depression Screening Done: Yes 52795 - PHQ-9 Billing: Yes Source: Developed by Drs. William Haji, Kristy Baker, Jeffrey Duran and colleagues, with an educational aranza from [employer]. Thrive Questionnaire Date Thrive assessed: 05/18/24 I am a: Patient What is your living situation today?: I have a steady place to live Within the past 12 months, did the food you bought not last and you didn't have the money to get more?: Never true Within the past 12 months, did you worry whether your food would run out before you got money to buy more?: Never true Do you have trouble paying for medicines?: No Do you have trouble getting transportation to medical appointments?: No Do you have trouble paying your heating and electricity bill?: No Do you have trouble taking care of your child, family member or friend?: No Do you have trouble with day-to-day activities such as bathing, preparing meals, shopping, managing finances, etc.?: No Are you currently unemployed and looking for a job?: No Are you interested in more education?: No Please select the resources that you would like help with: None Currently or been in a relationship where the following occur: No concerns reported THRIVE Score: 0 AASHISH-7 AMB Questionnaire AASHISH-7 Date AASHISH - 7 assessed: 11/27/24 Feeling nervous, anxious, or on edge: 1 = Several days Not being able to stop or control worryin = Several days Worrying too much about different things: 0 = Not at all Trouble relaxin = Not at all Being so restless that it is hard to sit still: 0 = Not at all Becoming easily annoyed or irritable: 1 = Several days Feeling afraid as if something awful might happen: 1 = Several days Total AASHISH-7 score (0-4 normal; 5-9 mild; 10-14 moderate; 15-21 severe): 4 Source: Developed by Kristy Chanel Kurt Kroenke and colleagues, with an educational aranza from [employer]. AASHISH-7 Assessment Billing AASHISH-7 Assessment Tool: AASHISH-7 Assessment 97291 Review of Systems Const Details: Const Denies chills, Denies fatigue, Denies fever(s), Denies headache(s) and Denies weakness ENT Denies dizziness and Denies headache(s) Card Denies chest pain, Denies lightheadedness, Denies dyspnea and Denies other (Palpitations) Resp Denies cough, Denies dyspnea, Denies wheezing and Denies other ( shortness of breath) GI Denies abdominal pain, Denies melena, Denies hematochezia, Denies change in bowel habits, Denies dyspepsia and Denies nausea Denies hematuria and Denies dysuria Musc Reports as per HPI Skin/Breast Denies rash, Denies unusual bruising and Denies wounds Neuro Denies abnormal gait, Denies dizziness, Denies headache(s), Denies memory loss, Denies numbness, Denies Sensory deficit (Neuro), Denies tingling and Denies weakness Psych Denies anxiety, Denies depression, Denies memory loss Endo Denies cold intolerance, Denies fatigue, Denies heat intolerance, Denies polydipsia and Denies polyuria Aller/Immun Denies wheezing Physical exam (Primary Care) Vital Signs: Last Vital Signs Temp 97.9 F 11/27/24 08:36 Pulse 67 11/27/24 08:36 Resp 16 11/27/24 08:36 BP 140/65 H 11/27/24 08:36 Pulse Ox 99 11/27/24 08:36 Oxygen Delivery Method Room Air 11/27/24 08:36 BMI result Body Mass Index 34.2 Tobacco/Smoking Status: Tobacco use Status Tobacco use date assessed 07/26/24 11/27/24 08:31 Patient Tobacco Use Status Former Tobacco user 11/27/24 08:31 e-Cigarette/Vaping Use Never Used 11/27/24 08:31 Depression Screening Interpretation: Positive Depression Screening Follow-up: Existing condition and In treatment Thrive Assessment: Date of Thrive Assessment Date Thrive assessed 05/18/24 11/27/24 08:31 Currently or been in a relationship where the following occur: No concerns reported Const Other: General: no acute distress and well developed Nutritional Appearance: well nourished Orientation/consciousness: patient oriented x3 HENLA Head: Yes normocephalic and Yes atraumatic Eyes General: appearance normal, both eyes and all related structures Pupils: Equal, round and reactive pupils present EOM: EOMs intact bilaterally Resp Effort & Inspection: normal respiratory effort Auscultation: clear to auscultation bilaterally Cardio Rate: regular rate Rhythm: regular rhythm Heart sounds: S1 normal heart sound present, S2 normal heart sound present, no gallops, no murmurs and no rubs GI Palpation (GI): No Abdominal aortic bruit present, Soft to palpation, nontender, No hepatosplenomegaly present and No Rebound tenderness present Auscultation: normal bowel sounds General: Yes no CVA tenderness Back/Spine/Pelvis Back: no CVA tenderness Cervical Spine: cervical ROM normal and No Cervical spine tenderness Thoracic/Lumbar Spine: thoraco-lumbar ROM normal, No pain with thoraco-lumbar ROM, No thoracic spinal tenderness and No lumbar spinal tenderness Extrem General: Yes normal to inspection, No edema/erythema and No calf tenderness, No overt injury or trauma Skin General: warm and dry. Normal skin color. Normal skin turgor Neuro General: patient oriented x3, gait normal and no focal neuro deficit Cranial nerves: Yes Equal, round and reactive pupils present Cognition (Neuro): normal cognition Gait exam (Neuro): Normal gait present Sensory Exam: No Sensory deficit (Neuro) Psych Appearance: grossly normal Affect: normal affect Attitude: cooperative Thought process: Normal thought process present Results AMB Hemoglobin A1c AMB Hemoglobin A1c 5.8 % Last Edit by Nkechi Odell MA on 11/27/24 09:05 Coding Level of Care Code Est Pt Level 4 (29676) Diagnoses Primary hypertension I10 Hypertension type: primary hypertension Well controlled type 2 diabetes mellitus E11.9 Major depressive disorder F32.9 Generalized anxiety disorder F41.1 Chronic pain of both knees M25.561; M25.562; G89.29 Additional Codes AASHISH-7 Assessment Billing - AASHISH-7 Assessment Tool: AASHISH-7 Assessment 68277 ([id number]) PHQ-9 - 10851 - PHQ-9 Billing: Yes ([id number]) Assessment & Plan Assessment & Plan (1) Hypertension: Code(s): I10 - Essential (primary) hypertension Category: Medical Qualifiers: Hypertension type: primary hypertension Qualified Code(s): I10 - Essential (primary) hypertension Plan: Resting blood pressure is 140/70, above goal of less than 140/80. Will increase amlodipine to 10 mg daily; advised to take as prescribed. Instructed on the risks, benefits, and potential adverse reactions of the medication. Continue to take atenolol as prescribed. Low-sodium diet encouraged. Follow-up in 1 month or sooner with symptoms or concerns. Verbalized understanding and agreed with the plan. (2) Well controlled type 2 diabetes mellitus: Code(s): E11.9 - Type 2 diabetes mellitus without complications Category: Medical Plan: A1c today is 5.8%, within goal of less than 7.0%. Previous A1c was 5.4%. Continue current treatment regimen. ADA diet and routine exercise encouraged. Will recheck A1c in 3 months. Her last diabetic retinal exam was with [facility] [place] 6 months ago; will request this record. Verbalized understanding and agreed with the plan. (3) Major depressive disorder: Code(s): F32.9 - Major depressive disorder, single episode, unspecified Category: Medical Plan: She reports situational depression due to current political status of the country. She takes her Wellbutrin as prescribed. PHQ-9 score reveals mild depression. AASHISH-7 score is normal. Continue current treatment regimen. Routine exercise encouraged. Follow-up with worsening or new symptoms. Verbalized understanding and agreed with the plan. (4) Generalized anxiety disorder: Code(s): F41.1 - Generalized anxiety disorder Category: Medical Plan: Plan as above. (5) Chronic pain of both knees: Code(s): M25.561 - Pain in right knee; M25.562 - Pain in left knee; G89.29 - Other chronic pain Category: Medical Plan: She also reports chronic bilateral knee pain, worse at night. Tylenol provides relief. No erythema, edema, or overt injury or trauma. Right knee x-ray in October 2023 revealed moderate to severe degenerative changes of the right knee. Tylenol ibuprofen as needed. One/cool compresses encouraged. Follow-up with worsening or new symptoms. Verbalized understanding and agreed with the plan. Orders: Orders AMB Hemoglobin A1c Today Z13.9 - Encounter for screening, unspecified Medications: Changed From amlodipine 5 mg PO DAILY 90 tabs 1RF To amlodipine 10 mg (2 x 5 mg) PO DAILY 90 tabs 1RF Refilled amlodipine 10 mg (2 x 5 mg) PO DAILY 180 tabs 1RF
[2024-11-27 08:36] VITALS: BP 140/65; PULSE 67; RESP 16; TEMP 36.6; O2SAT 99; BMI 34.2
[2024-11-27 08:51] VITALS: BP 140/70; PULSE 64
--- OUTSIDE RECORDS SUMMARY | 2024-11-27 09:03 | XMS_ITS | Clinical Summary ---
Author Organization [facility] Address [address] [place] [phone] Phone Care Team Providers Care Leather Grader Name Role Phone Brigette Hudson SOLE INKER Primary Care Provider Allergies Active Allergy Reactions Criticality Noted Date Comments Codeine Rash with Blisters High 06/18/2020 Latex Rash Low 06/18/2020 Medications amLODIPine (NORVASC) 5 MG tablet 05/19/2020 Active atenolol (TENORMIN) 50 mg tablet 05/19/2020 Active citalopram (CELEXA) 40 MG tablet 04/22/2020 Active hydroCHLOROthiazid e (HYDRODIURIL) 25 MG tablet 05/19/2020 Active rosuvastatin (CRESTOR) 20 MG tablet 04/22/2020 Active Active Problems No known active problems Immunizations Immunization Administration Dates Next Due COVID-19 (Pre-01/17) Pfizer Vaccine, mRNA, PF ,06/28/2020 Influenza High-Dose Quadrivalent Preservative Fr ee IM 11/22/2019 Influenza High-Dose Trivalent Preservative Free IM 12/15/2018 Tdap 11/22/2019 Social History Tobacco Use Types Packs/Day Years Used Date Smoking Tobacco: Former Smokeless Tobacco: Never Education Answer Date Recorded Are you interested in more education? Not on christofer e 07/23/2022 Are you concerned about learning? Not on file 07/23/2022 No 07/23/2022 No 07/23/2022 Digital Access Answer Date Recorded No 08/21/2022 No 08/21/2022 No 08/21/2022 Reliable internet access at home? Not on file 08/21/2022 Device with a working camera? Not on file Comments Unknown Sex and Gender Information Value Date Recorded Sex Assigned at Not on file Legal Sex Female 9:26 AM EDT Gender Identity Not on file Sexual Orientation Not on file Last Filed Vital Signs Vital Sign Reading Time Taken Comments Blood Pressure 141/79 10/22/2020 4:21 PM EDT Pulse 68 10/22/2020 4:21 PM EDT Temperature 36.6 C (97.8 F) 10/22/2020 4:21 PM EDT Respiratory Rate 20 10/22/2020 4:21 PM EDT Oxygen Saturation 96% 10/22/2020 4:21 PM EDT Inhaled Oxygen Concentration - - Weight 102.5 kg (226 lb) 10/22/2020 4:21 PM EDT Height 162.5 cm (5' 3.98 ) 10/22/2020 4:21 PM ED T Body Mass Index 38.82 10/22/2020 4:21 PM EDT Plan of Treatment Health Maintenance Due Date Last Done Comments LIPID PANEL 1952 POTASSIUM LEVEL 1952 DEPRESSION SCREENING 1964 SMOKING Hx and SMOKELESS TOBACCO SCREENING 1965 HEPATITIS C SCREENING 1970 MAMMOGRAM 1992 COLOGUARD 1997 COLONOSCOPY 1997 COLORECTAL CANCER SCREENING 1997 FIT TEST 1997 FOBT 1997 SIGMOIDOSCOPY 1997 VIRTUAL COLONOSCOPY 1997 PNEUMOCOCCAL VACCINES (50+ years) (1 of 1 - PCV) 2002 ZOSTER VACCINES (1 of 2) 2002 OSTEOPOROSIS SCREENING INITI AL (ONE-TIME) 2017 COVID-19 VACCINE (3 - 2023-2 5 season) 2023 07/20/2020, 06/28/2020 RSV VACCINE (1 - 1-dose 75+ series) 11/14/2027 Adult Td,Tdap Booster 11/21/2029 11/22/2019 HEPATITIS A VACCINES Aged Out No long er eligible based on patient's age to complete this topic HIB VACCINES Aged Out No longer eligi ble based on patient's age to complete this topic MENINGOCOCCAL VACCINES (ACWY) Aged Out No longer eligible based on patient's age to complete this topic MENINGOCOCCAL VACCINES (B) Aged Out N o longer eligible based on patient's age to complete this topic Medical Devices Not on file Insurance Member Subscriber Plan / Payer (Ef fective 2020-Present) Name:Amita Patricio Relation to Subscriber:Self Name:Amita Patricio Payer ID:[id number] (NAIC) Type:Medicare Address: [place] [id number] MEDICARE REPLACEMENT Member Subscriber Plan / Payer (Ef fective 2020-Present) Name:Amita Patricio Relation to Subscriber:Self Name:Salena Patriciohleen Payer ID:[id number] (NAIC) Type:Medicare Address: [place] [id number] MEDICARE REPLACEMENT Member Subscriber Plan / Payer (Ef fective 2020-Present) Name:Sheng Amita Relation to Subscriber:Self Name:Salena Patriciohleen Payer ID:[id number] (NAIC) Type:Medicare Address: [place] [id number] MEDICARE REPLACEMENT MEDICARE REPLACEMENT MEDICARE REPLACEMENT Care Teams Leather Grader Relationship Specialty Start Date End Date Brigette Hudson NP PCP - General Family Medicine 06/18/20 Additional Source Comments The information contained in this document represents components of the legal health record. It is not the complete legal health record.[facility]
== END 2024-11-27 09:12 | disposition home or self-care (01) ==
LOC: HO.HMCFM 08:25
PROVIDERS: PCP Nurse Practitioner Family; Visit Provider Nurse Practitioner Family
DX: I10 Essential (primary) hypertension (principal); E11.9 Type 2 diabetes mellitus without complications; F32.9 Major depressive disorder, single episode, unspecified; F41.1 Generalized anxiety disorder; M25.561 Pain in right knee; M25.562 Pain in left knee; G89.29 Other chronic pain; Z13.9 Encounter for screening, unspecified

== ENCOUNTER 2024-11-27 08:24 | Outpatient (REF) | payer MEDICARE, SELFPAY ==
[2024-11-27 12:07] LABS: Microalbum/Creatinine Ratio Ur 8.4 ug/mg cr (<30)
[2024-11-27 14:55] LABS: Alanine Aminotransferase 19 U/L (0-31); Albumin Level 4.9 g/dL (3.5-5.0); Alkaline Phosphatase 52 U/L (39-117); Anion Gap 12 (12-20); Aspartate Amino Transferase 29 U/L (5-31); Blood Urea Nitrogen 14 mg/dL (9-16); Calcium 9.8 mg/dL (8.4-10.2); Carbon Dioxide 28 mmol/L (22-29); Chloride 104 mmol/L (96-108); Estimated Glomerular Filt Rate > 60; Potassium 4.0 mmol/L (3.3-5.1); Sodium 140 mmol/L (135-145); Total Protein 7.3 g/dL (6.5-8.0)
== END 2024-11-27 08:25 | disposition home or self-care (01) ==
LOC: HO.WFDLDS 08:24
PROVIDERS: Physician Assistant; PCP Nurse Practitioner Family; Visit Provider Nurse Practitioner Family
DX: I10 Essential (primary) hypertension (principal); E11.9 Type 2 diabetes mellitus without complications; R73.01 Impaired fasting glucose; E78.5 Hyperlipidemia, unspecified; F32.9 Major depressive disorder, single episode, unspecified; F41.1 Generalized anxiety disorder; M25.561 Pain in right knee; M25.562 Pain in left knee; G89.29 Other chronic pain; Z79.84 Long term (current) use of oral hypoglycemic drugs; Z79.899 Other long term (current) drug therapy
CPT/HCPCS: 36415; 80053; 82043; 82570; 83036; 96127; 99212

== ENCOUNTER 2024-12-28 08:57 | Outpatient (AMB) | payer MEDICARE, SELFPAY ==
--- NOTE | 2024-12-28 09:00 | A.OFFPC_ITS ---
Vital Signs 12/28/24 09:10 Height 5 ft 4 in Weight 202 lb 6 oz BMI 34.7 BP 128/70 Blood Pressure Location Rt brachial Position Sitting Respiration 16 Pulse 73 Pulse Source Pulse Oximeter Temp 98.0 F Temp Source Oral Pulse Oximetry (%) 100 Oxygen Delivery Method Room Air Intake Visit Reasons: 1 mos HTN Intake Note: patient here for follow up on HTN. patient got bit by a dear tick in july would like to speak to you about. 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 Is last menstrual period known: No Post menopausal: No Patient : No Allergies codeine Allergy (Severe, Verified 12/28/24 09:15) Codeine Sulfate- HIVES Seasonal Allergies Allergy (Intermediate, Verified 12/28/24 09:15) Runny Nose latex Adverse Reaction (Mild, Verified 12/28/24 09:15) Rash Medication List - Last Reconciled 12/28/24 by Francisco Schrader CNP amlodipine 10 mg (2 x 5 mg) PO DAILY atenolol 50 mg PO DAILY calcium carb, citrate-vit D3 600 mg-12.5 mcg (500 unit) ER (Citracal-D3 Slow Release) tabs PO cetirizine (Zyrtec) 10 mg PO DAILY [flaxseed oil ] fluticasone propionate 50 mcg/actuation (Allergy Relief (fluticasone)) 2 sprays intranasal DAILY PRN hydrochlorothiazide 25 mg PO DAILY metformin 500 mg PO DAILY [Ocuvite ] rosuvastatin 20 mg PO BEDTIME trazodone 50 mg PO BEDTIME PRN 30 days venlafaxine ER (Effexor XR) 75 mg PO QAM 30 days Tobacco use date assessed: 12/28/24 Fall risk assessment: 2 + Falls in past year Last assessed Fall Risk: 12/28/24 Dental Screening Dental Screen Date: 12/28/24 Did you have a dental visit in the last 12 months?: No Did you have a dental problem in the last 6 months where you did not have access to dental care?: No Was dental information given to patient?: No HPI HPI Comments History of Present Illness Details 74-year-old female presents for hyperten chay follow-up. She admits to taking her medications as prescribed without adverse reactions. She has been making poor dietary choices. She walks routinely. She states that she got bitten by a dear tick, to her right upper chest, during a walk in July 2024. She completely removed the tick and applied rubbing alcohol to the area. She has not experienced any symptoms. She wants to check for lyme disease. She denies acute symptoms at this. [facility]LY [facility] Medical History Family history of colorectal cancer Obesity History of benign schwannoma Arthritis Back pain Diverticulitis Diabetes mellitus type 2, diet-controlled Depression Elevated cholesterol Hypertension Surgical History History of surgery History of colonoscopy History of bowel resection Family History Family/Other Chronic mental illness Son In good health Son In good health Daughter In good health Lupus Mother Alzheimer disease Sister Colon cancer Other Mental health disorder Social History Household Members: Family Both parents involved: No Caregiver staying overnight: No Housing: House Are you a primary rn transitional care to a significant other at home: No Do you presently have visiting nurse or other home services: No 75 years or older and lives alone: No Patient Tobacco Use Status: Former Tobacco user e-Cigarette/Vaping Use: Never Used Second Hand Smoke Exposure: No service: No Current occupational status: retired Current occupational exposures/hazards: No Cognitive needs: No Hearing needs: Yes Vision needs: Yes Questionnaire Thrive Questionnaire Date Thrive assessed: 05/18/24 I am a: Patient What is your living situation today?: I have a steady place to live Within the past 12 months, did the food you bought not last and you didn't have the money to get more?: Never true Within the past 12 months, did you worry whether your food would run out before you got money to buy more?: Never true Do you have trouble paying for medicines?: No Do you have trouble getting transportation to medical appointments?: No Do you have trouble paying your heating and electricity bill?: No Do you have trouble taking care of your child, family member or friend?: No Do you have trouble with day-to-day activities such as bathing, preparing meals, shopping, managing finances, etc.?: No Are you currently unemployed and looking for a job?: No Are you interested in more education?: No Please select the resources that you would like help with: None Currently or been in a relationship where the following occur: No concerns reported THRIVE Score: 0 AASHISH-7 AMB Questionnaire AASHISH-7 Date AASHISH - 7 assessed: 11/27/24 Source: Developed by Drs. William Haji, Kristy Baker, Jeffrey Duran and colleagues, with an educational aranza from [employer]. Review of Systems Const Details: Const Denies chills, Denies fatigue, Denies fever(s), Denies headache(s) and Denies weakness ENT Denies dizziness and Denies headache(s) Card Denies chest pain, Denies lightheadedness, Denies dyspnea and Denies other (Palpitations) Resp Denies cough, Denies dyspnea, Denies wheezing and Denies other ( shortness of breath) GI Denies abdominal pain, Denies melena, Denies hematochezia, Denies change in bowel habits, Denies dyspepsia and Denies nausea Denies hematuria and Denies dysuria Musc Denies abnormal gait, Denies myalgias, Denies arthralgias, Denies numbness and Denies tingling Skin/Breast Denies rash, Denies unusual bruising and Denies wounds Neuro Denies abnormal gait, Denies dizziness, Denies headache(s), Denies memory loss, Denies numbness, Denies Sensory deficit (Neuro), Denies tingling and Denies weakness Psych Denies anxiety, Denies depression, Denies memory loss Endo Denies cold intolerance, Denies fatigue, Denies heat intolerance, Denies polydipsia and Denies polyuria Aller/Immun Denies wheezing Physical exam (Primary Care) Tobacco/Smoking Status: Tobacco use Status Tobacco use date assessed 11/27/24 12/28/24 09:02 Patient Tobacco Use Status Former Tobacco user 12/28/24 09:02 e-Cigarette/Vaping Use Never Used 12/28/24 09:02 Thrive Assessment: Date of Thrive Assessment Date Thrive assessed 05/18/24 12/28/24 09:02 Currently or been in a relationship where the following occur: No concerns reported Const Other: General: no acute distress and well developed Nutritional Appearance: well nourished Orientation/consciousness: patient oriented x3 [facility] Head: Yes normocephalic and Yes atraumatic Eyes General: appearance normal, both eyes and all related structures Pupils: Equal, round and reactive pupils present EOM: EOMs intact bilaterally Resp Effort & Inspection: normal respiratory effort Auscultation: clear to auscultation bilaterally Cardio Rate: regular rate Rhythm: regular rhythm Heart sounds: S1 normal heart sound present, S2 normal heart sound present, no gallops, no murmurs and no rubs GI Palpation (GI): No Abdominal aortic bruit present, Soft to palpation, nontender, No hepatosplenomegaly present and No Rebound tenderness present Auscultation: normal bowel sounds General: Yes no CVA tenderness Back/Spine/Pelvis Back: no CVA tenderness Cervical Spine: cervical ROM normal and No Cervical spine tenderness Thoracic/Lumbar Spine: thoraco-lumbar ROM normal, No pain with thoraco-lumbar ROM, No thoracic spinal tenderness and No lumbar spinal tenderness Extrem General: Yes normal to inspection, No edema and No calf tenderness Skin General: warm and dry. Normal skin color. Normal skin turgor Neuro General: patient oriented x3, gait normal and no focal neuro deficit Cranial nerves: Yes Equal, round and reactive pupils present Cognition (Neuro): normal cognition Gait exam (Neuro): Normal gait present Sensory Exam: No Sensory deficit (Neuro) Psych Appearance: grossly normal Affect: normal affect Attitude: cooperative Thought process: Normal thought process present Coding Level of Care Code Est Pt Level 4 (42048) Diagnoses Primary hypertension I10 Hypertension type: primary hypertension Tick bite W57.XXXA Poor nutrition E63.9 Assessment & Plan Assessment & Plan (1) Hypertension: Code(s): I10 - Essential (primary) hypertension Category: Medical Qualifiers: Hypertension type: primary hypertension Qualified Code(s): I10 - Es sential (primary) hypertension Plan: Blood pressure is 120/70, within goal of less than 130/80. Continue current treatment regimen. Low-sodium diet encouraged. Follow-up in 3 months for hypertension, diabetes, anxiety, and depression. Return sooner with symptoms or concerns. Verbalized understanding and agreed with the plan. (2) Tick bite: Code(s): W57.XXXA - Bitten or stung by nonvenomous insect and other nonvenomous arthropods, initial encounter Category: Medical Plan: She states that she got bitten by a dear tick, to her right upper chest, during a walk in July 2024. She completely removed the tick and applied rubbing alcohol to the area. She has not experienced any symptoms. She wants to check for lyme disease. Will check Lyme titer and make changes as needed. (3) Poor nutrition: Code(s): E63.9 - Nutritional deficiency, unspecified Category: Medical Plan: She has been making poor dietary choices. She walks routinely. Healthy diet and routine exercise encouraged. Verbalized understanding and agreed with the plan. Orders: Orders Lyme IgG/IgM w/reflex to WB Today W57.XXXA - Bitten or stung by nonvenomous insect and other nonvenomous arthropods, initial encounter
[2024-12-28 09:10] VITALS: BP 128/70; PULSE 73; RESP 16; TEMP 36.7; O2SAT 100; BMI 34.7
--- OUTSIDE RECORDS SUMMARY | 2024-12-28 09:23 | XMS_ITS | Clinical Summary ---
Author Organization [facility] Address [address] [place] [id number] Phone Care Team Providers Care Manager Spanish Name Role Phone Brigette Hudson EMPLOYEE'S REPRESENTATIVE Primary Care Provider Allergies Active Allergy Reactions [...] 2002 OSTEOPOROSIS SCREENING INITI AL (ONE-TIME) 2017 INFLUENZA VACCINE (#1) 2024 , 12/15/2018 COVID-19 VACCINE (3 - 2024-2 6 season) 2024 07/20/2020, 06/28/2020 RSV VACCINE (1 - 1-dose [...] topic Medical Devices Not on file Insurance [place] [id number] MEDICARE REPLACEMENT [place] [id number] [place] [address] MEDICARE REPLACEMENT MEDICARE REPLACEMENT MEDICARE REPLACEMENT Member Subscriber Plan / Payer (Ef fective 2020-Present) Name:Amita Patricio Relation to Subscriber:Self Name:ShengAmita Payer ID:[id number] (NAIC) Type:Medicare Address: [place] [id number] MEDICARE REPLACEMENT Member Subscriber Plan / Payer (Ef fective 2020-Present) Name:Amita Patricio Relation to Subscriber:Self Name:Sheng Amita Payer ID:[id number] (NAIC) Type:Medicare Address: [place] [id number] MEDICARE REPLACEMENT Member Subscriber Plan / Payer (Ef fective 2020-Present) Name:Amita Patricio Relation to Subscriber:Self Name:Amita Patricio Payer ID:[id number] (NAIC) Type:Medicare Address: [place] [id number] [place] [address] Care Teams Manager Spanish Relationship Specialty Start Date End Date Brigette Hudson NP PCP - General Family Medicine 06/18/20 Additional Source Comments The information contained in this document represents components of the legal health record. It is not the complete legal health record.[facility]
== END 2024-12-28 09:27 | disposition home or self-care (01) ==
LOC: HO.HMCFM 08:57
PROVIDERS: PCP Nurse Practitioner Family; Visit Provider Nurse Practitioner Family
DX: I10 Essential (primary) hypertension (principal); W57.XXXA Bitten or stung by nonvenomous insect and other nonvenomous arthropods, initial encounter; E63.9 Nutritional deficiency, unspecified

== ENCOUNTER 2024-12-28 08:57 | Outpatient (REF) | payer MEDICARE, SELFPAY ==
[2024-12-31 23:38] LABS: Lyme Abs Screen <0.90 index
== END 2024-12-28 08:58 | disposition home or self-care (01) ==
LOC: HO.WFDLDS 08:57
PROVIDERS: PCP Nurse Practitioner Family; Visit Provider Nurse Practitioner Family
DX: I10 Essential (primary) hypertension (principal); E63.9 Nutritional deficiency, unspecified; S20.361A Insect bite (nonvenomous) of right front wall of thorax, initial encounter; W57.XXXA Bitten or stung by nonvenomous insect and other nonvenomous arthropods, initial encounter
CPT/HCPCS: 36415; 86617; 86618; 99212

== ENCOUNTER 2025-03-01 10:33 | Outpatient (AMB) | payer MEDICARE, SELFPAY ==
--- NOTE | 2025-03-01 10:36 | MHC.PC.OV ---
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 Is last menstrual period known: No Post menopausal: No Patient : No Allergies codeine Allergy (Severe, Verified 03/01/25 11:00) Codeine Sulfate- HIVES Seasonal Allergies Allergy (Intermediate, Verified 03/01/25 11:00) Runny Nose latex Adverse Reaction (Mild, Verified 03/01/25 11:00) Rash Medication List - Last Reconciled 03/01/25 by Francisco Schrader CNP amlodipine 10 mg (2 x 5 mg) PO DAILY atenolol 50 mg PO DAILY calcium carb, citrate-vit D3 600 mg-12.5 mcg (500 unit) ER (Citracal-D3 Slow Release) tabs PO cetirizine (Zyrtec) 10 mg PO DAILY [flaxseed oil ] fluticasone propionate 50 mcg/actuation (Allergy Relief (fluticasone)) 2 sprays intranasal DAILY PRN hydrochlorothiazide 25 mg PO DAILY metformin 500 mg PO DAILY [Ocuvite ] rosuvastatin 20 mg PO BEDTIME trazodone 50 mg PO BEDTIME PRN 30 days venlafaxine ER (Effexor XR) 75 mg PO QAM 30 days Tobacco use date assessed: 03/01/25 Fall risk assessment: No Falls in past year Last assessed Fall Risk: 03/01/25 Dental Screening Dental Screen Date: 03/01/25 Did you have a dental visit in the last 12 months?: No Did you have a dental problem in the last 6 months where you did not have access to dental care?: No Was dental information given to patient?: No HPI HPI Comments History of Present Illness Details 74-year-old female presents for hypertension, diabetes, anxiety, and depression follow-up. She admits to taking her medications as prescribed without adverse reactions. She notes that she has been making healthy lifestyle changes. She reports feeling of not being able to swallow for 3-4 minutes, on two occasions, while eating chicken in the past one month. Denies associated symptoms such as swelling, difficulty breathing, or chest pain. She notes that her mother had allergy to chicken with anaphylactic reaction. FORMERLY [facility] Medical History Family history of colorectal cancer Obesity History of benign schwannoma Arthritis Back pain Diverticulitis Diabetes mellitus type 2, diet-controlled Depression Elevated cholesterol Hypertension Surgical History History of surgery History of colonoscopy History of bowel resection Family History Family/Other Chronic mental illness Son In good health Son In good health Daughter In good health Lupus Mother Alzheimer disease Sister Colon cancer Other Mental health disorder Social History Household Members: Family Both parents involved: No Caregiver staying overnight: No Housing: House Are you a primary healthcare liaison to a significant other at home: No Do you presently have visiting nurse or other home services: No 75 years or older and lives alone: No Patient Tobacco Use Status: Former Tobacco user e-Cigarette/Vaping Use: Never Used Second Hand Smoke Exposure: No Patient : No service: No Current occupational status: retired Current occupational exposures/hazards: No Cognitive needs: No Hearing needs: Yes Vision needs: Yes Questionnaire PHQ-9 Over the last 2 weeks, how often have you been bothered by any of the following problems? 1. Little interest or pleasure in doing things: not at all 2. Feeling down, depressed, or hopeless: not at all 3. Trouble falling or staying asleep, or sleeping too much: several days 4. Feeling tired or having little energy: several days 5. Poor appetite or overeating: not at all 6. Feeling bad about yourself - or that you are a failure or have let yourself or your family down: not at all 7. Trouble concentrating on things, such as reading the newspaper or watching television: not at all 8. Moving or speaking so slowly that other people could have noticed. Or the opposite - being so fidgety or restless that you have been moving around a lot more than usual: not at all 9. Thoughts that you would be better off or of hurting yourself in some way: not at all Total score: 2 Depression Screening Interpretation: Negative Depression Screening Done: Yes 85791 - PHQ-9 Billing: Yes Source: Developed by Drs. William Haji, Jeffrey Barcenas and colleagues, with an educational aranza from [employer]. Thrive Questionnaire Date Thrive assessed: 05/18/24 I am a: Patient What is your living situation today?: I have a steady place to live Within the past 12 months, did the food you bought not last and you didn't have the money to get more?: Never true Within the past 12 months, did you worry whether your food would run out before you got money to buy more?: Never true Do you have trouble paying for medicines?: No Do you have trouble getting transportation to medical appointments?: No Do you have trouble paying your heating and electricity bill?: No Do you have trouble taking care of your child, family member or friend?: No Do you have trouble with day-to-day activities such as bathing, preparing meals, shopping, managing finances, etc.?: No Are you currently unemployed and looking for a job?: No Are you interested in more education?: No Please select the resources that you would like help with: None Currently or been in a relationship where the following occur: No concerns reported THRIVE Score: 0 AASHISH-7 AMB Questionnaire AASHISH-7 Date AASHISH - 7 assessed: 03/01/25 Feeling nervous, anxious, or on edge: 0 = Not at all Not being able to stop or control worryin = Not at all Worrying too much about different things: 0 = Not at all Trouble relaxin = Not at all Being so restless that it is hard to sit still: 0 = Not at all Becoming easily annoyed or irritable: 0 = Not at all Feeling afraid as if something awful might happen: 0 = Not at all Total AASHISH-7 score (0-4 normal; 5-9 mild; 10-14 moderate; 15-21 severe): 0 Source: Developed by Drs. William Haji, Jeffrey Barcenas and colleagues, with an educational aranza from [employer]. AASHISH-7 Assessment Billing AASHISH-7 Assessment Tool: AASHISH-7 Assessment 32004 Review of Systems Const Details: Const Denies chills, Denies fatigue, Denies fever(s), Denies headache(s) and Denies weakness ENT Denies dizziness and Denies headache(s) Card Denies chest pain, Denies lightheadedness, Denies dyspnea and Denies other (Palpitations) Resp Denies cough, Denies dyspnea, Denies wheezing and Denies other ( shortness of breath) GI Denies abdominal pain, Denies melena, Denies hematochezia, Denies change in bowel habits, Denies dyspepsia and Denies nausea Denies hematuria and Denies dysuria Musc Denies abnormal gait, Denies myalgias, Denies arthralgias, Denies numbness and Denies tingling Skin/Breast Denies rash, Denies unusual bruising and Denies wounds Neuro Denies abnormal gait, Denies dizziness, Denies headache(s), Denies memory loss, Denies numbness, Denies Sensory deficit (Neuro), Denies tingling and Denies weakness Psych Denies anxiety, Denies depression, Denies memory loss Endo Denies cold intolerance, Denies fatigue, Denies heat intolerance, Denies polydipsia and Denies polyuria Aller/Immun Denies wheezing Physical exam (Primary Care) Vital Signs: Last Vital Signs Temp 97.5 F 03/01/25 10:41 Pulse 63 03/01/25 10:41 Resp 16 03/01/25 10:41 BP 124/58 L 03/01/25 10:41 Pulse Ox 100 03/01/25 10:41 Oxygen Delivery Method Room Air 03/01/25 10:41 BMI result Body Mass Index 35.0 Tobacco/Smoking Status: Tobacco use Status Tobacco use date assessed 03/01/25 03/01/25 10:47 Patient Tobacco Use Status Former Tobacco user 03/01/25 10:36 e-Cigarette/Vaping Use Never Used 03/01/25 10:36 PHQ-9: PHQ-9 Score PHQ-9: Total score 2 03/01/25 10:51 Depression Screening Interpretation: Negative Thrive Assessment: Date of Thrive Assessment Date Thrive assessed 05/18/24 03/01/25 10:36 Currently or been in a relationship where the following occur: No concerns reported Const Other: General: no acute distress and well developed Nutritional Appearance: well nourished Orientation/consciousness: patient oriented x3 [facility] Head: Yes normocephalic and Yes atraumatic Eyes General: appearance normal, both eyes and all related structures Pupils: Equal, round and reactive pupils present EOM: EOMs intact bilaterally Resp Effort & Inspection: normal respiratory effort Auscultation: clear to auscultation bilaterally Cardio Rate: regular rate Rhythm: regular rhythm Heart sounds: S1 normal heart sound present, S2 normal heart sound present, no gallops, no murmurs and no rubs Extrem General: Yes normal to inspection, No edema and No calf tenderness Skin General: warm and dry. Normal skin color. Normal skin turgor Neuro General: patient oriented x3, gait normal and no focal neuro deficit Cranial nerves: Yes Equal, round and reactive pupils present Cognition (Neuro): normal cognition Gait exam (Neuro): Normal gait present Sensory Exam: No Sensory deficit (Neuro) Psych Appearance: grossly normal Affect: normal affect Attitude: cooperative Thought process: Normal thought process present Results AMB Hemoglobin A1c AMB Hemoglobin A1c 6.0 % Last Edit by PAT Vila on 03/01/25 11:11 Coding Level of Care Code Est Pt Level 4 (93993) Diagnoses Primary hypertension I10 Hypertension type: primary hypertension Type 2 diabetes mellitus E11.9 Generalized anxiety disorder F41.1 Major depressive disorder F32.9 Difficulty swallowing R13.10 Additional Codes AASHISH-7 Assessment Billing - AASHISH-7 Assessment Tool: AASHISH-7 Assessment 43347 ([id number]) PHQ-9 - 51084 - PHQ-9 Billing: Yes ([id number]) Assessment & Plan Assessment & Plan (1) Hypertension: Code(s): I10 - Essential (primary) hypertension Category: Medical Qualifiers: Hypertension type: primary hypertension Qualified Code(s): I10 - Essential (primary) hypertension Plan: Blood pressure is 124/58, within goal of less than 130/80. Continue current treatment regimen. Low-sodium diet encouraged. Follow-up in 3 months with a new provider within the practice for transfer of care, hypertension, diabetes, anxiety, and depression. Return sooner with symptoms or concerns. Verbalized understanding and agreed with the plan. (2) Type 2 diabetes mellitus: Code(s): E11.9 - Type 2 diabetes mellitus without complications Category: Medical Plan: A1c today 6.0%, within goal of less than 7.0%. Previous A1c was 5.9%. Continue current treatment regimen. ADA diet and routine exercise encouraged. Follow-up in 3 months. Verbalized understanding and agreed with the plan. (3) Generalized anxiety disorder: Code(s): F41.1 - Generalized anxiety disorder Category: Medical Plan: PHQ-9 and AASHISH-7 scores are normal. Continue current treatment regimen. Routine exercise encouraged. Follow-up in 3 months. Verbalized understanding and agreed with the plan. (4) Major depressive disorder: Code(s): F32.9 - Major depressive disorder, single episode, unspecified Category: Medical Plan: Plan as above. (5) Difficulty swallowing: Code(s): R13.10 - Dysphagia, unspecified Category: Medical Plan: She reports feeling of not being able to swallow for 3-4 minutes, on two occasions, while eating chicken in the past one month. Denies associated symptoms such as swelling, difficulty breathing, or chest pain. She notes that her mother had allergy to chicken with anaphylactic reaction. Unclear whether that was an allergic response. Encouraged to she had her food properly before swallowing. Declines referral to an needle felt making machine operator and states that she will eliminate chicken in her diet instead. Encouraged to follow-up as needed. Verbalized understanding and agreed with the plan. Orders: Orders AMB Hemoglobin A1c Today Z13.9 - Encounter for screening, unspecified
[2025-03-01 10:41] VITALS: BP 124/58; PULSE 63; RESP 16; TEMP 36.4; O2SAT 100; BMI 35.0
== END 2025-03-01 11:16 | disposition home or self-care (01) ==
LOC: HO.HMCFM 10:34
PROVIDERS: PCP Nurse Practitioner Family; Visit Provider Nurse Practitioner Family
DX: I10 Essential (primary) hypertension (principal); E11.9 Type 2 diabetes mellitus without complications; F41.1 Generalized anxiety disorder; F32.9 Major depressive disorder, single episode, unspecified; R13.10 Dysphagia, unspecified; Z13.9 Encounter for screening, unspecified

== ENCOUNTER → 2025-03-01 10:33 | Outpatient (BNVA) | payer MEDICARE, SELFPAY | PROVIDERS: PCP Nurse Practitioner Family; Visit Provider Nurse Practitioner Family | DX: I10 Essential (primary) hypertension (principal); E11.9 Type 2 diabetes mellitus without complications; F41.1 Generalized anxiety disorder; F32.9 Major depressive disorder, single episode, unspecified; R13.10 Dysphagia, unspecified; Z13.31 Encounter for screening for depression; Z13.39 Encounter for screening examination for other mental health and behavioral disorders; Z79.899 Other long term (current) drug therapy | CPT/HCPCS: 83036; 96127; 99212 ==